=== PATIENT | female | born 1950 | race Hispanic/Latino ===

== ENCOUNTER 2019-01-11 23:16 | Observation (INO) | payer OTHER ==
[2019-01-12 01:12] LABS: Absolute Lymphocytes (CBC) 1.8 K/uL (0.7-4.9); Absolute Monocytes 0.8 K/uL (0.1-1.3); Absolute Neutrophil 5.8 K/uL (1.8-8.0); Basophils % 0.5 % (0-1.3); Eosinophils % 1.7 % (0-4.4); Hematocrit 27.8 % (36.0-45.0); Lymphocytes % 21.3 % (15.3-44.8); MPV 8.9 fL (7.6-11.3); Monocytes % 9.3 % (3.3-12.3); RBC Red Blood Cell Count 3.66 M/uL (3.86-4.86)
[2019-01-12 01:13] LABS: Protime INR 0.99
[2019-01-12 01:30] LABS: ALT/SGPT 19 U/L (12-78); AST/SGOT 15 U/L (15-37); Albumin 3.9 g/dL (3.4-5.0); Alkaline Phosphatase 95 U/L (45-117); BUN Blood Urea Nitrogen 23 mg/dL (7-18); Bicarbonate 29 mmol/L (21-32); Bilirubin Direct < 0.1 mg/dL (0-0.2); Bilirubin Total 0.2 mg/dL (0.2-1.0); Glucose Level 144 mg/dL (74-106); Magnesium 2.5 mg/dL (1.8-2.4); NT PRO-BNP 303 pg/mL (<125); Potassium 3.8 mmol/L (3.5-5.1); Protein, Total 7.2 g/dL (6.4-8.2); Sodium Level 143 mmol/L (136-145); Troponin (Emerg Dept Use Only) 0.02 ng/mL (0.0-0.045)
[2019-01-12] MEDS ORDERED: ACETAMINOPHEN 500 MG TAB PO PRN (02:55)
[2019-01-12] MEDS ORDERED: ONDANSETRON 4 MG/2 ML VIAL IV PRN (02:55)
[2019-01-12] MEDS ORDERED: IPRATROPIUM BROM 0.5MG/2.5ML NEB PRN (02:55)
[2019-01-12] MEDS ORDERED: MORPHINE 2 MG/ML SYR IV PRN (02:55)
[2019-01-12] MEDS ORDERED: ALBUTEROL 2.5 MG/3 ML NEB SOL NEB PRN (02:55)
[2019-01-12] MEDS ORDERED: SODIUM CHLORIDE 0.9% 10ML INJ IV PRN (03:01)
--- NOTE | 2019-01-12 03:01 | ER ---
Nurse's Notes [facility] Name: Sharon Medina Age: 68 yrs Sex: Female : 1950 Arrival Date: 01/11/2019 Time: 23:18 Bed 20 Private MD: Diagnosis: Chest pain, unspecified;Shortness of breath Presentation: 01/11 23:25 Presenting complaint: Patient states: I have been having chest pain and shortness of jb4 breath for about the past 2 weeks. It feels the same as it did the last time I had bronchitis. 23:25 Transition of care: patient was not received from another setting of care. Onset of jb4 symptoms was December 28, 2018. Risk Assessment: Do you want to hurt yourself or someone else? Patient reports no desire to harm self or others. Initial Sepsis Screen: Does the patient meet any 2 criteria? No. Patient's initial sepsis screen is negative. Does the patient have a suspected source of infection? No. Patient's initial sepsis screen is negative. Care prior to arrival: None. 23:25 Method Of Arrival: Ambulatory jb4 23:25 Acuity: DEBBI 3 jb4 Triage Assessment: 23:25 General: Appears in no apparent distress. uncomfortable, Behavior is calm, cooperative, jb4 appropriate for age. Pain: Complains of pain in chest Pain radiates to right scapular area Pain currently is 6 out of 10 on a pain scale. Quality of pain is described as pressure, Pain began 2 weeks ago. EENT: No signs and/or symptoms were reported regarding the EENT system. Neuro: Level of Consciousness is awake, alert, obeys commands, Oriented to person, place, time, Appropriate for age. Cardiovascular: Heart tones S1 S2 present Patient's skin is warm and dry. Rhythm is sinus rhythm. Respiratory: Airway is patent Respiratory effort is even, labored, Respiratory pattern is regular, symmetrical, Breath sounds are clear bilaterally. GI: No signs and/or symptoms were reported involving the gastrointestinal system. : No signs and/or symptoms were reported regarding the genitourinary system. Derm: Skin is intact, Skin is pink, warm \T\ dry. Musculoskeletal: Circulation, motion, and sensation intact. Historical: - Allergies: 23:25 No Known Allergies; jb4 - Home Meds: 23:25 ProAir HFA 90 mcg/actuation inhalation HFAA [Active]; furosemide 40 mg Oral tab jb4 [Active]; enalapril maleate 20 mg Oral tab [Active]; atenolol 50 mg Oral tab [Active]; docusate sodium 100 mg Oral cap [Active]; pravastatin 20 mg oral tab [Active]; potassium chloride 20 mEq Oral TbER [Active]; Proctosol HC 2.5 % rectal crea [Active]; - PMHx: 23:25 Hyperlipidemia; Hypertension; hypokalemia; jb4 - PSHx: 23:25 Eyes; jb4 - Immunization history:: Adult Immunizations unknown. - Social history:: Smoking status: Patient/guardian denies using tobacco, Patient/guardian denies using alcohol, street drugs. - Ebola Screening: : No symptoms or risks identified at this time. Screenin:25 Abuse screen: Denies threats or abuse. Nutritional screening: No deficits noted. jb4 Tuberculosis screening: No symptoms or risk factors identified. Fall Risk None identified. Assessment: 23:25 General: see triage assessment.. Pain: Complains of pain in chest Pain radiates to jb4 right scapular area Pain currently is 6 out of 10 on a pain scale. Quality of pain is described as pressure. 01/12 00:59 Reassessment: Patient appears in no apparent distress at this time. Patient and/or jb4 family updated on plan of care and expected duration. Pain level reassessed. Patient is alert, oriented x 3, equal unlabored respirations, skin warm/dry/pink. 02:00 Reassessment: Patient appears in no apparent distress at this time. Patient and/or jb4 family updated on plan of care and expected duration. Pain level reassessed. Patient is alert, oriented x 3, equal unlabored respirations, skin warm/dry/pink. Patient states feeling better. 03:00 Reassessment: Patient appears in no apparent distress at this time. Patient and/or jb4 family updated on plan of care and expected duration. Pain level reassessed. Patient is alert, oriented x 3, equal unlabored respirations, skin warm/dry/pink. 03:30 Reassessment: Patient appears in no apparent distress at this time. Patient and/or jb4 family updated on plan of care and expected duration. Pain level reassessed. Patient is alert, oriented x 3, equal unlabored respirations, skin warm/dry/pink. Vital Signs: 01/11 23:25 BP 139 / 70; Pulse 89; Resp 20; Temp 99.3; Pulse Ox 94% on R/A; Weight 72.57 kg (R); jb4 Height 5 ft. 0 in. (152.40 cm) (R); Pain 6/10; 01/12 00:45 BP 118 / 48; Pulse 76; Resp 16; Pulse Ox 95% on R/A; jb4 02:00 BP 114 / 45; Pulse 76; Resp 17; Pulse Ox 95% on R/A; jb4 03:00 BP 116 / 65; Pulse 77; Resp 18; Pulse Ox 96% on R/A; jb4 03:45 BP 121 / 52; Pulse 80; Resp 20; Pulse Ox 96% on R/A; jb4 01/11 23:25 Body Mass Index 31.25 (72.57 kg, 152.40 cm) jb4 ED Course: 01/11 23:18 Patient arrived in ED. ag3 23:25 Arm band placed on left wrist. EKG completed in triage. Results shown to MD. jb4 23:25 Patient has correct armband on for positive identification. Placed in gown. Bed in low jb4 position. Call light in reach. Side rails up X 1. satellite project site monitor on. Pulse ox on. NIBP on. 23:25 Patient maintains SpO2 saturation greater than 95% on room air. jb4 23:51 Omar Kamara, MAUREEN is Primary Nurse. jb4 23:53 Triage completed. jb4 23:54 Scott Ma NP is PHCP. pm1 23:54 Chilango Vaughan MD is Attending Physician. pm1 01/12 00:40 X-ray completed. Portable x-ray completed in exam room. Patient tolerated procedure kw well. 00:42 XRAY Chest (1 view) In Process Unspecified. EDMS 00:54 Inserted saline lock: 20 gauge in right antecubital area, using aseptic technique. ag4 Blood collected. 02:59 Blake Duarte MD is Hospitalizing Provider. pm1 03:45 No provider procedures requiring assistance completed. Patient admitted, IV remains in jb4 place. Administered Medications: No medications were administered Outcome: 03:00 Decision to Hospitalize by Provider. pm1 03:45 Admitted to Tele accompanied by tech, via wheelchair, room 420, with chart, Report jb4 called to MAUREEN Rockwell 03:45 Condition: stable 03:45 Discharge instructions given to patient, family, Instructed on the need for admit, Demonstrated understanding of instructions. 04:02 Patient left the ED. jb4 Signatures: Dispatcher [employer] EDMS Jessica Montalvo Patrick, NP ENGINEERING AID pm1 Omar Kamara RN RN jb4 Isis Hollingsworth ag3 Rodney Beck ag4 Corrections: (The following items were deleted from the chart) 02:24 00:59 Reassessment: Patient appears in no apparent distress at this time. No changes jb4 from previously documented assessment. Patient and/or family updated on plan of care and expected duration. Pain level reassessed. Patient is alert, oriented x 3, equal unlabored respirations, skin warm/dry/pink. jb4
--- NOTE | 2019-01-12 03:01 | EDPHYS ---
Physician Documentation [facility] Name: Sharon Medina Age: 68 yrs Sex: Female : 1950 Arrival Date: 01/11/2019 Time: 23:18 Bed 20 Private MD: Chilango Cardona HPI: 01/12 01:00 This 68 yrs old Female presents to ER via Ambulatory with complaints of Chest pm1 Pain. 01:00 The patient or guardian reports chest pain that is located primarily in the mid-sternal pm1 area. Onset: 2 week(s) ago. The pain does not radiate. Associated signs and symptoms: Pertinent positives: shortness of breath, rectal bleeding, Pertinent negatives: abdominal pain, cough. The chest pain is described as a pressure. Duration: The patient or guardian reports multiple episodes. The patient has not experienced similar symptoms in the past. The patient has not recently seen a physician, the patient's primary care provider is Dr. Dr. Jorge. Patient with 5 months of bright red rectal bleeding. Has had colonoscopy with Dr. Greer in August and September and told that she has internal and external hemorrhoids. Has another appointment with Dr. Greer this following Wednesday for reevaluation. Dr. Jorge nishi blood on Wednesday and her Hgb was 9.0 which is her baseline. Historical: - Allergies: 01/11 23:25 No Known Allergies; jb4 - Home Meds: 23:25 ProAir HFA 90 mcg/actuation inhalation HFAA [Active]; furosemide 40 mg Oral tab jb4 [Active]; enalapril maleate 20 mg Oral tab [Active]; atenolol 50 mg Oral tab [Active]; docusate sodium 100 mg Oral cap [Active]; pravastatin 20 mg oral tab [Active]; potassium chloride 20 mEq Oral TbER [Active]; Proctosol HC 2.5 % rectal crea [Active]; - PMHx: 23:25 Hyperlipidemia; Hypertension; hypokalemia; jb4 - PSHx: 23:25 Eyes; jb4 - Immunization history:: Adult Immunizations unknown. - Social history:: Smoking status: Patient/guardian denies using tobacco, Patient/guardian denies using alcohol, street drugs. - Ebola Screening: : No symptoms or risks identified at this time. ROS: 01/12 01:00 Constitutional: Negative for fever, chills, and weight loss, Eyes: Negative for injury, pm1 pain, redness, and discharge, ENT: Negative for injury, pain, and discharge, Neck: Negative for injury, pain, and swelling. Abdomen/GI: Negative for abdominal pain, nausea, vomiting, diarrhea, and constipation, Back: Negative for injury and pain, : Negative for injury, bleeding, discharge, and swelling, MS/Extremity: Negative for injury and deformity, Skin: Negative for injury, rash, and discoloration, Neuro: Negative for headache, weakness, numbness, tingling, and seizure. Cardiovascular: Positive for chest pain, Negative for edema, orthopnea, palpitations, paroxysmal nocturnal dyspnea. Respiratory: Positive for shortness of breath, Negative for cough, sputum production, wheezing. 01:00 Abdomen/GI: Positive for rectal bleeding. pm1 Exam: 01:00 Constitutional: This is a well developed, well nourished patient who is awake, alert, pm1 and in no acute distress. Head/Face: Normocephalic, atraumatic. Eyes: Pupils equal round and reactive to light, extra-ocular motions intact. Lids and lashes normal. Conjunctiva and sclera are non-icteric and not injected. Cornea within normal limits. Periorbital areas with no swelling, redness, or edema. ENT: Nares patent. No nasal discharge, no septal abnormalities noted. Tympanic membranes are normal and external auditory canals are clear. Oropharynx with no redness, swelling, or masses, exudates, or evidence of obstruction, uvula midline. Mucous membranes moist. Neck: Trachea midline, no thyromegaly or masses palpated, and no cervical lymphadenopathy. Supple, full range of motion without nuchal rigidity, or vertebral point tenderness. No Meningismus. Chest/axilla: Normal chest wall appearance and motion. Nontender with no deformity. No lesions are appreciated. Cardiovascular: Regular rate and rhythm with a normal S1 and S2. No gallops, murmurs, or rubs. Normal PMI, no JVD. No pulse deficits. Respiratory: Lungs have equal breath sounds bilaterally, clear to auscultation and percussion. No rales, rhonchi or wheezes noted. No increased work of breathing, no retractions or nasal flaring. Abdomen/GI: Soft, non-tender, with normal bowel sounds. No distension or tympany. No guarding or rebound. No evidence of tenderness throughout. 01:00 Back: No spinal tenderness. No costovertebral tenderness. Full range of motion. pm1 Skin: Warm, dry with normal turgor. Normal color with no rashes, no lesions, and no evidence of cellulitis. MS/ Extremity: Pulses equal, no cyanosis. Neurovascular intact. Full, normal range of motion. 01:00 Skin: Appearance: normal except for affected area, Color: pale. 01:00 Neuro: Orientation: is normal, Motor: is normal, Sensation: is normal. Vital Signs: 01/11 23:25 BP 139 / 70; Pulse 89; Resp 20; Temp 99.3; Pulse Ox 94% on R/A; Weight 72.57 kg (R); jb4 Height 5 ft. 0 in. (152.40 cm) (R); Pain 6/10; 01/12 00:45 BP 118 / 48; Pulse 76; Resp 16; Pulse Ox 95% on R/A; jb4 02:00 BP 114 / 45; Pulse 76; Resp 17; Pulse Ox 95% on R/A; jb4 03:00 BP 116 / 65; Pulse 77; Resp 18; Pulse Ox 96% on R/A; jb4 03:45 BP 121 / 52; Pulse 80; Resp 20; Pulse Ox 96% on R/A; jb4 01/11 23:25 Body Mass Index 31.25 (72.57 kg, 152.40 cm) jb4 MDM: 01/11 23:54 Patient medically screened. pm1 01/12 02:55 Physician consultation: Blake Duarte MD was contacted at 02:55, regarding admission, pm1 patient's condition, and will see patient. 02:59 Data reviewed: vital signs. Data interpreted: Pulse oximetry: on room air is 95 %. pm1 Interpretation: normal. Counseling: I had a detailed discussion with the patient and/or guardian regarding: the historical points, exam findings, and any diagnostic results supporting the discharge/admit diagnosis, lab results, radiology results, the need for further work-up and treatment in the hospital. 01/12 00:02 Order name: Basic Metabolic Panel; Complete Time: 01:40 pm1 01/12 00:02 Order name: CBC with Diff; Complete Time: 01:20 pm1 01/12 00:02 Order name: LFT's; Complete Time: 01:40 pm1 01/12 00:02 Order name: Magnesium; Complete Time: 01:40 pm1 01/12 00:02 Order name: NT PRO-BNP; Complete Time: 01:40 pm1 01/12 00:02 Order name: PT-INR; Complete Time: 01:21 pm1 01/12 00:02 Order name: Troponin (emerg Dept Use Only); Complete Time: 01:40 pm1 01/12 03:03 Order name: CBC with Automated Diff EDMS 01/12 03:03 Order name: CBC with Automated Diff EDMS 01/12 03:03 Order name: CBC with Automated Diff EDMS 01/12 03:03 Order name: Comprehensive Metabolic Panel EDMS 01/12 03:03 Order name: Comprehensive Metabolic Panel EDMS 01/12 03:03 Order name: Comprehensive Metabolic Panel EDMS 01/12 03:03 Order name: Troponin I EDMS 01/12 00:02 Order name: XRAY Chest (1 view) pm1 01/12 00:02 Order name: EKG; Complete Time: 00:06 pm1 01/12 00:02 Order name: Cardiac monitoring; Complete Time: 00:57 pm1 01/12 00:02 Order name: EKG - Nurse/Tech; Complete Time: 00:57 pm1 01/12 00:02 Order name: IV Saline Lock; Complete Time: 00:57 pm1 01/12 00:02 Order name: Labs collected and sent; Complete Time: 00:57 pm01/12 00:02 Order name: O2 Per Protocol; Complete Time: 00:57 pm1 01/12 00:02 Order name: O2 Sat Monitoring; Complete Time: 00:57 pm1 01/12 03:03 Order name: CONS Pharmacy Consult EDMS 01/12 03:03 Order name: CONS Physician Consult EDMS 01/12 03:03 Order name: Heart Healthy EDMS 01/12 03:03 Order name: Troponin I EDMS 01/12 03:04 Order name: Echo with Doppler EDMS 01/12 03:05 Order name: Echo with Doppler EDMS Administered Medications: No medications were administered Disposition: 07:25 Co-signature as Attending Physician, Chilango Vaughan MD I agree with the assessment and gin plan of care. Disposition: 01/12/19 03:00 Hospitalization ordered by Blake Duarte for Observation. Preliminary diagnosis are Chest pain, unspecified, Shortness of breath. - Bed requested for Telemetry/MedSurg (observation). - Status is Observation. jb4 - Condition is Stable. - Problem is new. - Symptoms have improved. UTI on Admission? No Signatures: Dispatcher [employer] EDMS Chilango Vaughan MD MD cha Garcia, Cindy, RN RN Scott Ma NP SYSTEMS ADMINISTRATOR pm1 Omar Kamara RN RN jb4 Corrections: (The following items were deleted from the chart) 03:06 01:00 Constitutional: This is a well developed, well nourished patient who is awake, pm1 alert, and in no acute distress. Head/Face: Normocephalic, atraumatic. Eyes: Pupils equal round and reactive to light, extra-ocular motions intact. Lids and lashes normal. Conjunctiva and sclera are non-icteric and not injected. Cornea within normal limits. Periorbital areas with no swelling, redness, or edema. ENT: Nares patent. No nasal discharge, no septal abnormalities noted. Tympanic membranes are normal and external auditory canals are clear. Oropharynx with no redness, swelling, or masses, exudates, or evidence of obstruction, uvula midline. Mucous membranes moist. Neck: Trachea midline, no thyromegaly or masses palpated, and no cervical lymphadenopathy. Supple, full range of motion without nuchal rigidity, or vertebral point tenderness. No Meningismus. Chest/axilla: Normal chest wall appearance and motion. Nontender with no deformity. No lesions are appreciated. Cardiovascular: Regular rate and rhythm with a normal S1 and S2. No gallops, murmurs, or rubs. Normal PMI, no JVD. No pulse deficits. Respiratory: Lungs have equal breath sounds bilaterally, clear to auscultation and percussion. No rales, rhonchi or wheezes noted. No increased work of breathing, no retractions or nasal flaring. Abdomen/GI: Soft, non-tender, with normal bowel sounds. No distension or tympany. No guarding or rebound. No evidence of tenderness throughout. pm1 03:07 03:00 Hospitalization Ordered by Blake Duarte MD for Observation. Preliminary cg diagnosis is Chest pain, unspecified; Shortness of breath. Bed requested for Telemetry/MedSurg (observation). Status is Observation. Condition is Stable. Problem is new. Symptoms have improved. UTI on Admission? No. pm1 04:02 03:07 01/12/2019 03:00 Hospitalization Ordered by Blake Duarte MD for Observation. jb4 Preliminary diagnosis is Chest pain, unspecified; Shortness of breath. Bed requested for Telemetry/MedSurg (observation). Status is Observation. Condition is Stable. Problem is new. Symptoms have improved. UTI on Admission? No. cg
[2019-01-12 05:19] LABS: Absolute Lymphocytes (CBC) 2.3 K/uL (0.7-4.9); Absolute Monocytes 0.8 K/uL (0.1-1.3); Absolute Neutrophil 5.1 K/uL (1.8-8.0); Basophils % 0.5 % (0-1.3); Eosinophils % 1.6 % (0-4.4); Hematocrit 26.8 % (36.0-45.0); Lymphocytes % 27.5 % (15.3-44.8); MPV 8.2 fL (7.6-11.3); RBC Red Blood Cell Count 3.55 M/uL (3.86-4.86)
[2019-01-12 05:46] LABS: Albumin 3.8 g/dL (3.4-5.0); Bilirubin Total 0.2 mg/dL (0.2-1.0); Potassium 4.1 mmol/L (3.5-5.1); Protein, Total 7.1 g/dL (6.4-8.2)
[2019-01-12] MEDS ORDERED: METOPROLOL TAR 25 MG TAB PO SCH (06:00)
[2019-01-12 06:04] VITALS: BMI 32.0
[2019-01-12] MEDS: PANTOPRAZOLE 40 MG INJ IVP SCH ×2 (06:37→09:59)
[2019-01-12] MEDS: NA CHLORIDE 0.9% 1,000 ML IV SCH ×2 (06:37→15:39)
--- NOTE | 2019-01-12 07:05 | RAD REPORT ---
EXAM DESCRIPTION: RAD - Chest Single View - 01/12/2019 12:43 am CLINICAL HISTORY: Chest pain, shortness of breath COMPARISON: January 2015 TECHNIQUE: AP portable chest image was obtained 0041 hours . FINDINGS: No focal lung parenchymal process seen. Shallow inspiration accentuates lung markings in t he medial right base and retrocardiac left base. Pneumonia is doubtful but followup two view imaging could be obtained if the patient remains symptomatic. No failure or volume overload. Heart and vascul ature are normal. No measurable pleural effusion and no pneumothorax. No acute bony abnormality seen. No acute aortic findings suspected. IMPRESSION: Limited portable imaging without an acute process confirmed. Medial right base and left retrocardiac opacities are probably atelectasis with shallow inspiration. Repeat Two view chest could be obtained if the patient has any findings are symptoms referable to eit her lung base.
[2019-01-12 07:40] VITALS: O2SAT 96
[2019-01-12 07:45] LABS: Urine Appearance CLOUDY; Urine Bilirubin NEGATIVE (NEG); Urine Blood TRACE (NEG); Urine Color YELLOW; Urine Glucose NEGATIVE (NEG); Urine Protein NEGATIVE (NEG); Urine Specific Gravity 1.015 (1.005-1.030); Urine Urobilinogen 0.2 mg/dL (0.2-1.0); Urine pH 7.5 (5.0-7.0)
[2019-01-12 07:53] LABS: Urine Microscopic Reflex ORDER UMIC
[2019-01-12 08:05] LABS: Urine Amorphous Sediment 1+ /HPF (NONE SEEN); Urine Bacteria >50 /HPF (<20); Urine Culture Reflex Order REFLEXED; Urine Mucus LIGHT /HPF (NONE SEEN)
[2019-01-12] MEDS ORDERED: ASPIRIN EC 81 MG TAB PO SCH (09:00)
[2019-01-12] MEDS ORDERED: REGADENOSON 0.4 MG/5 ML SYR IV ONE (09:32)
--- NOTE | 2019-01-12 09:49 | EKG ---
Test Date: 2019-01-11 Test Time: 23:38:07 Canal Boat Operator: DEBRA MEASUREMENT RESULTS: Intervals: Rate: 89 FL: 192 QRSD: 76 QT: 380 QTc: 462 [place]: P: 31 FL: 192 QRS: -2 T: 19 INTERPRETIVE STATEMENTS: Normal sinus rhythm Normal ECG Compared to ECG 02/04/2015 23:06:05 No significant changes Electronically Signed On 01-12-19 08:33:26 OIL EXPELLER by Marvin Fabian
[2019-01-12] MEDS ORDERED: CEFTRIAXONE/SWI 1gm 1 GM/10 ML SYR IV SCH (12:00)
--- NOTE | 2019-01-12 12:54 | ECHO ---
HEIGHT: 5 ft 0 in WEIGHT: 164 lb 1.6 oz DATE OF STUDY: 01/13/[address]: Blake Duarte MD 2-DIMENSIONAL: YES M.MODE: YES DOPPLER: YES COLOR FLOW: YES TDS: NO PORTABLE: NO DEFINITY: NO BUBBLE STUDY: NO DIAGNOSIS: CHEST PAIN CARDIAC HISTORY: CATHERIZATION: NO SURGERY: NO PROSTHETIC VALVE: NO PACEMAKER: NO MEASUREMENTS (cm) DIASTOLIC (NORMALS) SYSTOLIC (NORMALS) IVSd 1.2 (0.6-1.2) LA Diam 4.1 (1.9-4.0) LVEF 78% LVIDd 5.1 (3.5-5.7) LVIDs 2.7 (2.0-3.5) %FS 47% LVPWd 1.1 (0.6-1.2) Ao Diam 2.9 (2.0-3.7) 2 DIMENSIONAL ASSESSMENT: RIGHT ATRIUM: NORMAL LEFT ATRIUM: DILATED RIGHT VENTRICLE: NORMAL LEFT VENTRICLE: NORMAL TRICUSPID VALVE: NORMAL MITRAL VALVE: MILD ANTERIOR LEAFLET THICKENING PULMONIC VALVE: NORMAL AORTIC VALVE: NORMAL PERICARDIAL EFFUSION: NONE AORTIC ROOT: NORMAL LEFT VENTRICULAR WALL MOTION: NORMAL DOPPLER/COLOR FLOW: MILD TRICUSPID AND MITRAL REGURGITATION. NORMAL RIGHT VENTRICULAR SYSTOLIC PRESSURE. COMMENTS: NORMAL LEFT VENTRICULAR EJECTION FRACTION. DILATED LEFT ATRIUM. MILD ANTERIOR MITRAL LEAFLET THICKENING. MILD TRICUSPID AND MITRAL REGURGITATION. TECHNOLOGIST: Bette DE PAZ
--- NOTE | 2019-01-12 13:14 | CON ---
CARDIOLOGY CONSULT History Of Present Illness: A 68-year-old woman. Ms. Medina is admitted to the hospital for chest tightness, shortness of breath, fatigue with exertion. She has never had heart disease before. She has been losing a lot of blood. She sees it. It is bright red blood, sometimes huge clots and is r unning quite anemic. Hemoglobin is 8.7 today. In the not very distant past, her hemoglobin was norm al. She has had a colonoscopy. Apparently, she had some diverticula. No treatment has been done th at has stopped the bleeding as of yet, and she was not sure if she was having heart trouble or sympto ms of severe anemia. Since being here in the hospital, her cardiac enzymes are normal. BUN and crea tinine are normal. Blood sugars slightly elevated 144 and 128. Her EKG is within normal limits. Th e patient has no drug allergies. She has a very recent history of bright red blood per rectum, long- standing history of hypertension and dyslipidemia. She has never had diabetes. She takes potassium, enalapril, atenolol, pravastatin, albuterol, furosemide. She uses no tobacco. Physical Examination: General: 5 feet tall, 164 pounds. HEENT: Normal. Lungs: Clear. Cardiac: Exam normal. Abdomen: Soft. Extremities: Normal. Impression: My impression is that the patient probably is not having an acute coronary syndrome, but a pharmacologic nuclear stress test will help us to be more certain about that. MAIKOL Voice ID: [id number] Report ID: [id number]
[2019-01-12] MEDS ORDERED: HYDROCORTISONE 2.5% RECT CR PR SCH (14:00)
[2019-01-12 14:48] VITALS: BP 114/61; TEMP 97.5
--- NOTE | 2019-01-12 16:17 | RAD REPORT ---
EXAM DESCRIPTION: NM - Rest Stress Cardiac Imaging - 01/12/2019 3:55 pm CLINICAL HISTORY: Chest pain. COMPARISON: 2014 TECHNIQUE: The patient was administered approximately 10mCi of Tc 99m Sestamibi prior to resting SPE CT imaging of the heart. The patient was then administered approximately 30 mCi of Tc 99m Sestamibi f ollowing exercise or pharmacologic stress. Multiplanar SPECT images were reviewed. FINDINGS: There is uniformity of radiotracer uptake involving the entire left ventricular myocardiu m on rest and stress images. The left ventricular ejection fraction equals 76% IMPRESSION: Negative for a myocardial perfusion defect
[2019-01-12] MEDS ORDERED: ATORVASTATIN 10 MG TAB PO SCH (21:00)
--- NOTE | 2019-01-13 02:10 | P.HP ---
Certification for Inpatient Patient admitted to: Observation With expected LOS: <2 Midnights Patient will require the following post-hospital care: None Practitioner: I am a practitioner with admitting privileges, knowledge of patient current condition, hospital course, and medical plan of care. Services: Services provided to patient in accordance with Admission requirements found in Title 42 Section 412.3 of the Code of Federal Regulations Patient History Date of Service: 01/12/19 Reason for admission: GI bleeding /shortness of breath/chest pain History of Present Illness: patient is a 68-year-old female who came to the hospital with chest pain and shortness of breath. Patient also has had some lower GI bleeding. This symptom has been going on for the last week and gotten worse. She came to the hospital for further evaluation. Patient has numerous risk factors. Patient has a family history as well as hypertension and dyslipidemia. She has been treated in the past for angina from coronary artery disease. She will need to be evaluated by Cardiology further workup. Allergies No Known Drug Allergies Allergy (Verified 02/12/17 09:50) Unknown Home Medications: Albuterol Sulfate [Proair Hfa] 1 puff IH Q4HP PRN 02/05/15 Atenolol [Tenormin*] 50 mg pe PO DAILY 02/05/15 Enalapril [Vasotec*] 20 mg PO DAILY 02/05/15 Furosemide [Lasix*] 1 tab PO DAILY 02/05/15 Potassium Chloride 20 meq PO DAILY 02/05/15 Pravastatin Sodium [Pravachol] 20 mg PO DAILY 02/05/15 Proctosol 1 tub TOP TID 01/12/19 - Past Medical/Surgical History Has patient received pneumonia vaccine in the past: Yes Diabetic: No -: htn -: angina -: high cholesterol -: bronchitis -: diverticulosis -: quirino cataract surgery - Family History Mother Medical History: Heart disease, Diabetes Notes: open heart sx, pacemaker placed, Father Medical History: Heart disease Notes: open heart sx - Social History Smoking Status: Former smoker Alcohol use: No CD- Drugs: No Caffeine use: Yes Place of Residence: Home Review of Systems 10-point ROS is otherwise unremarkable Physical Examination - Vital Signs Temperature: 97.5 F Blood Pressure: 114/61 Pulse: 74 Respirations: 18 Pulse Ox (%): 95 - Physical Exam General: Alert, In no apparent distress, Oriented x3 HEENT: Atraumatic, PERRLA, Mucous membr. moist/pink, EOMI, Sclerae nonicteric Neck: Supple, 2+ carotid pulse no bruit, No LAD, Without JVD or thyroid abnormality Respiratory: Clear to auscultation bilaterally, Normal air movement Cardiovascular: Regular rate/rhythm, Normal S1 S2, No murmurs Gastrointestinal: Normal bowel sounds, Soft and benign, Non-distended, No tenderness Musculoskeletal: No tenderness Integumentary: No rashes Neurological: Normal gait, Normal speech, Normal strength at 5/5 x4 extr, Normal tone, Normal affect Lymphatics: No axilla or inguinal lymphadenopathy Assessment & Plan - Problems (Diagnosis) (1) Chest pain, rule out acute myocardial infarction Status: Acute (2) Hypertension Status: Acute (3) Dyslipidemia Status: Acute - Plan 1. Serial troponins and EKG 2. Cardiology consultation 3. Echocardiogram and inpatient stress test(pending cardiology evaluation) 4. Anti-platelet therapy, anti coagulation, beta-annalisa, statin, and O2 as needed 5. IV morphine for pain 6. Nitro p.r.n. 7. Ppi 8. GI consultation Discharge Plan: Home Plan to discharge in: 24 Hours - Advance Directives Does patient have a Living Will: No Does patient have a Durable POA for Healthcare: No - Code Status/Comfort Care Code Status Assessed: Yes Code Status: Full Code Critical Care: No Time Spent Managing PTS Care (In Minutes): 45
--- NOTE | 2019-01-13 07:54 | TREADPHA ---
DX: CHEST PAIN Date of Study: 01/12/2019 Ht: 5 0 Wt: 164 lb 1.6 oz Consulting Physician: ELVA MEDICATIONS: TYLENOL, ASPIRIN, PROVENTIL, LOPRESSOR, ZOFRAN, PROTONIX HISTORY: 68 YEAR OLD FEMALE WITH COMPLAINTS OF CHEST PAIN. HISTORY OF HYPERLIPIDEMIA, HYPERTENSION AND HYPOKALEMIA. PHYSICIAL EXAMINATION: RESTING B.P.: 147/70 RESTING H.R.: 79 RESTING EKG: NORMAL PROTOCOL: LEXISCAN EXERCISE TIME: 3:30 B.P. AT PEAK STRESS: 147/79 IMPRESSION: LEXISCAN INJECTED, CARIOLITE INJECTED PER PROTOCOL. SEE NUCLEAR MEDICINE REPORT. NO SUPRAVENTRICULAR TACHYCARDIA. NO VENTRICULAR TACHYCARDIA. NO PREMATURE VENTRICULAR COMPLEXES. DENIED CHEST PAIN. FOUR OUT OF TEN CHEST PRESSURE AFTER ADMINISTRATION OF LEXISCAN. NON-DIAGNOSTIC ELECTROCARDIOGRAM WITH LEXISCAN STRESS.
[2019-01-13] MEDS ORDERED: ENALAPRIL 10 MG TAB PO SCH (09:00)
[2019-01-13] MEDS ORDERED: ATENOLOL 50 MG TAB PO SCH (09:00)
[2019-01-13] MEDS ORDERED: FUROSEMIDE 40 MG TABLET PO SCH (09:00)
[2019-01-13] MEDS ORDERED: POTASSIUM CL SA 10 MEQ TAB PO SCH (09:00)
== END 2019-01-12 19:46 | disposition home or self-care (01) ==
LOC: ER 23:16 → ERHOLD 01-12 02:57 → 4TH 01-12 03:49
PROVIDERS: ADMIT Hospitalist; ATTEND Hospitalist
DX: R07.9 Chest pain, unspecified (principal); I10 Essential (primary) hypertension; E78.5 Hyperlipidemia, unspecified; K57.90 Diverticulosis of intestine, part unspecified, without perforation or abscess without bleeding
CPT/HCPCS: 36415; 71045; 78452; 80048; 80053; 80076; 83735; 83880; 84484 ×2; 85025 ×2; 85610; 87077; 87086; 87088; 87186; 93005; 93017; 93306; 99285; A9500; C9113 ×2; G0378 ×2; J0696; J2785; J7030 ×2; 81003; 81015

== ENCOUNTER 2019-04-26 10:17 | Day surgery (SDC) | payer OTHER ==
[2019-04-26] MEDS ORDERED: MIDAZOLAM HCL 2 MG/2 ML INJ ONE (10:36)
[2019-04-26] MEDS ORDERED: Ringers Lactate 1,000 ML IV ONE (10:36)
[2019-04-26] MEDS ORDERED: PROPOFOL 200 MG/20 ML VIAL IV ONE (10:36)
[2019-04-26] MEDS ORDERED: LIDOCAINE 2% MPF 5 ML VIAL ONE (10:36)
[2019-04-26] MEDS ORDERED: FENTANYL CITR 100 MCG/2 ML ONE (10:36)
[2019-04-26] MEDS ORDERED: CEFAZOLIN/SWI 1gm 1 GM/10 ML SYR ONE (10:36)
[2019-04-26 10:47] LABS: Absolute Lymphocytes (CBC) 1.9 K/uL (0.7-4.9); Absolute Monocytes 0.6 K/uL (0.1-1.3); Absolute Neutrophil 4.6 K/uL (1.8-8.0); Basophils % 0.9 % (0-1.3); Eosinophils % 1.6 % (0-4.4); Lymphocytes % 25.9 % (15.3-44.8); MPV 9.4 fL (7.6-11.3); Monocytes % 8.6 % (3.3-12.3); RBC Red Blood Cell Count 4.69 M/uL (3.86-4.86)
[2019-04-26 11:08] LABS: Potassium 4.2 mmol/L (3.5-5.1)
--- NOTE | 2019-04-26 11:14 | P.BOP ---
Preoperative diagnosis: Perianal ulcerated mass, hemorrhoids Postoperative diagnosis: same, anal stricture, friable ulcerated hard mass mass , large ulceration Primary procedure: EUA, anoscopy, incisional biospy of large ulcerated perianal mass Secondary procedure: with bleeding control Estimated blood loss: <5cc Specimen: biopsy Findings: anal stricture to the point that rigid proctoscope didnt fit. Anesthesia: General Complications: None Transferred to: Recovery Room Condition: Good
[2019-04-26] MEDS ORDERED: KETOROLAC 30 MG/ML INJ ONE (11:16)
[2019-04-26 12:41] LABS: Anisocytosis 2+; Blood Morphology Comment NOTED (NOT SEEN); Elliptocytes 1+; Hypochromasia 1+; Platelet Estimate ADEQ; Poikilocytosis SLIGHT; Urine White Blood Cell Casts OK
[2019-04-26] MEDS ORDERED: CODEINE 30MG/APAP 300MG TAB ONE (13:06)
[2019-04-26 13:58] VITALS: BP 140/76; TEMP 98.3; O2SAT 97
--- NOTE | 2019-04-27 11:35 | EKG ---
Test Date: 2019-04-26 Test Time: 10:26:58 Wood Router Hand: ANKITA MEASUREMENT RESULTS: Intervals: Rate: 69 NC: 168 QRSD: 80 QT: 400 QTc: 428 [place]: P: 9 NC: 168 QRS: -8 T: 5 INTERPRETIVE STATEMENTS: Sinus rhythm with premature supraventricular complexes Otherwise normal ECG Compared to ECG 01/11/2019 23:38:07 Atrial premature complex(es) now present Electronically Signed On 04-27-19 07:38:11 CDT by Marvin Fabian
--- NOTE | 2019-04-30 03:53 | DS ---
Date of Discharge: 04/26/2019 Diagnoses: Perianal ulcerative mass, hemorrhoids. Procedure: Examination under anesthesia, anoscopy, incisional multiple biopsies of a large perianal mass. Disposition: Home. Activity: As tolerated. No heavy lifting. Followup: Follow up in my office in 1 week. Call for appointment at [phone]. Sitz bath 3 times a day and after every bowel movement. I explained to the patient the high possibility of this to be a cancer. As soon so we have the result, we are going to call her to the office and discuss future armando atment. TOMER/JAZ Voice ID: [id number] Report ID: [id number]
--- NOTE | 2019-04-30 04:25 | OP ---
Date of Procedure: 04/26/2019 Surgeon: Lev Fuentes MD Preoperative Diagnoses: Perianal ulcerative mass, hemorrhoids. Postoperative Diagnoses: Perianal ulcerative mass, hemorrhoids plus anal stricture, friable ulcerate d hard mass, hard perianal mass, and large ulceration. Procedure: Examination under anesthesia, anoscopy, and incisional multiple biopsy of a large periana l ulcerative mass. Estimated Blood Loss: Less than 5 cc. Findings: The patient has an anal stricture. I could not perform the rigid proctoscopy because the lumen is larger than the lumen of her anus. There is a mass that have an ulceration about 3 cm on th e right side of the perianal region and that induration fills almost three-quarter of the anus. We w ere able to do the anoscopy, but with a smaller instrument that we can have at this moment. Anesthesia: General plus local. Indications: This is a case of a lady who comes to us with several-month history of a perianal disco mfort. In August, she states she had a colonoscopy and she feels perfectly fine. In February, she had a CT scan, no major problems, but recently, she noticed that she has an ulceration over the perianal region with induration and it is not healing. She has been using some creams for hemorrhoids, but i s not improving. She was sent to us for hemorrhoidectomy. I noticed in my office to have an ulceration and I explained to her that even though she has hemorrhoid, I believe she may have cyril e perianal pathology. So we explained the need for examination under anesthesia, anoscopy, rigid pro ctoscopy, possible hemorrhoidectomy, and biopsy of a perianal ulcer, perianal mass. She understands that we might not be able to hemorrhoid since I believe the hemorrhoid although is there, might not be the main cause of her problems. She understood and signed a consent. Description Of Procedure: The patient was brought to the operating room, placed in supine position. Anesthesia was given without complication. A time-out was called. The patient was placed in lithot arianne position. We did an anorectal exam but when we rigid proctoscopy, it is ju st too large for this anal stricture she has, so I could not do the rigid proctoscopy. I proceeded t o find an anoscopy that allowed me to visualize the area better that goes into the anus itself. It i s difficult to determine how far away from the anus since I do not have a good visualization due to t he large amount of stools also present in that region. It is very friable, it bleeds so easily, look like a tumor, feels like circumferential induration of about three-quarters of anus. So I proceeded to do multiple biopsies of the anal mass, the ulceration. Obtained hemostasis and the patient was b leeding already. I put a Surgicel over the area. No bleeding at this time. The patient was sent to the recovery room in stable condition. TOMER/JAZ Voice ID: [id number] Report ID: [id number]
== END 2019-04-26 13:52 | disposition home or self-care (01) ==
LOC: OR 10:17
PROVIDERS: ATTEND Surgery
PROC: 0DJD8ZZ Inspection of Lower Intestinal Tract, Via Natural or Artificial Opening Endoscopic (ICD-10-PCS; 2019-04-26)
PROC: 0DBQ0ZX Excision of Anus, Open Approach, Diagnostic (ICD-10-PCS; principal; 2019-04-26 13:00)
DX: C44.520 Squamous cell carcinoma of anal skin (principal); K62.4 Stenosis of anus and rectum; K64.9 Unspecified hemorrhoids; I10 Essential (primary) hypertension; E78.00 Pure hypercholesterolemia, unspecified; Z83.3 Family history of diabetes mellitus; Z82.49 Family history of ischemic heart disease and other diseases of the circulatory system
CPT/HCPCS: 93005; 85025; 80048; 36415; 88305; 46999; 46600; J2704; J2250; J3010; J0690

== ENCOUNTER 2020-08-20 15:53 | Inpatient (IN) | payer OTHER ==
--- OUTSIDE RECORDS SUMMARY | 2020-08-20 15:58 | XMS REPORT | Clinical Summary ---
:1950 Author Organization [facility] Address [address] [place] [address] Care Team Providers Name Role Phone Harpreet Jorge DO Primary Care Provider Allergies Active Allergy Reactions Severity Noted Date Comments Adhesive Other (See Comments) Low 06/12/2019 Tegader m for Tape-Silicones port-a-cath c auses skin tears Medications Medication Sig Dispensed Refills Start End Status Date Date atenolol (TENORMIN) Take 50 mg by 0 Active 50 MG tablet mouth daily. enalapril (VASOTEC) Take 20 mg by 0 Active 20 MG tablet mouth daily. pravastatin Take 20 mg by 0 Acti ve (PRAVACHOL) 20 MG mouth nightly. tablet potassium chloride Take 20 mEq by 0 Active (KLOR-CON) 20 mEq mouth daily. packet albuterol (ACCUNEB) Take 2.5 mg by 0 Active 2.5 mg /3 mL (0.083 nebulization %) nebulizer every 6 (six) solution hours as needed for wheezing. furosemide (LASIX) Take 40 mg by 0 Active 40 mg tablet mouth daily. iron fum/folic Take 1 capsule 0 Active acid/mv,min 15 by mouth daily. (HEMOCYTE-PLUS ORAL) omeprazole Take 40 mg by 0 Activ e (PriLOSEC) 40 MG mouth daily. capsule loperamide (IMODIUM) Take 2 mg by 0 Active 2 mg capsule mouth 4 (four) times a day as needed for diarrhea. benadryl/lidocaine/m Swish and spit 500 mL 1 07/28/20 Active aalox (MAGIC 10 mL every 6 19 MOUTHWASH) 1:1:1 (six) hours as suspension needed (mouth suspensionIndication pain). s: Mouth pain diphenoxylate-atropi 0 05/26/20 Active ne (LOMOTIL) 20 2.5-0.025 mg per tablet Proctosol HC 2.5 % 0 02/19/20 A ctive rectal cream 20 ondansetron (ZOFRAN) 0 05/23/20 Active 8 MG tablet 20 prochlorperazine 0 05/23/20 Act sierra (COMPAZINE) 10 MG 20 tablet SSD 1 % cream 0 05/16/20 Active 20 traMADoL (ULTRAM) 50 0 05/17/20 Active mg tablet 20 albuterol (PROAIR 0 05/13/20 Ac tive HFA) 90 20 mcg/actuation inhaler Hemocyte-Plus 106 mg TK ONE C PO D 0 06/08/20 Active iron- 1 mg capsule 20 potassium chloride 0 05/27/20 A ctive 20 mEq tablet 20 extended release gabapentin Take 2 capsules 120 capsule 2 06/27/20 A ctive (NEURONTIN) 300 mg (600 mg total) 20 capsule by mouth 2 (two) times a day. HYDROcodone-acetamin Take 1 tablet 0 07/14 Discontinued ophen (NORCO) by mouth every 020 7.5-325 mg per 6 (six) hours tabletIndications: as needed for acute pain moderate pain .Acute Pain. capecitabine Take 3 tabs po 84 tablet 11 10/24/20 Di scontinued (XELODA) 500 mg bid for 14 days 19 019 (Reorder) chemo tablet on and 7 days off. Start on the day of each IV chemo infusion capecitabine Take 3 tabs po 84 tablet 11 10/24/20 Di scontinued (XELODA) 500 mg bid for 14 days 19 020 chemo on and 7 days tabletIndications: off. Start on Anal cancer (HCC) the day of each IV chemo infusion sulfamethoxazole-tri Take 1 tablet 10 tablet 0 12/27/1901/01 methoprim (BACTRIM by mouth 2 020 DS) 800-160 mg per (two) times a tablet day for 5 days. gabapentin Take 1 capsule 60 capsule 2 05/01/20 Dis continued (NEURONTIN) 300 mg (300 mg total) 20 020 capsule by mouth 2 (two) times a day for 30 days. gabapentin Take 1 capsule 120 capsule 2 05/27/20 Di scontinued (NEURONTIN) 300 mg (300 mg total) 20 020 (Reorder) capsule by mouth 2 (two) times a day. HYDROcodone-acetamin 0 06/01/20 Discontinued ophen (NORCO) 10-325 20 020 mg per tablet dexamethasone Take 1 tablet 60 tablet 1 07/11/20 Ex pired (DECADRON) 4 MG (4 mg total) by 20 020 tablet mouth 3 (three) times a day for 20 days. 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/30/2020 Secondary malignant neoplasm of brain 07/30/2020 Secondary malignant neoplasm of liver 05/13/2020 Anemia 05/06/2020 Encounter for central line care 09/14/2019 Chemotherapy induced neutropenia 06/10/2019 Dehydration 05/26/2019 Anal cancer 05/25/2019 Cancer Staging: Clinical stage from 04/26: Stage IIIC (cT3, cN1, cM0) - Signed by Danisha Duarte PA on 05/13/2020 Pathologic: Stage IIIC - Unsigned Encounters Date Type Specialty Care Team Description 08/20/2020 Telephone Oncology Marcelina Brambila MD 08/16/2020 Orders Only Oncology Provider, Unknown 08/16/2020 Travel 08/15/2020 Hospital Encounter Radiation Oncology Rafael Ho econdary malignant neoplasm of liver (HCC) (Primary Dx); MD Kobe Secondary malig nant neoplasm of brain (HCC); Secondary malig nant neoplasm of vulva (HCC); Anal cancer (HC C) 08/15/2020 Hospital Encounter Radiation Oncology 08/15/2020 Orders Only Oncology Provider, Unknown 08/15/2020 Travel 08/13/2020 Lab Lab Rafael Ho Fever and chi lls; MD Kobe Anal cancer (HC C) 08/13/2020 Hospital Encounter Radiation Oncology Rafael Ho econdary malignant neoplasm of brain (HCC) (Primary Dx); MD Kobe Fever and chills; Karol Al, Anal cancer ( HCC); RN Secondary malig nant neoplasm of vulva (HCC); Encounter for r adiotherapy 08/13/2020 Hospital Encounter Radiation Oncology Rafael Ho econdary malignant neoplasm of liver (HCC) (Primary Dx); MD Kobe Secondary malig nant neoplasm of brain (HCC); Secondary malig nant neoplasm of vulva (HCC); Anal cancer (HC C) 08/13/2020 Orders Only Oncology Provider, Unknown 08/13/2020 Travel 08/12/2020 Hospital Encounter Radiation Oncology Rafael Ho MD 08/12/2020 Orders Only Oncology Provider, Unknown 08/12/2020 Travel 08/09/2020 Orders Only Oncology Provider, Unknown 08/09/2020 Travel 08/08/2020 Hospital Encounter Radiation Oncology 08/08/2020 Orders Only Oncology Provider, Unknown 08/08/2020 Travel 08/07/2020 Hospital Encounter Radiation Oncology Rafael Ho econdary malignant neoplasm of brain (HCC) (Primary Dx); MD Kobe Secondary malig nant neoplasm of vulva (HCC); Secondary malig nant neoplasm of liver (HCC) 08/07/2020 Hospital Encounter Radiation Oncology Rafael Ho econdary malignant neoplasm of brain (HCC) (Primary Dx); MD Kobe Secondary malignant neoplasm of vulva (H CC); Marlon, Anal cancer (HC C); Meagan Encounter for r adiotherapy 08/07/2020 Orders Only Oncology Provider, Unknown 08/07/2020 Travel 08/06/2020 Orders Only Oncology Provider, Unknown 08/06/2020 Travel 08/02/2020 Hospital Encounter Radiation Oncology 08/02/2020 Orders Only Oncology Provider, Unknown 08/01/2020 Hospital Encounter Radiation Oncology 08/01/2020 Orders Only Oncology Provider, Unknown 08/01/2020 Travel 07/31/2020 Orders Only Oncology Provider, Unknown 07/31/2020 Travel 07/30/2020 Hospital Encounter Radiation Oncology Rafael Ho econdary malignant neoplasm of brain (HCC) (Primary Dx); MD Kobe Secondary malig nant neoplasm of vulva (HCC); Anal cancer (HC C); Secondary malig nant neoplasm of liver (HCC) 07/30/2020 Hospital Encounter Radiation Oncology Rafael Ho econdary malignant neoplasm of brain (HCC) (Primary Dx); MD Kobe Anal cancer (HCC); Delilah Kaur, Secondary ma lignant neoplasm of vulva (HCC); RN Encounter for r adiotherapy 07/30/2020 Hospital Encounter Radiation Oncology 07/30/2020 Hospital Encounter Radiation Oncology Rafael Ho MD 07/30/2020 Orders Only Oncology Provider, Unknown 07/29/2020 Hospital Encounter Radiation Oncology 07/29/2020 Telephone Oncology Marcelina Brambila MD 07/29/2020 Orders Only Oncology Provider, Unknown 07/29/2020 Travel 07/26/2020 Travel 07/23/2020 Hospital Encounter Radiation Oncology Ronen Thomas MD 07/23/2020 Orders Only Oncology Provider, Unknown 07/23/2020 Travel 07/22/2020 Travel 07/22/2020 Telephone Oncology Marcelina Brambila MD 07/19/2020 Hospital Encounter Radiation Oncology Rafael Ho econdary malignant MD Kobe neoplasm of brain [facility], (HCC) (Primary Dx) Meagan 07/19/2020 Travel 07/15/2020 Hospital Encounter Radiation Oncology Rafael Ho econdary malignant neoplasm of brain (HCC) (Primary Dx); MD Kobe Anal cancer (HCC); Karol Al, Encounter for radiotherapy RN 07/15/2020 Hospital Encounter Radiation Oncology Rafael Ho MD 07/15/2020 Travel 07/15/2020 Documentation Oncology Marcelina Brambila MD 07/12/2020 Hospital Encounter Radiology Marcelina Brambila Anal c gibson (HCC) 07/12/2020 Telephone Oncology Marcelina Brambila Anal cancer (HCC) (Primary Dx) 07/11/2020 Hospital Encounter Radiology Marcelina Brambila Cancel ed (Patient) 07/11/2020 Telemedicine Oncology Marcelina Brambila Anal cancer (HCC) (Primary Dx) 07/11/2020 Travel 07/10/2020 Orders Only Oncology Marcelina Brambila Anal cancer (HCC) (Primary Dx) 07/09/2020 Hospital Encounter Radiology Marcelina Brambila Anal c gibson (HCC) 07/08/2020 Travel 07/02/2020 Telephone Oncology Marcelina Brambila MD 07/01/2020 Travel 06/27/2020 Office Visit Oncology Marcelina Brambila, Anal cancer (HCC) (Primary Dx) 06/27/2020 Infusion Oncology Marcelina Brambila Anal cancer (HCC) (Primary Dx) 06/27/2020 Travel 06/26/2020 Orders Only Oncology Marcelina Brambila Anal cancer (HCC) (Primary Dx) 06/17/2020 Infusion Oncology Marcelina Brambila Anal cancer (HCC) (Primary Dx); Anemia, unspeci fied type; Hypokalemia 06/17/2020 Orders Only Oncology Ronald Piedra, MAUREEN 06/17/2020 Travel 06/16/2020 Orders Only Oncology Marcelina Brambila, Anal cancer (HCC) (Primary Dx) 06/07/2020 Hospital Encounter Radiation Oncology Rafael Ho MD Kuruvilla, Tessy, RN 06/07/2020 Hospital Encounter Radiation Oncology Ronen Thomas MD Farach, Andrew M., MD 06/07/2020 Travel 06/07/2020 Orders Only Oncology Provider, Unknown 06/06/2020 Orders Only Oncology Rayna Osman, [facility] 06/06/2020 Orders Only Oncology Marcelina Brambila MD 06/05/2020 Hospital Encounter Radiation Oncology Ronen Thomas MD 06/05/2020 Orders Only Oncology Provider, Unknown 06/03/2020 Hospital Encounter Radiation Oncology Rafael Ho MD 06/03/2020 Orders Only Oncology Provider, Unknown 05/30/2020 Hospital Encounter Radiation Oncology Ritchie Mohamud MD 05/30/2020 Orders Only Oncology Provider, Unknown 05/29/2020 Hospital Encounter Radiation Oncology Rafael Ho MD 05/29/2020 Travel 05/28/2020 Nurse Only Oncology Marcelina Brambila Anal cancer (HCC) (Primary Dx) 05/28/2020 Hospital Encounter Radiation Oncology Rafael Ho econdary malignant neoplasm of liver (HCC) (Primary Dx); MD Kobe Anal cancer (HCC); Karol Al, Encounter for radiotherapy RN 05/28/2020 Hospital Encounter Radiation Oncology 05/28/2020 Orders Only Oncology Provider, Unknown 05/27/2020 Infusion Oncology Marcelina Brambila, Anal cancer (HCC) (Primary Dx); Encounter for c entral line care 05/27/2020 Orders Only Oncology Kayleen Zaragoza, [facility] 05/27/2020 Orders Only Oncology Marcelina Brambila MD 05/27/2020 Travel 05/26/2020 Orders Only Oncology Marcelina Brambila Anal cancer (HCC) (Primary Dx) 05/24/2020 Orders Only Pharmacy Taniya Guzman, [facility] 05/13/2020 Hospital Encounter Radiation Oncology Rafael Ho econdary malignant neoplasm of liver (HCC) (Primary Dx); MD Kobe Anal cancer (HC C) 05/13/2020 Hospital Encounter Radiation Oncology Rafael Ho econdary malignant neoplasm of liver (HCC) (Primary Dx); MD Kobe Anal cancer (HCC); Karol Al, Encounter for radiotherapy RN 05/13/2020 Hospital Encounter Radiation Oncology Rafael Ho MD 05/13/2020 Travel 05/10/2020 Telephone Radiation Oncology Rafael Ho MD 05/07/2020 Infusion Oncology Marcelina Brambila Anal cancer (HCC) (Primary Dx) 05/07/2020 Orders Only Oncology Mali Reveles, MAUREEN 05/06/2020 Infusion Oncology Marcelina Brambila Anal cancer (HCC) (Primary Dx); Anemia, unspeci fied type 05/06/2020 Orders Only Oncology Ronald Piedra, MAUREEN 05/06/2020 Travel 05/05/2020 Orders Only Oncology Marcelina Brambila Anal cancer (HCC) (Primary Dx) 05/03/2020 Telephone Oncology Ronald Piedra, MAUREEN 05/02/2020 Orders Only Oncology Rayna Osman, [facility] 05/01/2020 Office Visit Oncology Marcelina Brambila Anal cancer (HCC) (Primary Dx) 05/01/2020 Hospital Encounter Radiology Marcelina Brambila Anal c ancer (HCC) 05/01/2020 Travel 04/19/2020 Travel 04/15/2020 Office Visit Oncology Marcelina Brambila Anal cancer (HCC) (Primary Dx) 04/15/2020 Infusion Oncology Marcelina Brambila Anal cancer (HCC) (Primary Dx) 04/15/2020 Travel 04/15/2020 Orders Only Oncology Saima Kerr RN 04/12/2020 Travel 04/12/2020 Documentation Oncology Mickey Davies, MAUREEN 04/09/2020 Orders Only Oncology Brambila, Marcelina, Anal cancer (HCC) (Primary Dx) 04/02/2020 Travel 04/01/2020 Telephone Oncology Marcelina Brambila MD 03/25/2020 Infusion Oncology Marcelina Brambila Anal cancer (HCC) (Primary Dx) 03/25/2020 Orders Only Oncology Marcelina Brambila Anal cancer (HCC) (Primary Dx) 03/25/2020 Travel 03/25/2020 Orders Only Oncology Saima Kerr RN 03/22/2020 Travel 03/22/2020 Documentation Oncology Tavon Lopez, MAUREEN 03/11/2020 Hospital Encounter Radiology Marcelina Brambila Anal c gibson (HCC) 03/11/2020 Travel 03/04/2020 Infusion Oncology Marcelina Brambila Anal cancer (HCC) (Primary Dx) 03/04/2020 Orders Only Pharmacy Omar Beckett [facility] 03/04/2020 Travel 03/04/2020 Orders Only Oncology Saima Kerr RN 03/03/2020 Orders Only Oncology Marcelina Brambila Anal cancer (HCC) (Primary Dx) 03/01/2020 Telephone Oncology Tavon Lopez, MAUREEN 03/01/2020 Travel 02/28/2020 Office Visit Oncology Marcelina Brambila Anal cancer (HCC) (Primary Dx) 02/28/2020 Hospital Encounter Radiology Marcelina Brambila Anal c gibson (HCC) 02/28/2020 Travel 02/22/2020 Travel 02/14/2020 Telephone Oncology Marcelina Brambila MD 02/12/2020 Infusion Oncology Marcelina Brambila Anal cancer (HCC) (Primary Dx); Chemotherapy in duced neutropenia (HCC) 02/12/2020 Telephone Gynecologic Alejandro Murray MD Oncology 02/12/2020 Travel 02/12/2020 Orders Only Oncology Marcelina Brambila Anal cancer (HCC) (Primary Dx) 02/05/2020 Office Visit Gynecologic Alejandro Murray MD Vulvar mass ( Primary Oncology Dx) 02/05/2020 Travel 01/22/2020 Office Visit Oncology Marcelina Brambila, Anal cancer (HCC) (Primary Dx); Lesion of labia 01/22/2020 Infusion Oncology Marcelina Brambila Anal cancer (HCC) (Primary Dx) 01/22/2020 Orders Only Oncology Marcelina Brambila Anal cancer (HCC) (Primary Dx) 01/02/2020 Infusion Oncology Marcelina Brambila Anal cancer (HCC) (Primary Dx); Chemotherapy in duced neutropenia (HCC) 12/29/2019 Orders Only Oncology Marcelina Brambila MD 12/29/2019 Telephone Oncology Ronald Piedra, MAUREEN 12/29/2019 Orders Only Oncology Logan Terrazas Anal cancer (HC C) Rayna, [facility] 12/29/2019 Orders Only Oncology Rayna Osman, [facility] 12/27/2019 Office Visit Oncology Marcelina Brambila Anal cancer (HCC) (Primary Dx) 12/27/2019 Hospital Encounter Radiology Marcelina Brambila Anal c ancer (HCC) 12/27/2019 Orders Only Oncology Marcelina Brambila MD 12/22/2019 Infusion Oncology Marcelina Brambila Anal cancer (HCC) (Primary Dx) 12/15/2019 Infusion Oncology Marcelina Brambila Anal cancer (HCC) (Primary Dx) 12/07/2019 Orders Only Oncology Marcelina Brambila Anal cancer (HCC) 12/06/2019 Telephone Oncology Ronald Piedra RN 11/24/2019 Infusion Oncology Marcelina Brambila Anal cancer (HCC) (Primary Dx) 11/24/2019 Office Visit Oncology Marcelina Brambila Anal cancer (HCC) (Primary Dx) 11/19/2019 Orders Only Oncology Marcelina Brambila Anal cancer (HCC) 11/07/2019 Telephone Oncology Marcelina Brambila MD 11/03/2019 Infusion Oncology Marcelina Brambila Anal cancer (HCC) (Primary Dx) 11/03/2019 Telephone Oncology Marcelina Brambila MD 11/01/2019 Telephone Oncology Ronald Piedra, MAUREEN 10/31/2019 Orders Only Oncology Aleena Voss, [facility] 10/30/2019 Orders Only Oncology Aleena Voss, [facility] 10/29/2019 Orders Only Oncology Marcelina Brambila MD 10/29/2019 Orders Only Oncology Marcelina Brambila MD 10/25/2019 Orders Only Oncology Ronald Piedra, RN 10/25/2019 Orders Only Oncology Ronald Piedra, RN 10/24/2019 Office Visit Oncology Marcelina Brambila Anal cancer (HCC) (Primary Dx) 10/24/2019 Orders Only Oncology Ronald Piedra, RN 10/24/2019 Orders Only Oncology Nik, Anal cancer (HC C) TERENCE Beyer 10/24/2019 Orders Only Oncology Tadeo Anal cancer (HC C) MAUREEN Cardenas (Primary Dx) 10/24/2019 Telephone Oncology Marcelina Brambila MD 10/19/2019 Nurse Only Oncology Marcelina Brambila, Encounter fo r central line care (Primary Dx); Anal cancer (HC C) 10/19/2019 Hospital Encounter Radiology Marcelina Brambila, Anal c gibson (HCC); Lymphadenopathy 09/20/2019 Documentation Oncology Marcelina Brambila MD 09/20/2019 Orders Only Oncology Marcelina Brambila, Anal cancer (HCC) (Primary Dx); Lymphadenopathy 09/20/2019 Orders Only Oncology Marcelina Brambila, Anal cancer (HCC) (Primary Dx) 09/14/2019 Nurse Only Oncology Marcelina Brambila, Encounter fo r central line care (Primary Dx); Anal cancer (HC C) 09/14/2019 Office Visit Oncology Marcelina Brambila, Anal cancer (HCC) (Primary Dx) 09/14/2019 Hospital Encounter Radiology Marcelina Brambila Anal c gibson (HCC) 09/14/2019 Orders Only Oncology Ronald Piedra, RN after 08/20/2019 Family History Medical History Relation Name Comments Diabetes Son Heart disease Son Relation Name Status Comments Son Social History Tobacco Use Types Packs/Day Years Used Date Never Smoker Smokeless Tobacco: Never Used Alcohol Use Drinks/Week oz/Week Comments Never Alcohol Habits Answer Date Recorded How often do you have a drink containing alcohol? Never 05/02/2019 How many drinks containing alcohol do you have on a typical Not asked day when you are drinking? How often do you have six or more drinks on one occasion? No t asked Sex Assigned at Date Recorded Female 06/09/2019 6:21 PM CDT COVID-19 Exposure Response Date Recorded In the last month, have you been in contact with No / Unsure 08/16/2020 10:06 AM CDT someone who was confirmed or suspected to have Coronavirus / COVID-19? Last Filed Vital Signs Vital Sign Reading Time Taken Comments Blood Pressure 108/60 08/13/2020 11:00 AM CDT Pulse 103 08/13/2020 11:00 AM CDT Temperature 38.3 C (100.9 F) 08/13/2020 11:25 AM CDT Respiratory Rate 18 08/13/2020 11:00 AM CDT Oxygen Saturation 94% 08/13/2020 11:00 AM CDT Inhaled Oxygen Concentration - - Weight 57 kg (125 lb 9.6 oz) 08/13/2020 11:00 AM CDT Height 152.4 cm (5') 08/13/2020 11:00 AM CDT Body Mass Index 24.53 08/13/2020 11:00 AM CDT Plan of Treatment Date Type Specialty Care Team Description 08/21/2020 Appointment Radiation Oncology 08/21/2020 Appointment Radiation Oncology Isaias Ho MD [address] [facility] [address] [place], [place] [address] [phone] 08/22/2020 Appointment Radiation Oncology 08/23/2020 Appointment Radiation Oncology 08/26/2020 Appointment Radiation Oncology 08/27/2020 Appointment Radiation Oncology 08/28/2020 Appointment Radiation Oncology 08/29/2020 Appointment Radiation Oncology 08/30/2020 Appointment Radiation Oncology Health Maintenance Due Date Last Done Comments BREAST CANCER SCREENING 1999 COLONOSCOPY SCREENING 1999 SHINGLES VACCINES (#1) 1999 65+ PNEUMOCOCCAL VACCINE (1 of 1 - PPSV23) 2014 INFLUENZA VACCINE 07/30/2020 Implants Implanted Type Area Loan Underwriter Device Shelf Model / Identifier Expiration Serial / Date Lot Port Imlpntbl Smart Port W/ Dtchd 0.4ml 6.6fr 55cm W/ Sheath - [id number] Implantable N/A: ANGIODYNAMICS 01/26/2022 [id number] / Implanted: 05/31/[address] [facility] (Quantity not on file) Inf usion Ports N/A INC / or Accessories [id number] Procedures Procedure Name Priority Date/Time Associated Comments Diagnosis RAD ONC DAILY TREATMENT Routine 08/16/2020 10:39 Results for this AM CDT procedure are i n the results section. RAD ONC DAILY TREATMENT Routine 08/15/2020 10:38 Results for this AM CDT procedure are i n the results section. COVID-19 QUALITATIVE PCR Routine 08/13/2020 1:04 Fever and chills Results for this PM CDT Anal cancer (HCC) procedure are in the results section. SMEAR REVIEW Routine 08/13/2020 12:34 Results for this PM CDT procedure are i n the results section. HC COMPLETE BLD COUNT Routine 08/13/2020 12:34 Fever and chills Results for this W/AUTO DIFF PM CDT Anal cancer (HCC) procedure are in the results section. RAD ONC DAILY TREATMENT Routine 08/13/2020 10:34 Results for this AM CDT procedure are i n the results section. RAD ONC DAILY TREATMENT Routine 08/12/2020 11:02 Results for this AM CDT procedure are i n the results section. RAD ONC DAILY TREATMENT Routine 08/09/2020 10:29 Results for this AM CDT procedure are i n the results section. RAD ONC DAILY TREATMENT Routine 08/08/2020 10:37 Results for this AM CDT procedure are i n the results section. RAD ONC DAILY TREATMENT Routine 08/07/2020 10:34 Results for this AM CDT procedure are i n the results section. RAD ONC DAILY TREATMENT Routine 08/06/2020 10:43 Results for this AM CDT procedure are i n the results section. RAD ONC DAILY TREATMENT Routine 08/02/2020 10:11 Results for this AM CDT procedure are i n the results section. RAD ONC DAILY TREATMENT Routine 08/01/2020 10:37 Results for this AM CDT procedure are i n the results section. RAD ONC DAILY TREATMENT Routine 07/31/2020 10:39 Results for this AM CDT procedure are i n the results section. RAD ONC DAILY TREATMENT Routine 07/30/2020 10:37 Results for this AM CDT procedure are i n the results section. RAD ONC DAILY TREATMENT Routine 07/29/2020 10:17 Results for this AM CDT procedure are i n the results section. RAD ONC COURSE SUMMARY Routine 07/26/2020 4:30 R esults for this PM CDT procedure are i n the results section. RAD ONC DAILY TREATMENT Routine 07/23/2020 10:44 Results for this AM CDT procedure are i n the results section. MRI BRAIN W WO CONTRAST STAT 07/12/2020 4:16 Anal cancer ( HCC) Results for this PM CDT procedure are i n the results section. PET CT SKULL BASE TO MID Routine 07/09/2020 10:44 Anal cancer (HCC) Results for this THIGH AM CDT procedure are i n the results section. POC GLUCOSE Routine 07/09/2020 9:08 Results for this AM CDT procedure are i n the results section. ESTIMATED GFR STAT 06/27/2020 8:17 Results fo r this AM CDT procedure are i n the results section. MAGNESIUM LEVEL STAT 06/27/2020 8:17 Anal cancer (HCC) Res ults for this AM CDT procedure are i n the results section. HC COMPLETE BLD COUNT STAT 06/27/2020 8:17 Anal cancer (HC C) Results for this W/AUTO DIFF AM CDT procedure are i n the results section. COMPREHENSIVE METABOLIC STAT 06/27/2020 8:17 Anal cancer ( HCC) Results for this PANEL AM CDT procedure are i n the results section. CARCINOEMBRYONIC ANTIGEN STAT 06/27/2020 8:17 Anal cancer (HCC) Results for this (CEA) AM CDT procedure are i n the results section. PREPARE RBC STAT 06/17/2020 9:48 Anemia, unspecified Resu lts for this AM CDT type procedure are i n the results section. TYPE AND SCREEN STAT 06/17/2020 9:48 Anal cancer (HCC) Res ults for this AM CDT procedure are i n the results section. SMEAR REVIEW STAT 06/17/2020 8:42 Results for this AM CDT procedure are i n the results section. ESTIMATED GFR STAT 06/17/2020 8:42 Results fo r this AM CDT procedure are i n the results section. MAGNESIUM LEVEL STAT 06/17/2020 8:42 Anal cancer (HCC) Res ults for this AM CDT procedure are i n the results section. HC COMPLETE BLD COUNT STAT 06/17/2020 8:42 Anal cancer (HC C) Results for this W/AUTO DIFF AM CDT procedure are i n the results section. COMPREHENSIVE METABOLIC STAT 06/17/2020 8:42 Anal cancer ( HCC) Results for this PANEL AM CDT procedure are i n the results section. CARCINOEMBRYONIC ANTIGEN STAT 06/17/2020 8:42 Anal cancer (HCC) Results for this (CEA) AM CDT procedure are i n the results section. RAD ONC DAILY TREATMENT Routine 06/07/2020 10:17 Results for this AM CDT procedure are i n the results section. RAD ONC DAILY TREATMENT Routine 06/05/2020 1:40 Results for this PM CDT procedure are i n the results section. RAD ONC DAILY TREATMENT Routine 06/03/2020 1:30 Results for this PM CDT procedure are i n the results section. RAD ONC DAILY TREATMENT Routine 05/30/2020 1:47 Results for this PM CDT procedure are i n the results section. RAD ONC DAILY TREATMENT Routine 05/28/2020 1:40 Results for this PM CDT procedure are i n the results section. ESTIMATED GFR STAT 05/27/2020 8:37 Results fo r this AM CDT procedure are i n the results section. MAGNESIUM LEVEL STAT 05/27/2020 8:37 Anal cancer (HCC) Res ults for this AM CDT procedure are i n the results section. HC COMPLETE BLD COUNT STAT 05/27/2020 8:37 Anal cancer (HC C) Results for this W/AUTO DIFF AM CDT procedure are i n the results section. COMPREHENSIVE METABOLIC STAT 05/27/2020 8:37 Anal cancer ( HCC) Results for this PANEL AM CDT procedure are i n the results section. CARCINOEMBRYONIC ANTIGEN STAT 05/27/2020 8:37 Anal cancer (HCC) Results for this (CEA) AM CDT procedure are i n the results section. TRANSFUSE RED BLOOD Routine 05/06/2020 4:28 Anemia, unspecifi ed CELLS PM CDT type PREPARE RBC Routine 05/06/2020 10:26 Anemia, unspecified Resu lts for this AM CDT type procedure are i n the results section. TYPE AND SCREEN Routine 05/06/2020 10:26 Anemia, unspecified R esults for this AM CDT type procedure are i n the results section. SMEAR REVIEW STAT 05/06/2020 8:51 Results for this AM CDT procedure are i n the results section. ESTIMATED GFR STAT 05/06/2020 8:51 Results fo r this AM CDT procedure are i n the results section. MAGNESIUM LEVEL STAT 05/06/2020 8:51 Anal cancer (HCC) Res ults for this AM CDT procedure are i n the results section. HC COMPLETE BLD COUNT STAT 05/06/2020 8:51 Anal cancer (HC C) Results for this W/AUTO DIFF AM CDT procedure are i n the results section. COMPREHENSIVE METABOLIC STAT 05/06/2020 8:51 Anal cancer ( HCC) Results for this PANEL AM CDT procedure are i n the results section. CARCINOEMBRYONIC ANTIGEN STAT 05/06/2020 8:51 Anal cancer (HCC) Results for this (CEA) AM CDT procedure are i n the results section. PET CT SKULL BASE TO MID Routine 05/01/2020 11:08 Anal cancer (HCC) Results for this THIGH AM CDT procedure are i n the results section. POC GLUCOSE Routine 05/01/2020 9:53 Results for this AM CDT procedure are i n the results section. CARCINOEMBRYONIC ANTIGEN Routine 04/15/2020 9:29 Anal cancer (HCC) Results for this (CEA) AM CDT procedure are i n the results section. HC COMPLETE BLD COUNT STAT 04/15/2020 8:58 Anal cancer (HC C) Results for this W/AUTO DIFF AM CDT procedure are i n the results section. ESTIMATED GFR STAT 04/15/2020 8:39 Results fo r this AM CDT procedure are i n the results section. MAGNESIUM LEVEL STAT 04/15/2020 8:39 Anal cancer (HCC) Res ults for this AM CDT procedure are i n the results section. COMPREHENSIVE METABOLIC STAT 04/15/2020 8:39 Anal cancer ( HCC) Results for this PANEL AM CDT procedure are i n the results section. CARCINOEMBRYONIC ANTIGEN Routine 03/25/2020 8:41 Anal cancer (HCC) Results for this (CEA) AM CDT procedure are i n the results section. HC COMPLETE BLD COUNT STAT 03/25/2020 8:21 Anal cancer (HC C) Results for this W/AUTO DIFF AM CDT procedure are i n the results section. ESTIMATED GFR STAT 03/25/2020 8:09 Results fo r this AM CDT procedure are i n the results section. MAGNESIUM LEVEL STAT 03/25/2020 8:09 Anal cancer (HCC) Res ults for this AM CDT procedure are i n the results section. COMPREHENSIVE METABOLIC STAT 03/25/2020 8:09 Anal cancer ( HCC) Results for this PANEL AM CDT procedure are i n the results section. MRI ABDOMEN W WO Routine 03/11/2020 9:10 Anal cancer (HCC) Re sults for this CONTRAST AM CDT procedure are i n the results section. CARCINOEMBRYONIC ANTIGEN Routine 03/04/2020 9:37 Anal cancer (HCC) Results for this (CEA) AM CDT procedure are i n the results section. ESTIMATED GFR STAT 03/04/2020 9:20 Results fo r this AM CDT procedure are i n the results section. MAGNESIUM LEVEL STAT 03/04/2020 9:20 Anal cancer (HCC) Res ults for this AM CDT procedure are i n the results section. HC COMPLETE BLD COUNT STAT 03/04/2020 9:20 Anal cancer (HC C) Results for this W/AUTO DIFF AM CDT procedure are i n the results section. COMPREHENSIVE METABOLIC STAT 03/04/2020 9:20 Anal cancer ( HCC) Results for this PANEL AM CDT procedure are i n the results section. PET CT SKULL BASE TO MID Routine 02/28/2020 9:55 Anal cancer (HCC) Results for this THIGH AM CDT procedure are i n the results section. POC GLUCOSE Routine 02/28/2020 8:27 Results for this AM CDT procedure are i n the results section. ESTIMATED GFR STAT 02/12/2020 9:20 Results fo r this AM CDT procedure are i n the results section. MAGNESIUM LEVEL STAT 02/12/2020 9:20 Anal cancer (HCC) Res ults for this AM CDT procedure are i n the results section. HC COMPLETE BLD COUNT STAT 02/12/2020 9:20 Anal cancer (HC C) Results for this W/AUTO DIFF AM CDT procedure are i n the results section. COMPREHENSIVE METABOLIC STAT 02/12/2020 9:20 Anal cancer ( HCC) Results for this PANEL AM CDT procedure are i n the results section. CARCINOEMBRYONIC ANTIGEN STAT 02/12/2020 8:46 Anal cancer (HCC) Results for this (CEA) AM CDT procedure are i n the results section. BIOPSY VULVA Routine 02/12/2020 [place] BIOPSY Routine 02/05/2020 11:00 Vulvar mass Results for this VULVA/PERINEUM,ONE LESN AM CDT proc edure are in the results section. VULVAR BIOPSY Routine 02/05/2020 12:00 Vulvar mass Results fo r this AM CDT procedure are i n the results section. SMEAR REVIEW STAT 01/22/2020 9:50 Results for this AM [employer] procedure are i n the results section. ESTIMATED GFR STAT 01/22/2020 9:50 Results fo r this AM [employer] procedure are i n the results section. MAGNESIUM LEVEL STAT 01/22/2020 9:50 Anal cancer (HCC) Res ults for this AM [employer] procedure are i n the results section. HC COMPLETE BLD COUNT STAT 01/22/2020 9:50 Anal cancer (HC C) Results for this W/AUTO DIFF AM [employer] procedure are i n the results section. COMPREHENSIVE METABOLIC STAT 01/22/2020 9:50 Anal cancer ( HCC) Results for this PANEL AM [employer] procedure are i n the results section. SMEAR REVIEW STAT 01/02/2020 9:45 Results for this AM [employer] procedure are i n the results section. ESTIMATED GFR STAT 01/02/2020 9:45 Results fo r this AM [employer] procedure are i n the results section. MAGNESIUM LEVEL STAT 01/02/2020 9:45 Anal cancer (HCC) Res ults for this AM [employer] procedure are i n the results section. HC COMPLETE BLD COUNT STAT 01/02/2020 9:45 Anal cancer (HC C) Results for this W/AUTO DIFF AM [employer] procedure are i n the results section. COMPREHENSIVE METABOLIC STAT 01/02/2020 9:45 Anal cancer ( HCC) Results for this PANEL AM [employer] procedure are i n the results section. PET CT SKULL BASE TO MID Routine 12/27/2019 11:21 Anal cancer (HCC) Results for this THIGH AM [employer] procedure are i n the results section. POC GLUCOSE Routine 12/27/2019 10:05 Results for this AM [employer] procedure are i n the results section. MANUAL DIFFERENTIAL STAT 12/22/2019 10:10 Resu lts for this AM [employer] procedure are i n the results section. ESTIMATED GFR STAT 12/22/2019 10:10 Results fo r this AM [employer] procedure are i n the results section. MAGNESIUM LEVEL STAT 12/22/2019 10:10 Anal cancer (HCC) Res ults for this AM [employer] procedure are i n the results section. CBC WITH PLATELET AND STAT 12/22/2019 10:10 Anal cancer (HC C) Results for this DIFFERENTIAL AM [employer] procedure are i n the results section. COMPREHENSIVE METABOLIC STAT 12/22/2019 10:10 Anal cancer ( HCC) Results for this PANEL AM [employer] procedure are i n the results section. CARCINOEMBRYONIC ANTIGEN STAT 12/22/2019 9:59 Anal cancer (HCC) Results for this (CEA) AM [employer] procedure are i n the results section. MANUAL DIFFERENTIAL STAT 12/15/2019 10:12 Resu lts for this AM [employer] procedure are i n the results section. ESTIMATED GFR STAT 12/15/2019 10:12 Results fo r this AM [employer] procedure are i n the results section. MAGNESIUM LEVEL STAT 12/15/2019 10:12 Anal cancer (HCC) Res ults for this AM [employer] procedure are i n the results section. CBC WITH PLATELET AND STAT 12/15/2019 10:12 Anal cancer (HC C) Results for this DIFFERENTIAL AM [employer] procedure are i n the results section. COMPREHENSIVE METABOLIC STAT 12/15/2019 10:12 Anal cancer ( HCC) Results for this PANEL AM [employer] procedure are i n the results section. CARCINOEMBRYONIC ANTIGEN STAT 12/15/2019 10:12 Anal cancer (HCC) Results for this (CEA) AM [employer] procedure are i n the results section. ESTIMATED GFR STAT 11/24/2019 9:20 Results fo r this AM [employer] procedure are i n the results section. MAGNESIUM LEVEL STAT 11/24/2019 9:20 Anal cancer (HCC) Res ults for this AM [employer] procedure are i n the results section. COMPREHENSIVE METABOLIC STAT 11/24/2019 9:20 Anal cancer ( HCC) Results for this PANEL AM [employer] procedure are i n the results section. HC COMPLETE BLD COUNT STAT 11/24/2019 9:05 Anal cancer (HC C) Results for this W/AUTO DIFF AM [employer] procedure are i n the results section. CARCINOEMBRYONIC ANTIGEN STAT 11/24/2019 9:05 Anal cancer (HCC) Results for this (CEA) AM [employer] procedure are i n the results section. MANUAL DIFFERENTIAL STAT 11/03/2019 9:55 Resu lts for this AM [employer] procedure are i n the results section. ESTIMATED GFR STAT 11/03/2019 9:55 Results fo r this AM [employer] procedure are i n the results section. MAGNESIUM LEVEL STAT 11/03/2019 9:55 Anal cancer (HCC) Res ults for this AM [employer] procedure are i n the results section. CBC WITH PLATELET AND STAT 11/03/2019 9:55 Anal cancer (HC C) Results for this DIFFERENTIAL AM [employer] procedure are i n the results section. COMPREHENSIVE METABOLIC STAT 11/03/2019 9:55 Anal cancer ( HCC) Results for this PANEL AM [employer] procedure are i n the results section. CARCINOEMBRYONIC ANTIGEN STAT 11/03/2019 9:44 Anal cancer (HCC) Results for this (CEA) AM [employer] procedure are i n the results section. MISCELLANEOUS REFERRAL Routine 10/24/2019 1:12 R esults for this TEST PM [employer] procedure are i n the results section. SURGICAL PATHOLOGY Routine 10/19/2019 11:43 Resul ts for this REQUEST AM [employer] procedure are i n the results section. SURGICAL PATHOLOGY Routine 10/19/2019 11:43 Resul ts for this REQUEST AM [employer] procedure are i n the results section. SURGICAL PATHOLOGY Routine 10/19/2019 11:43 Resul ts for this REQUEST AM [employer] procedure are i n the results section. SURGICAL PATHOLOGY Routine 10/19/2019 11:43 Resul ts for this REQUEST AM [employer] procedure are i n the results section. CYTOLOGY Routine 10/19/2019 10:00 Results for this (NON-GYNECOLOGICAL) AM [employer] procedur e are in REQUEST the results section. US NEEDLE BIOPSY Routine 10/19/2019 10:00 Anal cancer (H CC) Results for this AM [employer] Lymphadenopathy procedure ar e in the results section. CYTOLOGY Routine 10/19/2019 9:59 Results for this (NON-GYNECOLOGICAL) AM [employer] procedur e are in REQUEST the results section. LDH Routine 09/21/2019 8:01 Anal cancer (HCC) Result s for this AM CDT procedure are i n the results section. CARCINOEMBRYONIC ANTIGEN Routine 09/21/2019 8:01 Anal cancer (HCC) Results for this (CEA) AM CDT procedure are i n the results section. PARTIAL THROMBOPLASTIN Routine 09/21/2019 8:01 Anal cancer (H CC) Results for this TIME (PTT) AM CDT procedure are i n the results section. PROTHROMBIN TIME WITH Routine 09/21/2019 8:01 Anal cancer (HC C) Results for this INR AM CDT procedure are i n the results section. COMPREHENSIVE METABOLIC Routine 09/21/2019 8:01 Anal cancer ( HCC) Results for this PANEL AM CDT procedure are i n the results section. CBC WITH PLATELET AND Routine 09/21/2019 8:01 Anal cancer (HC C) Results for this DIFFERENTIAL AM CDT procedure are i n the results section. PET CT SKULL BASE TO MID Routine 09/14/2019 11:52 Anal cancer (HCC) Results for this THIGH AM CDT procedure are i n the results section. POC GLUCOSE Routine 09/14/2019 10:19 Results for this AM CDT procedure are i n the results section. after 08/20/2019 Results RAD ONC DAILY TREATMENT (08/16/2020 10:39 AM CDT) Pathologist Sig nature Course ID C2 ARIA Course Start Date 2020-07-19 @12:18 ARIA Treatment Elapsed Days 24 ARIA Treatment Dates First Treatment Date: 2020-07-23 @10:55 ARIA Last Treatment Date: 2020-08-16 @10:53 Reference Point ID Brain Boost ARIA Dosage Given to Date 12 ARIA in Gy Session Dosage Given 3 ARIA in Gy Reference Point ID Vulva ARIA Dosage Given to Date 20 ARIA in Gy Session Dosage Given 2.5 ARIA in Gy Plan ID Brain Boost ARIA Fractions Treated to 4 of 5 ARIA Date Prescribed Dose Per 3 ARIA Fraction in Gy Prescription Dose in 1,500 ARIA cGy Plan ID Vulva ARIA Plan Name Vulva ARIA Fractions Treated to 8 of 16 ARIA Date Prescribed Dose Per 2.5 ARIA Fraction in Gy Prescription Dose in 4,000 ARIA cGy Specimen Performing Organization Address [facility] Phon e Number ARIA [address] [place] [address] RAD ONC DAILY TREATMENT (08/15/2020 10:38 AM CDT) Pathologist Sig nature Course ID C2 ARIA Course Start Date 2020-07-19 @12:18 ARIA Treatment Elapsed Days 23 ARIA Treatment Dates First Treatment Date: 2020-07-23 @10:55 ARIA Last Treatment Date: 2020-08-15 @10:52 Reference Point ID Brain Boost ARIA Dosage Given to Date 9 ARIA in Gy Session Dosage Given 3 ARIA in Gy Reference Point ID Vulva ARIA Dosage Given to Date 17.5 ARIA in Gy Session Dosage Given 2.5 ARIA in Gy Plan ID Brain Boost ARIA Fractions Treated to 3 of 5 ARIA Date Prescribed Dose Per 3 ARIA Fraction in Gy Prescription Dose in 1,500 ARIA cGy Plan ID Vulva ARIA Plan Name Vulva ARIA Fractions Treated to 7 of 16 ARIA Date Prescribed Dose Per 2.5 ARIA Fraction in Gy Prescription Dose in 4,000 ARIA cGy Specimen Performing Organization Address [facility] Phon e Number MYLEN[facility] [address] [place] [address] COVID-19 qualitative PCR (08/13/2020 1:04 PM CDT) Interpretation Negative results do not prec lude 2019-nCoV infection and should not be used as the sole basis for treatment or other patient management decisions. Negative results must be combined with clinical observations, patient history, and epidemiological [facility] information. [facility] COVID-19 qualitative Not-Detected Not-Detecte [facility] PCR result d [facility] COVID-19 qualitative See link below for [facility] PCR PDF Lab TAOISM ReportComment: Case HOSPITAL Number: [id number] Specimen Nasopharyngeal swab Performing Organization Address [facility] Phon e Number [facility] DEPARTMENT OF PATHOLOGY AND [address] [place], [place] [address] [address] [place] [phone] [facility] Smear review (08/13/2020 12:34 PM CDT)Only the most recent of5 resultswithin the time period is included. Platelet slide review Mkd decreased (A) [facility] Anisocytosis Moderate [facility] Polychromasia Moderate [facility] Ovalocytes Moderate [facility] Enlarged platelets Moderate (A) [facility] Specimen Performing Organization Address [facility] Phon e Number [facility] DEPARTMENT OF PATHOLOGY AND [address] [place], [place] [address] [address] [place] [phone] [place] [phone] CBC with platelet and differential (08/13/2020 12:34 PM CDT)Only the most recent of16 resultswithin the time period is included. WBC 5.63 4.50 - 11.00 [facility] k/uL [facility] RBC 2.76 (L) 4.20 - 5.50 [facility] m/uL [facility] HGB 8.8 (L) 12.0 - 16.0 [facility] g/dL [facility] HCT 26.6 (L) 37.0 - 47.0 % [facility] MCV 96.4 82.0 - 100.0 [facility] MCH 31.9 27.0 - 34.0 pg [facility] MCHC 33.1 31.0 - 37.0 [facility] RDW - SD 67.7 (H) 37.0 - 55.0 fL [facility] MPV 10.5 8.8 - 13.2 fL [facility] Platelet count 47 (L) 150 - 400 k/uL [facility] Nucleated RBC 0.00 /100 WBC [facility] Neutrophils 85.1 (H) 39.0 - 69.0 % [facility] Lymphocytes 6.7 (L) 25.0 - 45.0 % [facility] Monocytes 6.7 0.0 - 10.0 % [facility] Eosinophils 0.2 0.0 - 5.0 % [facility] Basophils 0.2 0.0 - 1.0 % [facility] Immature granulocytes 1.1 0.0 - 1.0 % [facility] (H)Comment: HOSPITAL "Immature granulocytes" (promyelocytes , myelocytes, metamyelocytes ) Specimen Blood Performing Organization Address [facility] Phon e Number [facility] DEPARTMENT OF PATHOLOGY AND [address] [place], [place] [address] [facility] [place] [phone] [place] [address] RAD ONC DAILY TREATMENT (08/13/2020 10:34 AM CDT) Pathologist Sig nature Course ID C2 ARIA Course Start Date 2020-07-19 @12:18 ARIA Treatment Elapsed Days 21 ARIA Treatment Dates First Treatment Date: 2020-07-23 @10:55 ARIA Last Treatment Date: 2020-08-13 @10:47 Reference Point ID Brain Boost ARIA Dosage Given to Date 6 ARIA in Gy Session Dosage Given 3 ARIA in Gy Reference Point ID Vulva ARIA Dosage Given to Date 15 ARIA in Gy Session Dosage Given 2.5 ARIA in Gy Plan ID Brain Boost ARIA Fractions Treated to 2 of 5 ARIA Date Prescribed Dose Per 3 ARIA Fraction in Gy Prescription Dose in 1,500 ARIA cGy Plan ID Vulva ARIA Plan Name Vulva ARIA Fractions Treated to 6 of 16 ARIA Date Prescribed Dose Per 2.5 ARIA Fraction in Gy Prescription Dose in 4,000 ARIA cGy Specimen Performing Organization Address [facility] Phon e Number ARIA [address] [place] [address] RAD ONC DAILY TREATMENT (08/12/2020 11:02 AM CDT) Pathologist Sig nature Course ID C2 ARIA Course Start Date 2020-07-19 @12:18 ARIA Treatment Elapsed Days 20 ARIA Treatment Dates First Treatment Date: 2020-07-23 @10:55 ARIA Last Treatment Date: 2020-08-12 @11:15 Reference Point ID Brain Boost ARIA Dosage Given to Date 3 ARIA in Gy Session Dosage Given 3 ARIA in Gy Reference Point ID Vulva ARIA Dosage Given to Date 12.5 ARIA in Gy Session Dosage Given 2.5 ARIA in Gy Plan ID Brain Boost ARIA Fractions Treated to 1 of 5 ARIA Date Prescribed Dose Per 3 ARIA Fraction in Gy Prescription Dose in 1,500 ARIA cGy Plan ID Vulva ARIA Plan Name Vulva ARIA Fractions Treated to 5 of 16 ARIA Date Prescribed Dose Per 2.5 ARIA Fraction in Gy Prescription Dose in 4,000 ARIA cGy Specimen Performing Organization Address [facility] e Number [facility]ick [address] [place] [address] RAD ONC DAILY TREATMENT (08/09/2020 10:29 AM CDT) Pathologist Sig nature Course ID C2 ARIA Course Start Date 2020-07-19 @12:18 ARIA Treatment Elapsed Days 17 ARIA Treatment Dates First Treatment Date: 2020-07-23 @10:55 ARIA Last Treatment Date: 2020-08-09 @10:42 Reference Point ID Vulva ARIA Dosage Given to Date 10 ARIA in Gy Session Dosage Given 2.5 ARIA in Gy Reference Point ID WholeBrain-C1 ARIA Dosage Given to Date 30 ARIA in Gy Session Dosage Given 3 ARIA in Gy Plan ID Vulva ARIA Plan Name Vulva ARIA Fractions Treated to 4 of 16 ARIA Date Prescribed Dose Per 2.5 ARIA Fraction in Gy Prescription Dose in 4,000 ARIA cGy Plan ID WholeBrain-C1 ARIA Fractions Treated to 10 of 10 ARIA Date Prescribed Dose Per 3 ARIA Fraction in Gy Prescription Dose in 3,000 ARIA cGy Specimen Performing Organization Address [facility] e Number ARIA [address] [place] [address] RAD ONC DAILY TREATMENT (08/08/2020 10:37 AM CDT) Pathologist Sig nature Course ID C2 ARIA Course Start Date 2020-07-19 @12:18 ARIA Treatment Elapsed Days 16 ARIA Treatment Dates First Treatment Date: 2020-07-23 @10:55 ARIA Last Treatment Date: 2020-08-08 @10:50 Reference Point ID Vulva ARIA Dosage Given to Date 7.5 ARIA in Gy Session Dosage Given 2.5 ARIA in Gy Reference Point ID WholeBrain-C1 ARIA Dosage Given to Date 27 ARIA in Gy Session Dosage Given 3 ARIA in Gy Plan ID Vulva ARIA Plan Name Vulva ARIA Fractions Treated to 3 of 16 ARIA Date Prescribed Dose Per 2.5 ARIA Fraction in Gy Prescription Dose in 4,000 ARIA cGy Plan ID WholeBrain-C1 ARIA Fractions Treated to 9 of 10 ARIA Date Prescribed Dose Per 3 ARIA Fraction in Gy Prescription Dose in 3,000 ARIA cGy Specimen Performing Organization Address [facility] e Number MYLENE [address] [place] [address] RAD ONC DAILY TREATMENT (08/07/2020 10:34 AM CDT) Pathologist Sig nature Course ID C2 ARIA Course Start Date 2020-07-19 @12:18 ARIA Treatment Elapsed Days 15 ARIA Treatment Dates First Treatment Date: 2020-07-23 @10:55 ARIA Last Treatment Date: 2020-08-07 @10:47 Reference Point ID Vulva ARIA Dosage Given to Date 5 ARIA in Gy Session Dosage Given 2.5 ARIA in Gy Reference Point ID WholeBrain-C1 ARIA Dosage Given to Date 24 ARIA in Gy Session Dosage Given 3 ARIA in Gy Plan ID Vulva ARIA Plan Name Vulva ARIA Fractions Treated to 2 of 16 ARIA Date Prescribed Dose Per 2.5 ARIA Fraction in Gy Prescription Dose in 4,000 ARIA cGy Plan ID WholeBrain-C1 ARIA Fractions Treated to 8 of 10 ARIA Date Prescribed Dose Per 3 ARIA Fraction in Gy Prescription Dose in 3,000 ARIA cGy Specimen Performing Organization Address [facility] e Number MY[facility] [address] [place] [address] RAD ONC DAILY TREATMENT (08/06/2020 10:43 AM CDT) Pathologist Sig nature Course ID C2 ARIA Course Start Date 2020-07-19 @12:18 ARIA Treatment Elapsed Days 14 ARIA Treatment Dates First Treatment Date: 2020-07-23 @10:55 ARIA Last Treatment Date: 2020-08-06 @10:56 Reference Point ID Vulva ARIA Dosage Given to Date 2.5 ARIA in Gy Session Dosage Given 2.5 ARIA in Gy Reference Point ID WholeBrain-C1 ARIA Dosage Given to Date 21 ARIA in Gy Session Dosage Given 3 ARIA in Gy Plan ID Vulva ARIA Plan Name Vulva ARIA Fractions Treated to 1 of 16 ARIA Date Prescribed Dose Per 2.5 ARIA Fraction in Gy Prescription Dose in 4,000 ARIA cGy Plan ID WholeBrain-C1 ARIA Fractions Treated to 7 of 10 ARIA Date Prescribed Dose Per 3 ARIA Fraction in Gy Prescription Dose in 3,000 ARIA cGy Specimen Performing Organization Address [facility] Phon e Number MY[facility]E [address] [place] [address] RAD ONC DAILY TREATMENT (08/02/2020 10:11 AM CDT) Pathologist Sig nature Course ID C2 ARIA Course Start Date 2020-07-19 @12:18 ARIA Treatment Elapsed Days 10 ARIA Treatment Dates First Treatment Date: 2020-07-23 @10:55 ARIA Last Treatment Date: 2020-08-02 @10:23 Reference Point ID WholeBrain-C1 ARIA Dosage Given to Date 18 ARIA in Gy Session Dosage Given 3 ARIA in Gy Plan ID WholeBrain-C1 ARIA Fractions Treated to 6 of 10 ARIA Date Prescribed Dose Per 3 ARIA Fraction in Gy Prescription Dose in 3,000 ARIA cGy Specimen Performing Organization Address [facility] Phon e Number [facility] [address] [place] [address] RAD ONC DAILY TREATMENT (08/01/2020 10:37 AM CDT) Pathologist Sig nature Course ID C2 ARIA Course Start Date 2020-07-19 @12:18 ARIA Treatment Elapsed Days 9 ARIA Treatment Dates First Treatment Date: 2020-07-23 @10:55 ARIA Last Treatment Date: 2020-08-01 @10:45 Reference Point ID WholeBrain-C1 ARIA Dosage Given to Date 15 ARIA in Gy Session Dosage Given 3 ARIA in Gy Plan ID WholeBrain-C1 ARIA Fractions Treated to 5 of 10 ARIA Date Prescribed Dose Per 3 ARIA Fraction in Gy Prescription Dose in 3,000 ARIA cGy Specimen Performing Organization Address [facility] Phon e Number ARIDick [address] [place] [address] RAD ONC DAILY TREATMENT (07/31/2020 10:39 AM CDT) Pathologist Sig nature Course ID C2 ARIA Course Start Date 2020-07-19 @12:18 ARIA Treatment Elapsed Days 8 ARIA Treatment Dates First Treatment Date: 2020-07-23 @10:55 ARIA Last Treatment Date: 2020-07-31 @10:51 Reference Point ID WholeBrain-C1 ARIA Dosage Given to Date 12 ARIA in Gy Session Dosage Given 3 ARIA in Gy Plan ID WholeBrain-C1 ARIA Fractions Treated to 4 of 10 ARIA Date Prescribed Dose Per 3 ARIA Fraction in Gy Prescription Dose in 3,000 ARIA cGy Specimen Performing Organization Address [facility] Phon e Number MYLENE [address] [place] [address] RAD ONC DAILY TREATMENT (07/30/2020 10:37 AM CDT) Pathologist Sig nature Course ID C2 ARIA Course Start Date 2020-07-19 @12:18 ARIA Treatment Elapsed Days 7 ARIA Treatment Dates First Treatment Date: 2020-07-23 @10:55 ARIA Last Treatment Date: 2020-07-30 @10:50 Reference Point ID WholeBrain-C1 ARIA Dosage Given to Date 9 ARIA in Gy Session Dosage Given 3 ARIA in Gy Plan ID WholeBrain-C1 ARIA Fractions Treated to 3 of 10 ARIA Date Prescribed Dose Per 3 ARIA Fraction in Gy Prescription Dose in 3,000 ARIA cGy Specimen Performing Organization Address [facility] Phon e Number ARIA [address] [place] [address] RAD ONC DAILY TREATMENT (07/29/2020 10:17 AM CDT) Pathologist Sig nature Course ID C2 ARIA Course Start Date 2020-07-19 @12:18 ARIA Treatment Elapsed Days 6 ARIA Treatment Dates First Treatment Date: 2020-07-23 @10:55 ARIA Last Treatment Date: 2020-07-29 @10:28 Reference Point ID WholeBrain-C1 ARIA Dosage Given to Date 6 ARIA in Gy Session Dosage Given 3 ARIA in Gy Plan ID WholeBrain-C1 ARIA Fractions Treated to 2 of 10 ARIA Date Prescribed Dose Per 3 ARIA Fraction in Gy Prescription Dose in 3,000 ARIA cGy Specimen Performing Organization Address [facility] Phon e Number ARIA [address] [place] [address] RAD ONC COURSE SUMMARY (07/26/2020 4:30 PM CDT) Pathologist Sig nature Course ID C1 ARIA Course Start Date 2020-05-20 @15:11 ARIA Treatment Elapsed Days 10 ARIA Course Intent Unknown ARIA Treatment Dates Course End Date: 2020-07-26 @16:30 JOHAN A First Treatment Date: 2020-05-28 @13:44 Last Treatment Date: 2020-06-07 @10:25 Reference Point ID Liver SBRT. ARIA Dosage Given to Date 45 ARIA in Gy Plan ID Liver SBRT ARIA Plan Name Liver SBRT ARIA Fractions Treated to 5 of 5 ARIA Date Prescribed Dose Per 9 ARIA Fraction in Gy Prescription Dose in 4,500 ARIA cGy Specimen Performing Organization Address [facility]/[place] [facility] Phon [place] Number JOHANA [address] [place] [address] RAD ONC DAILY TREATMENT (07/23/2020 10:44 AM CDT) Pathologist Sig nature Course ID C2 ARIA Course Start Date 2020-07-19 @12:18 ARIA Treatment Elapsed Days 0 ARIA Treatment Dates First Treatment Date: 2020-07-23 @10:55 ARIA Last Treatment Date: 2020-07-23 @10:56 Reference Point ID WholeBrain-C1 ARIA Dosage Given to Date 3 ARIA in Gy Session Dosage Given 3 ARIA in Gy Plan ID WholeBrain-C1 ARIA Fractions Treated to 1 of 10 ARIA Date Prescribed Dose Per 3 ARIA Fraction in Gy Prescription Dose in 3,000 ARIA cGy Specimen Performing Organization Address [facility] e Number JOHANA [address] [place] [address] MRI Brain W Wo Contrast (07/12/2020 4:16 PM CDT) Specimen Narrative Performed At This result has an attachment that is no t available. EXAMINATION: MRI BRAIN W WO CONTRAST HM [facility] CLINICAL HISTORY: C21.0 Malignant neopla sm of anus unspecified, evaluate for metastatic disease COMPARISON: PET scan from July 09 which mentions probable new metastatic disease in the cerebellum. TECHNIQUE: Multiplanar and multisequence MRI imaging of the brain was obtained with and without contrast. FINDINGS: There are multiple enhancing masses thro ughout the cerebellum. There is edema and mass effect on the adjacent brain and ventricle. There is a small rim- enhancing mass in the left posterior midbrain. The re are small enhancing masses in the right thalamus and posterior internal capsule. There ar e multiple small enhancing masses throughout both cerebral hemispheres. There is edema surrounding some of the masses more prominent in the right parietal and left frontal region. There is a large enhancing mass in the p osterior right lower parotid gland region measuring approximately 2 cm in diameter. IMPRESSION: Diffuse metastatic disease throughout th e brain with mass effect and some areas more prominent in the posterior fossa region. Incidental large right parotid gland mass. [facility]-[id number] Procedure Note Hm Interface, Radiology Results Incoming - 07/12/2020 4:27 PM CDT EXAMINATION: MRI BRAIN W WO CONTRAST CLINICAL HISTORY: C21.0 Malignant neopla sm of anus unspecified, evaluate for metastatic disease COMPARISON: PET scan from July 09 which mentions probable new metastatic disease in the cerebellum. TECHNIQUE: Multiplanar and multisequence MRI imaging of the brain was obtained with and without contrast. FINDINGS: There are multiple enhancing masses thro ughout the cerebellum. There is edema and mass effect on the adjacent brain and ventricle. There is a small rim- enhancing mass in the left posterior midbrain. There are small enhancing masses in the right thalamus and posterior internal capsule. There ar e multiple small enhancing masses throughout both cerebral hemispheres. There is edema surrounding some of the masses more prominent in the right parietal and left frontal region. There is a large enhancing mass in the p osterior right lower parotid gland region measuring approximately 2 cm in diameter. IMPRESSION: Diffuse metastatic disease throughout th e brain with mass effect and some areas more prominent in the posterior fossa region. Incidental large right parotid gland mas s. [id number] Performing Organization Address City/State/ZIP Code Phon e Number RADIANT [address] [place] [address] PET/CT Skull Base To Mid Thigh (07/09/2020 10:44 AM CDT)Only the most recent of5 resultswithin the time period is included. Specimen Narrative Performed At EXAMINATION: PET CT SKULL BASE TO MID THIGH [facility] CLINICAL HISTORY: C21.0 Malignant neoplasm of anus u nspecified, restage anal cancer ; RESTAGING COMPARISON: Head CT 05/01/2020, No other more recent imaging TECHNIQUE: The patient received 10-15 mCi 18-FDG intra venously. 1 hour later, PET/CT scanning from the orbits to the mid thig hs was performed. CT scanning was nondiagnostic and used for attenuation correction purposes and to aid in localization of a ny abnormal findings on the PET images. Automated dose ex posure control was utilized. Blood glucose = 124. FINDINGS: Head and Neck Prominent left supraclavicular lymph node has an SUV o f 6.3 (previously 4.7). The brain is incompletely imaged, but abnormal u ptake is present in the cerebellum and possibly adjacent occipital cortex (SUV = 13.3). Chest Hypermetabolic lymph nodes bilaterally in the mediasti num and han have progressed, with uptake in the right hilar node having SUV of 8.6 (previously 5.4). Marked worsening in number, size, an d uptake of bilateral pulmonary nodules, with highes t uptake today in a cluster of contiguous nodules in the left a pex (SUV = 10.7, previously 5.4). No suspicious uptake in the: axillae. Abdomen Large lesion centrally in the liver no longer demonstr ates marked uptake; this is in fact photopenic on the PET images t howard. Uptake is normal in the: spleen, adrenal glands, pancreas, kid neys, stomach. Mild worsening of retroperitoneal lympha denopathy (SUV = 5.3, previously 3.7). Pelvis A few upper normal-sized lymph nodes in the upper pelv is demonstrate mild uptake, highest adjacent to the right upper sacra l ala (SUV = 4.2), a new finding. Osseous Structures New, marked uptake in a lytic lesion in T4 compressive = 13.0). IMPRESSION: 1.Marked worsening of bilateral pulmonary metastatic d isease, with mild worsening of lymphadenopathy in the chest and retroper itoneum, and a new metastasis in T4. 2.Probable new metastatic disease in the cerebellum. C orrelation with MRI is recommended. [facility]-[id number] Procedure Note Interface, Radiology Results Incoming - 07/09/2020 11:42 AM CDT EXAMINATION: PET CT SKULL BASE TO MID THIGH CLINICAL HISTORY: C21.0 Malignant neopla sm of anus unspecified, restage anal cancer ; RESTAGING COMPARISON: Head CT 05/01/2020, No other more recent imaging TECHNIQUE: The patient received 10-15 mC i 18-FDG intravenously. 1 hour later, PET/CT scanning from the orbits to the mid thighs was performed. CT scanning was nondiagnostic and used for attenuation correction purposes and to aid in localization of any abnormal findings on the PET images. Aut omated dose exposure control was utilized. Blood glucose = 124. FINDINGS: Head and Neck Prominent left supraclavicular lymph nod e has an SUV of 6.3 (previously 4.7). The brain is incompletely imaged, but abnormal uptake is present in the cerebellum and possibly adjacent occipital cortex (SUV = 13.3). Chest Hypermetabolic lymph nodes bilaterally i n the mediastinum and han have progressed, with uptake in the right hilar node having SUV of 8.6 (previously 5.4). Marked worsening in number, size, and uptake of bilateral pulmonary nodules, with highes t uptake today in a cluster of contiguous nodules in the left apex (SUV = 10.7, previously 5.4). No suspicious uptake in the: axillae. Abdomen Large lesion centrally in the liver no l onger demonstrates marked uptake; this is in fact photopenic on the PET images today. Uptake is normal in the: spleen, adrenal glands, pancreas, kidneys, stomach. Mild worsening of retroperitoneal lymphadenopathy (SUV = 5.3, previously 3.7). Pelvis A few upper normal-sized lymph nodes in the upper pelvis demonstrate mild uptake, highest adjacent to the right upper sacral ala (SUV = 4.2), a new finding. Osseous Structures New, marked uptake in a lytic lesion in T4 compressive = 13.0). IMPRESSION: 1.Marked worsening of bilateral pulmonar y metastatic disease, with mild worsening of lymphadenopathy in the chest and retroperitoneum, and a new metastasis in T4. 2.Probable new metastatic disease in the cerebellum. Correlation with MRI is recommended. [facility]-[id number] Performing Organization Address City/[facility]/ZIP Code Phon e Number [address] [address] POC glucose (07/09/2020 9:08 AM CDT)Only the most recent of5 resultswithin the time period is included. Pathologist [facility] nature POC glucose 124 (H) 65 - 99 mg/dL [facility] Biomedical Engineering Director Name: Victor Manuel Silveira Device ID: [id number] Chartable: [facility] Notified RN Chartable: No Action Needed Specimen Blood Performing Organization Address City/State/ZIP Code Phon e Number [facility] DEPARTMENT OF PATHOLOGY AND [address] [place] [phone] GENOMIC MEDICINE [address] [address] Estimated GFR (06/27/2020 8:17 AM CDT)Only the most recent of14 resultswithin the time period is included. [facility] Estimated GFR 74 mL/min/1.73 [facility] Comment: m2 HOSPITAL Catergory Units Interpretation G1 >=90 Normal or high G2 60-89 Mildly decreased G3a 45-59 Mildly to moderately decreas ed G3b 30-44 Moderately to severely decre ased G4 15-29 Severely decreased G5 <15 Kidney failure The eGFR was calculated using the Chronic Kidney Disea se Epidemiology Collaboration (CKD-EPI) equation. Interpretation is based on recommendations of the National Kidney Foundation-Kidney Disease Outcomes Ulices lity Initiative (NKF-KDOQI) published in 2014. Specimen Performing Organization Address [facility] Phon e Number [facility] DEPARTMENT OF PATHOLOGY AND [address] [place] [phone] Magnesium level (06/27/2020 8:17 AM CDT)Only the most recent of14 resultswithin the time period is included. Pathologist [facility] Magnesium 1.5 (L) 1.6 - 2.4 mg/dL [facility] L Specimen Serum Performing Organization Address [facility] Phon e Number [facility] DEPARTMENT OF PATHOLOGY AND [address] [place] [phone] Carcinoembryonic antigen (CEA) (06/27/2020 8:17 AM CDT)Only the most recent of 13 resultswithin the time period is included. CEA 4.6 (H) 0.0 - 3.8 [facility] Comment: ng/mL HOSPITAL Reference range for heavy smokers: 0.0 - 5.5 ng/mL The BRITTANY Kamryn 8000 CEA immunoassay was used. Results obtained with different assay methods or kits should not be used interchangeably and may be differen t. Specimen Serum Performing Organization Address [facility] Phon e Number [facility] DEPARTMENT OF PATHOLOGY AND [address] [place] [phone] Comprehensive metabolic panel (06/27/2020 8:17 AM CDT)Only the most recent of15 resultswithin the time period is included. Sodium 139 135 - 148 [facility] mEq/L [facility] Potassium 4.1 3.5 - 5.0 [facility] mEq/L [facility] Chloride 99 98 - 112 [facility] mEq/L [facility] CO2 27 24 - 31 mEq/L [facility] Anion gap 13@ANIO 7 - 15 mEq/L [facility] BUN 24 (H) 8 - 23 mg/dL [facility] Creatinine 0.80 0.50 - 0.90 [facility] mg/dL HOSPITAL Glucose 121 (H) 65 - 99 mg/dL [facility] Calcium 10.2 8.8 - 10.2 [facility] mg/dL [facility] Protein 7.5 6.3 - 8.3 [facility] Comment: g/dL HOSPITAL - [place] 4.6-7.0 g/dL 1 week 4.4-7.6 g/dL 7 months-1year 5.1-7.3 g/dL 1-2 years 5.6-7.5 g/dL >3 years 6.0-8.0 g/dL 18-150 6.3-8.3 g/dL Albumin 3.2 (L) 3.5 - 5.0 [facility] g/dL [facility] A/G ratio 0.7 0.7 - 3.8 [facility] Alkaline phosphatase 91 35 - 104 U/L [facility] AST 52 (H) 10 - 35 U/L [facility] ALT 27 5 - 50 U/L [facility] Total bilirubin 0.4 0.0 - 1.2 [facility] mg/dL HOSPITAL Specimen Serum Performing Organization Address [facility]/State/ZIP Code Phon e Number [facility] DEPARTMENT OF PATHOLOGY AND [address] [place], [place] [phone] 0 GENOMIC MEDICINE [address] [address] Transfuse RBC (06/17/2020 3:49 PM CDT)Only the most recent of2 resultswithin the time period is included.Prepare RBC, 1 Units (06/17/2020 9:48 AM CDT)Only the most recent of2 resultswithin the time period is included. Product name Red Blood Cells [employer] -1, Leukored [facility] Unit number [id number] [facility] Product code [id number] [facility] Dispense status Transfused [facility] Blood expiration date [facility] Blood type code 5100 [facility] Blood type O POSITIVE [facility] Compatibility Compatible [facility] Specimen Performing Organization Address [facility] Phon e Number [facility] DEPARTMENT OF PATHOLOGY AND [address] [place], [place] [address] [place] [phone] [place] [address] Type and screen (06/17/2020 9:48 AM CDT)Only the most recent of2 resultswithin the time period is included. Pathologist Sig nature ABO grouping O [facility] Rh type POS [facility] Antibody screen (gel) NEG [facility] Specimen Blood Performing Organization Address [facility] Phon e Number [facility] DEPARTMENT OF PATHOLOGY AND [address] [place], [place] [address] [facility] [address] [place] [address] RAD ONC DAILY TREATMENT (06/07/2020 10:17 AM CDT) Pathologist Sig nature Course ID C1 ARIA Course Start Date 2020-05-20 @15:11 ARIA Treatment Elapsed Days 10 ARIA Course Intent Unknown ARIA Treatment Dates First Treatment Date: 2020-05-28 @13:44 ARIA Last Treatment Date: 2020-06-07 @10:25 Reference Point ID Liver SBRT. ARIA Dosage Given to Date 45 ARIA in Gy Session Dosage Given 9 ARIA in Gy Plan ID Liver SBRT ARIA Fractions Treated to 5 of 5 ARIA Date Prescribed Dose Per 9 ARIA Fraction in Gy Prescription Dose in 4,500 ARIA cGy Specimen Performing Organization Address [facility] Phon e Number ARIA [address] [place] [address] RAD ONC DAILY TREATMENT (06/05/2020 1:40 PM CDT) Pathologist Sig nature Course ID C1 ARIA Course Start Date 2020-05-20 @15:11 ARIA Treatment Elapsed Days 8 ARIA Course Intent Unknown ARIA Treatment Dates First Treatment Date: 2020-05-28 @13:44 ARIA Last Treatment Date: 2020-06-05 @13:47 Reference Point ID Liver SBRT. ARIA Dosage Given to Date 36 ARIA in Gy Session Dosage Given 9 ARIA in Gy Plan ID Liver SBRT ARIA Fractions Treated to 4 of 5 ARIA Date Prescribed Dose Per 9 ARIA Fraction in Gy Prescription Dose in 4,500 ARIA cGy Specimen Performing Organization Address City/[facility] Phon e Number ARIA [address] [place] [address] RAD ONC DAILY TREATMENT (06/03/2020 1:30 PM CDT) Pathologist Sig nature Course ID C1 ARIA Course Start Date 2020-05-20 @15:11 ARIA Treatment Elapsed Days 6 ARIA Course Intent Unknown ARIA Treatment Dates First Treatment Date: 2020-05-28 @13:44 ARIA Last Treatment Date: 2020-06-03 @13:37 Reference Point ID Liver SBRT. ARIA Dosage Given to Date 27 ARIA in Gy Session Dosage Given 9 ARIA in Gy Plan ID Liver SBRT ARIA Fractions Treated to 3 of 5 ARIA Date Prescribed Dose Per 9 ARIA Fraction in Gy Prescription Dose in 4,500 ARIA cGy Specimen Performing Organization Address [facility] Phon e Number ARIDick [address] [place] [address] RAD ONC DAILY TREATMENT (05/30/2020 1:47 PM CDT) Pathologist Sig nature Course ID C1 ARIA Course Start Date 2020-05-20 @15:11 ARIA Treatment Elapsed Days 2 ARIA Course Intent Unknown ARIA Treatment Dates First Treatment Date: 2020-05-28 @13:44 ARIA Last Treatment Date: 2020-05-30 @13:53 Reference Point ID Liver SBRT. ARIA Dosage Given to Date 18 ARIA in Gy Session Dosage Given 9 ARIA in Gy Plan ID Liver SBRT ARIA Fractions Treated to 2 of 5 ARIA Date Prescribed Dose Per 9 ARIA Fraction in Gy Prescription Dose in 4,500 ARIA cGy Specimen Performing Organization Address [facility] Phon e Number ARIA [address] [place] [address] RAD ONC DAILY TREATMENT (05/28/2020 1:40 PM CDT) Pathologist Sig nature Course ID C1 ARIA Course Start Date 2020-05-20 @15:11 ARIA Treatment Elapsed Days 0 ARIA Course Intent Unknown ARIA Treatment Dates First Treatment Date: 2020-05-28 @13:44 ARIA Last Treatment Date: 2020-05-28 @13:46 Reference Point ID Liver SBRT. ARIA Dosage Given to Date 9 ARIA in Gy Session Dosage Given 9 ARIA in Gy Plan ID Liver SBRT ARIA Fractions Treated to 1 of 5 ARIA Date Prescribed Dose Per 9 ARIA Fraction in Gy Prescription Dose in 4,500 ARIA cGy Specimen Performing Organization Address City/State/ZIP Code Phon e Number ARIA [address] [facility] [place] [address] MRI Abdomen W Wo Contrast (03/11/2020 9:10 AM CDT) Specimen Narrative Performed At This result has an attachment that is no t available. EXAMINATION: MRI ABDOMEN W WO CONTRAST [facility] CLINICAL HISTORY:70 years Female C21. 0 Malignant neoplasm of anus unspecified, evaluate liver mass COMPARISON: PET/CT February 28, 2020, December 27, 2019 TECHNIQUE: Multiplanar, multisequence MR I of the abdomen with and without intravenous gadolinium. FINDINGS: Multiple mildly enlarged retroperitoneal and retrocrural lymph nodes are nonspecific and may change since November 2019. Largest aortocaval lymph node is 12 mm in short axis. Multiple enlarged lymph nodes are also seen in the partly visualized mediastinum. There is a 2.3 cm centrally necrotic mas s posteriorly in segment IVb of the liver consistent with metastatic disease. This is similar to PET/CT of February 28, 2020 and uses December 07, 2019. Gallbladder, pancreas, and spleen unremarkable. No renal or adrenal mass. No free fluid or fluid collection. No suspicious osseous lesion. IMPRESSION: Solitary 2.3 cm hepatic metastatic lesion in segment I Vb. Stable retroperitoneal lymphadenopathy. [facility]-[id number] Procedure Note Interface, Radiology Results Incoming - 03/11/2020 9:35 AM CDT EXAMINATION: MRI ABDOMEN W WO CONTRAST CLINICAL HISTORY:70 years Female C21.0 Malignant neoplasm of anus unspecified, evaluate liver mass COMPARISON: PET/CT February 28, 2020, 2019 TECHNIQUE: Multiplanar, multisequence MR I of the abdomen with and without intravenous gadolinium. FINDINGS: Multiple mildly enlarged retroperitoneal and retrocrural lymph nodes are nonspecific and may change since November 2019. Largest aortocaval lymph node is 12 mm in short axis. Multiple enlarged lymph nodes are also seen in the partly visualized mediastinum. There is a 2.3 cm centrally necrotic mas s posteriorly in segment IVb of the liver consistent with metastatic disease. This is similar to PET/CT of February 28, 2020 and uses December 07, 2019. Gallbladder, pancreas, and spleen unrema rkable. No renal or adrenal mass. No free fluid or fluid collection. No suspicious osseous lesion. IMPRESSION: Solitary 2.3 cm hepatic metastatic lesio n in segment IVb. Stable retroperitoneal lymphadenopathy. [facility]-[id number] Performing Organization Address City/State/ZIP Code Phon e Number [facility] [address] [place] [address] Biopsy vulva (02/12/2020) Narrative Performed At This result has an attachment that is no t available. Biopsy vulva (02/05/2020 11:00 AM CDT) Narrative Performed At Alejandro Murray MD 02/05/2020 12:51 PM Biopsy vulva Date/Time: 02/05/2020 12:50 PM Performed by: Alejandro Murray MD Authorized by: Alejandro Murray MD Procedure Details - Skin Biopsy: Number of lesions treated: 1 Lesion 1: Area prepped and draped in sterile fa shion: yes Body area: anogenital Anogenital location: vulva Initial size (mm): 4 Final defect size (mm): 4 Malignancy: malignancy unknown Sent for pathology: yes Biopsy method: punch biopsy Anesthetic used: local infiltration Complexity: simple Hemostasis: silver nitrate Patient tolerated procedure well: yes Ultrasound guided: no biopsy ultrasound guided Vulvar biopsy (02/05/2020 12:00 AM CDT) Pathologist Sig nature Vulvar biopsy MALIGNANT (A) BIOREF Comment: .. DERMATOPATHOLOGY REPORT .. SURGICAL #: [id number] SPECIMEN SOURCE: Vulva CLINICAL DATA: Provided Diagnosis Code: N90.89 SAMPLE: A. VULVA BIOPSY 9 O'CLOCK DIAGNOSIS: A. 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 SEE NOTE. NOTE: EVALUATION IS LIMITED BY SUBOPTIMAL ORIENTATION OF THE SPECIMEN. IMMUNOSTAINS FOR KI-67 (A [place] OLIFERATION MARKER) AND P16 (A SURROGATE MARKER FOR HIGH -RISK HPV INFECTION) HAVE BEEN REVIEWED. KI-67 AND P 16 ARE POSITIVE IN ATYPICAL SQUAMOUS EPITHELIUM. THE IMMUN OPROFILE IS SUGGESTIVE OF HPV-ASSOCIATED SQUAMOUS CELL C ARCINOMA. IF THIS BIOPSY IS A PART OF A LARGER LESION, TH E FINDINGS IN THIS SPECIMEN MAY NOT BE AIR QUALITY ENGINEER OF T HE ENTIRE LESION. PLEASE CORRELATE WITH CLINICAL CIR CUMSTANCE. MULTIPLE LEVEL SECTIONS HAVE BEEN EXAMINED. GROSS DESCRIPTION: A. RECEIVED IN FORMALIN AND LABELED WITH THE PATIE NT'S NAME, CONSISTS OF ONE PIECE OF SOFT WOODALL TISSUE EPIFANIO SURING 0.4 X 0.4 X 0.3 CM. THE SPECIMEN IS ENTIRELY SUB MITTED IN ONE CASSETTE. COMMENT: ANTIBODIES WERE PERFORMED A DOUBLE STAIN. A POSITIVE CONTROL FOR EACH ANTIBODY HAS BEEN REVIEWED AND ACCEPTED , 2 IHC STAIN(S) WERE PERFORMED. THIS CASE HAS BEEN PEER-REVIEWED. ELDA ESTRADA M.D. BOARD CERTIFIED DERMATOP ATHOLOGIST, EX. [id number] This report was electron ically signed. FINAL REPOR T Specimen Performing Organization Address City/[facility]/[place]IP [facility] [place] [facility] Manual differential (12/22/2019 10:10 AM ASSISTANT WOMEN'S ROWING COACH)Only the most recent of3 results within the time period is included. Pathologist [facility] Manual differential PERFORMED [facility] Neutrophils 19.0 (L) 39.0 - 69.0 % [facility] Lymphocytes 31.0 25.0 - 45.0 % [facility] Monocytes 50.0 (H) 0.0 - 10.0 % [facility] Eosinophils 0.0 0.0 - 5.0 % [facility] Basophils 0.0 0.0 - 1.0 % [facility] Metamyelocytes 0 % [facility] Promyelocytes 0 % [facility] Platelet slide review Decreased (A) [facility] Ovalocytes Moderate [facility] Specimen Performing Organization Address [facility] Phon e Number [facility] DEPARTMENT OF PATHOLOGY AND [address] [place] [phone] GENOMIC MEDICINE [facility] [address] [place] [phone] Miscellaneous referral test (10/24/2019 1:12 PM ASSISTANT WOMEN'S ROWING COACH) Misc test name Breast Cancer 76 Gene SHOWN ABOVE SomaticComment: This order is for a Breat Cancer 76 Gene Somatic Mutation Test Misc test result see note SHOWN ABOVE Comment: Miscellaneous ordered for tracking purposes only, all billing and reporting will be performed by [facility] Specimen Performing Organization Address City/[facility] Phon e Number [facility] DEPARTMENT OF PATHOLOGY AND [address] [place] [phone] GENOMIC MEDICINE SHOWN ABOVE Surgical pathology request (10/19/2019 11:43 AM ASSISTANT WOMEN'S ROWING COACH)Only the most recent of4 resultswithin the time period is included. [facility] DEPARTMENT OF PATHOLOGY AND GENOMIC MEDICINE Surgical pathology See link below for [facility] DEPARTMENT O F report PDF Lab Report PATHOLOGY AND GENOMIC MEDICINE Result status This is Supplemental [facility] DEPARTMENT OF Report for PATHOLOGY AND [id number] GENOMIC MEDICINE Specimen Performing Organization Address City/State/ZIP Code Phon e Number [facility] DEPARTMENT OF PATHOLOGY AND [address] [place], [place] [phone] GENOMIC MEDICINE US Needle Biopsy (10/19/2019 10:00 AM ASSISTANT WOMEN'S ROWING COACH) Specimen Narrative Performed At EXAMINATION: US NEEDLE BIOPSY RADIANT CLINICAL HISTORY: C21.0 Malignant neoplasm of anus unspecified, R59.1 Generalized enlarged lymph nodes, evaluate for m etastatic anal cancer vs lymphoma vs other TECHNIQUE: The risks, benefits, and alternatives were discussed w ith the patient and written informed consent was obtaine d. A site for needle injury was selected and the skin was prepped and draped in the usual sterile fashion. After local admin istration of 1% buffered lidocaine, a tiny dermatotomy was made. Using ultrasound guidance, serial 18-gauge core samples w ere obtained. The specimens were reviewed with pathology a nd were deemed adequate. The patient was discharged to the radiology recovery area for monitoring prior to discharge. They have been instruct ed to follow-up with for the results of the biopsy. Conscious sedation: None EBL: None. Complications: None. Assistants: None. IMPRESSION: Successful ultrasound-guided left suprac lavicular lymph node biopsy [facility]-[id number] Procedure Note Hm Interface, Radiology Results Incoming - 10/19/2019 3:30 PM ASSISTANT WOMEN'S ROWING COACH EXAMINATION: US NEEDLE BIOPSY CLINICAL HISTORY: C21.0 Malignant neopl asm of anus unspecified, R59.1 Generalized enlarged lymph nodes, evaluate for metastatic anal cancer vs lymphoma vs other TECHNIQUE: The risks, benefits, and alternatives we re discussed with the patient and written informed consent was obtained. A site for needle injury was selected an d the skin was prepped and draped in the usual sterile fashion. After local administration of 1% buffered lidocaine, a tiny dermatotomy was made. Using ultrasound guidance, serial 18-gauge core samples were obtained. The specimens were reviewed wi pathology and were deemed adequate. The patient was discharged to the radiology recovery area for monitoring prior to discharge. They have been instructed to follow-up with for the results of the biopsy. Conscious sedation: None EBL: None. Complications: None. Assistants: None. 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 [facility] DEPARTMENT OF PATHOLOGY AND GENOMIC MEDICINE Cytology See link below [facility] DEPARTMENT OF (non-gynecological) for PDF Lab PATHOLOGY AND report Report GENOMIC MEDICINE Result status This is Final [facility] DEPARTMENT OF Report for PATHOLOGY AND [id number] GENOMIC MEDICINE Specimen Performing Organization Address City/[facility] Code Phon e Number [facility] DEPARTMENT OF PATHOLOGY AND [address] [place], [place] [phone] GENOMIC MEDICINE Partial thromboplastin time, activated (09/21/2019 8:01 AM CDT) PTT 30 22 - 34 sec [facility] Comment: [employer] This test has not been validated for monitoring unfractionated heparin therapy. For testing that is validated for this type of therapy, please refer to the Heparin Anti-Xa assay (test code 83994). For additional information, please refer to http://education.Crambu/faq/UXG913 (This link is being provided for informational/educational purposes only.) Specimen Blood Narrative Performed At FASTING:NO [facility] FASTING: NO Resulting Agency Comment Performing Organization Information: Site ID: [id number] Name: [facility] Address: [address] [place] [phone] Director: Eliecer Samuels Performing Organization Address City/[facility]/ZIP Code Phon e Number [facility] [place] [phone] Prothrombin time with INR (09/21/2019 8:01 AM CDT) INR 1.0 [facility] Comment: [employer] Reference Range 0.9-1.1 Moderate-intensity Warfarin Therapy 2.0-3.0 Higher-intensity Warfarin Therapy 3.0-4.0 Prothrombin time 10.4 9.0 - 11.5 [facility] Comment: tejinder FLORES For more information on this test, go to: http://education.vpod.tv/faq/LNI243 Specimen Blood Narrative Performed At FASTING:NO [facility] FASTING: NO Resulting Agency Comment Performing Organization Information: Site ID: [id number] Name: [facility] Address: [address] [place], [place] [id number] Director: Eliecer Samuels Performing Organization Address [facility] Phon e Number [place] [address] LDH (09/21/2019 8:01 AM CDT) Pathologist [facility] nature LDH [phone] 250 U/L [facility] [employer] Specimen Blood Narrative Performed At FASTING:NO [facility] FASTING: NO Resulting Agency Comment Performing Organization Information: Site ID: [id number] Name: [facility] Address: [address] [place] [address] Director: Eliecer Samuels Performing Organization Address [facility] Phon [place] [address] after 08/20/2019 Insurance Payer Benefit Plan / Subscriber ID Effective Dates Phone Addre ss Type Group HUMANA MEDICARE HUMANA HMO GOLD [id number] 2020-Present HMO PLUS MEDICARE MEDICAID MEDICAID [id number] 2019-Present Med icaid Advance Directives For more information, please contact: [phone] Type Date Recorded 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
--- OUTSIDE RECORDS SUMMARY | 2020-08-20 15:59 | XMS REPORT | Continuity of Care Document ---
:1950 Author Organization [facility] t Address [address] [place] [address] Dr. Cav[address] [place] [address] Care Team Providers Name Role Phone Jorge Harpreet MANDUJANO Primary Care Physician Ary MORTON Attending Clinician Provider Attending Clinician Unavailable Kobe Ho MD Attending Clinician Servando REDDY Attending Clinician Unavailable Marlon Attending Clinician Unavailable Vincent RN Attending Clinician Unavailable Melissa MORTON, SJuan F Attending Clinician Harry MORTON Attending Clinician Tadeo REDDY Attending Clinician Unavailable Serge REDDY Attending Clinician Unavailable Hannah Mohamud MD Attending Clinician Logan Terrazas RP Attending Clinician Unavailable Nik [facility] Attending Clinician Unavailable Thomas RP Attending Clinician Unavailable Abdirizak RN Attending Clinician Unavailable Cirilo REDDY, M Attending Clinician Unavailable Samson REDDY, Calin Attending Clinician Unavailable John RN Attending Clinician Unavailable Sujit SANCHEZRay Attending Clinician Unavailable Shanika SANCHEZAna Attending Clinician Unavailable Payers Payer Name Policy Type Policy Effective Date Expiration Date Sour ce Number HUMANA [id number] 2020 [place] MEDICAREHUMANA HMO 00:00:00 Method ist GOLD PLUS [id number]-PresentHMO MEDICAIDMEDICAIDxxxx [id number] 2019 [place] [id number] 2019-Presen 00:00:00 Meth odist tMedicaid Problems Condition Condition Condition Status Onset Resolution Last Treating Co mments Source Name Details Category Date Date Treatment Clinician Date Fever and Fever and Disease Active Jerri ston chills chills 9-15 [facility] 00:00: st 00 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 00: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 00 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 00:00: st of brain of brain 00 Secondary Secondary Disease Active Jerri ston malignant malignant 6-15 Meth reshma neoplasm neoplasm 00:00: st of liver of liver 00 Anemia Anemia Disease Active [place] 6-08 Methodi 00:00: st 00 Encounter Encounter Disease Active 2018-11 Jerri ston for for 0-17 Methodi central central 00:00: st line care line care 00 Chemothera Chemothera Disease Active H franco py induced py induced 7- Ne thodi neutropeni neutropeni 00:00: st a a 00 Dehydratio Dehydratio Disease Active H franco n n 6-28 Methodi 00:00: st 00 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 6-27 Methodi 00:00: st 00 Allergies, Adverse Reactions, Alerts Allergy Allergy Status Severity Reaction(s) Onset Inactive Treating Comm ents Source Name Type Date Date Clinician Adhesive Propensi Active Other (See Tegaderm [place] Tape-Mary Lou ty to Comments) 7-15 for Metho di icones adverse 00:00: [place] st reaction 00 th causes s to skin drug tears Family History Family Member Diagnosis Comments Start Date Stop Date Source Natural son Diabetes [place] Metho dist Natural son Heart disease [facility] thodist Social History Social Habit Start Date Stop Date Quantity Comments Source History [facility] Meth odist Alcohol Std Drinks History [facility] Meth odist Alcohol Binge Sex Assigned At [facility] ethodist Exposure to Not sure [place] Metho dist SARS-CoV-2 (event) Tobacco use and 2020-07-15 2020-07-15 Never used [facility] ethodist exposure 00:00:00 00:00:00 Alcohol intake 2020-07-15 2020-07-15 Lifetime [facility] thodist 00:00:00 00:00:00 non-drinker (finding) History [facility] 2019-05-02 2019-05-02 1 [place] Meth odist Alcohol Frequency 00:00:00 00:00:00 Smoking Status Start Date Stop Date Source Never smoker Daniel Stevensonis nic Medications Ordered Filled Start Stop Current Ordering Indication Dosage Frequency Signature Comments Components Source Medication Medication Date Date Medication? Clinician (SIG) Name Name atenolol 2020-0 Yes 50mg QD Take 50 mg Jerri ston (TENORMIN) 8-17 by mouth Metho di 50 MG 14:21: daily. st tablet 25 enalapril 2020-0 Yes 20mg QD Take 20 mg [place] (VASOTEC) 8-17 by mouth Method i 20 MG 14:21: daily. st tablet 25 pravastatin 2020-0 Yes 20mg QD Take 20 mg Sanchez (PRAVACHOL) 8-17 by mouth Meth reshma 20 MG 14:21: nightly. st tablet 25 potassium 2020-0 Yes 20meq QD Take 20 [place] chloride 8-17 mEq by Methodi (KLOR-CON) 14:21: mouth st 20 mEq 25 daily. packet albuterol 2020-0 Yes 2.5mg Q6H Take 2.5 Jerri ston (ACCUNEB) 8-17 mg by Methodi 2.5 mg /3 14:21: nebulizati st mL (0.083 25 on every 6 %) (six) nebulizer hours as solution needed for wheezing. furosemide 2020-0 Yes 40mg QD Take 40 mg [place] (LASIX) 40 8-17 by mouth Metho di mg tablet 14:21: daily. st 25 iron 2020-0 Yes 1{capsu QD Take 1 Sanchez fum/folic 8-17 le} capsule by Meth reshma acid/mv,min 14:21: mouth st 15 25 daily. (HEMOCYTE-P RAFAEL ORAL) omeprazole 2020-0 Yes 40mg QD Take 40 mg [place] (PriLOSEC) 8-17 by mouth Metho di 40 MG 14:21: daily. st capsule 25 loperamide 2020-0 Yes 2mg Q.25D Take 2 mg [place] (IMODIUM) 2 8-17 by mouth 4 Me thodi mg capsule 14:21: (four) st 25 times a day as needed for diarrhea. HYDROcodone 2020-0 2020- No acute pain 1{tbl} Q6H Take 1 Sanchez -acetaminop 8-16 08-16 tablet by Me thodi hen (NORCO) 22:14: 00:[address] 7.5-325 mg 33 :00 every 6 per tablet (six) hours as needed for moderate pain .Acute Pain. dexamethaso 2019-0 2020- No 4mg [id number] Take 1 Sanchez ne 813 09-02 [id number] tablet (4 Met hodi (DECADRON) 00:00: 23:59 3D mg total) s t 4 MG tablet 00 :00 by mouth 3 (three) times a day for 20 days. gabapentin 2020-0 Yes 600mg Q.5D Take 2 [place] (NEURONTIN) 7-30 capsules Meth reshma 300 mg 00:00: ([address] capsule 00 total) by mouth 2 (two) times a day. magnesium 2019-0 2020- No Hypokalemia 1g Sanchez sulfate 720 07-20 Methodi 1g/100mL 12:45: 15:40 st D5W IVPB 00 :00 (premix) Hemocyte-Pl 2020-0 Yes TK ONE C [place] us 106 mg 7-11 PO D Methodi iron- 1 mg 00:00: st capsule 00 HYDROcodone 2019-0 2020- No [place] -acetaminop 7-04 08-16 Methodi hen (NORCO) 00:00: 00:00 st 10-325 mg 00 :00 per tablet potassium 2020-0 Yes Sanchez chloride 20 6-29 Methodi mEq tablet 00:00: st extended 00 release gabapentin 2020-0 2020- No 300mg Q.5D Take 1 Jerri ston (NEURONTIN) 6-29 07-30 capsule Meth reshma 300 mg 00:00: 00:00 ([address] capsule 00 :00 total) by mouth 2 (two) times a day. ondansetron 2020-0 Yes [place] n (ZOFRAN) 8 6-25 Methodi MG tablet 00:00: st 00 prochlorper 2020-0 Yes Nellie n azine 6-25 Methodi (COMPAZINE) 00:00: st 10 MG 00 tablet traMADoL 2020-0 Yes Daniel (ULTRAM) 50 6-19 Methodi mg tablet 00:00: st 00 SSD 1 % 2020-0 Yes Sanchez cream 6-18 Methodi 00:00: st 00 albuterol 2020-0 Yes Daniel (PROAIR 6-15 Methodi HFA) 90 00:00: st mcg/actuati 00 on inhaler gabapentin 2019- No 300mg Q.5D Take 1 Jerri ston (NEURONTIN) 05-01 capsule Meth reshma 300 mg 00:00: 00:00 ([address] capsule 00 :00 total) by mouth 2 (two) times a day for 30 days. diphenoxyla Yes Nellie alvares te-atropine 04-23 Methodi (LOMOTIL) 00:00: st 2.5-0.025 00 mg per tablet Proctosol Yes Daniel HC 2.5 % 02-18 Methodi rectal 00:00: st cream 00 sulfamethox 2019- No 1{tbl} Q.5D Take 1 [place] azole-trime 12-27 tablet by Ne thodi thoprim 00:00: 23:[address] (BACTRIM 00 :00 (two) DS) 800-160 times a mg per day for 5 tablet days. capecitabin 2018-11 Anal cancer Take 3 Sanchez e (XELODA) 12-24 (HCC) tabs po Meth reshma 500 mg 00:00: 00:[address] chemo 00 :00 days on tablet and 7 days off. Start on the day of each IV chemo infusion capecitabin 2018-11- Take 3 Jerri hall e (XELODA) 12-24 tabs po Metho di 500 mg 00:00: 00:[address] chemo 00 :00 days on tablet and 7 days off. Start on the day of each IV chemo infusion benadryl/li Yes Mouth pain 10mL Q6H Swish and Daniel docaine/maa 830 spit 10 mL Me thodi lox (MAGIC 00:00: every 6 st MOUTHWASH) 00 (six) 1:1:1 hours as suspension needed suspension (mouth pain). Vital Signs Vital Name Observation Time Observation Value Comments Source Body temperature 2020-08-13 11:25:00 38.28 Lexi [place] [facility] Systolic blood 2020-08-13 11:00:00 108 mm[Hg] [place] n [facility] pressure Diastolic blood 2020-08-13 11:00:00 60 mm[Hg] [place] [facility] pressure Heart rate 2020-08-13 11:00:00 103 /min Daniel Stevensonist Respiratory rate 2020-08-13 11:00:00 18 /min Mohan marlon [facility] Body height 2020-08-13 11:00:00 152.4 cm Daniel Devries Body weight 2020-08-13 11:00:00 56.972 kg Daniel Devries BMI 2020-08-13 11:00:00 24.53 kg/m2 Sanchez [facility] Oxygen saturation in 2020-08-13 11:00:00 94 /min Daniel Stevensonist Arterial blood by Pulse oximetry Procedures Procedure Date / Time Performing Clinician Source Performed RAD ONC DAILY TREATMENT 2020-08-16 10:39:25 Provider, Unknown [place] [facility] RAD ONC DAILY TREATMENT 2020-08-15 10:38:37 Provider, Unknown [place] [facility] COVID-19 QUALITATIVE PCR 2020-08-13 13:04:00 Danisha Duarte HC COMPLETE BLD COUNT 2020-08-13 12:34:00 Danisha Duarte W/AUTO DIFF Keke SMEAR REVIEW 2020-08-13 12:34:00 Rafael Ho [facility] thodist RAD ONC DAILY TREATMENT 2020-08-13 10:34:34 Provider, Unknown [place] [facility] RAD ONC DAILY TREATMENT 2020-08-12 11:02:14 Provider, Unknown [place] [facility] RAD ONC DAILY TREATMENT 2020-08-09 10:29:53 Provider, Unknown [place] [facility] RAD ONC DAILY TREATMENT 2020-08-08 10:37:03 Provider, Unknown [place] [facility] RAD ONC DAILY TREATMENT 2020-08-07 10:34:52 Provider, Unknown [place] [facility] RAD ONC DAILY TREATMENT 2020-08-06 10:43:53 Provider, Unknown [place] [facility] RAD ONC DAILY TREATMENT 2020-08-02 10:11:13 Provider, Unknown [place] [facility] RAD ONC DAILY TREATMENT 2020-08-01 10:37:48 Provider, Unknown [place] [facility] RAD ONC DAILY TREATMENT 2020-07-31 10:39:16 Provider, Unknown [place] [facility] RAD ONC DAILY TREATMENT 2020-07-30 10:37:49 Provider, Unknown [place] [facility] RAD ONC DAILY TREATMENT 2020-07-29 10:17:20 Provider, Unknown [place] [facility] RAD ONC COURSE SUMMARY 2020-07-26 16:30:44 Provider, Maurilio Devries RAD ONC DAILY TREATMENT 2020-07-23 10:44:52 Provider, Unknown Lucian Devries MRI BRAIN W WO CONTRAST 2020-07-12 16:16:[address] SKULL BASE TO MID 2020-07-09 10:44:51 Mikki Mcallister THIGH POC GLUCOSE 2020-07-09 09:08:00 Mikki Mcallister Meth odist CARCINOEMBRYONIC ANTIGEN 2020-06-27 08:17:00 Mikki Mcallister (CEA) COMPREHENSIVE METABOLIC 2020-06-27 08:17:00 Mikki Mcallister Advent PANEL HC COMPLETE BLD COUNT 2020-06-27 08:17:00 Mikki Mcallister Advent W/AUTO DIFF MAGNESIUM LEVEL 2020-06-27 08:17:00 Mikki Mcallister Meth odist ESTIMATED GFR 2020-06-27 08:17:00 Mikki Mcallister Meth odist TYPE AND SCREEN 2020-06-17 09:48:00 Mikki Mcallister odist PREPARE RBC 2020-06-17 09:48:00 Mikki Mcallister odist CARCINOEMBRYONIC ANTIGEN 2020-06-17 08:42:00 Mikki Mcallister (CEA) COMPREHENSIVE METABOLIC 2020-06-17 08:42:00 Mikki Mcallister Advent PANEL HC COMPLETE BLD COUNT 2020-06-17 08:42:00 Mikki Mcallister Advent W/AUTO DIFF MAGNESIUM LEVEL 2020-06-17 08:42:00 Mikki Mcallister Meth odist ESTIMATED GFR 2020-06-17 08:42:00 Mikki Mcallister Meth odist SMEAR REVIEW 2020-06-17 08:42:00 Mikki Mcallister Meth odist RAD ONC DAILY TREATMENT 2020-06-07 10:17:53 Provider, Unknown Lucian arora [facility] RAD ONC DAILY TREATMENT 2020-06-05 13:40:15 Provider, Unknown Lucian arora [facility] RAD ONC DAILY TREATMENT 2020-06-03 13:30:33 Provider, Unknown Lucian arora [facility] RAD ONC DAILY TREATMENT 2020-05-30 13:47:10 Provider, Unknown Lucian arora [facility] RAD ONC DAILY TREATMENT 2020-05-28 13:40:34 Provider, Unknown Lucian Devries CARCINOEMBRYONIC ANTIGEN 2020-05-27 08:37:00 Mikki Mcallister (CEA) COMPREHENSIVE METABOLIC 2020-05-27 08:37:00 Mikki Mcallister Advent PANEL HC COMPLETE BLD COUNT 2020-05-27 08:37:00 Mikki Mcallister Advent W/AUTO DIFF MAGNESIUM LEVEL 2020-05-27 08:37:00 Mikki Mcallister odist ESTIMATED GFR 2020-05-27 08:37:00 Mikki Mcallister odgen TRANSFUSE RED BLOOD CELLS 2020-05-06 16:28:10 Mikki Mcallister TYPE AND SCREEN 2020-05-06 10:26:00 Mikki Mcallister PREPARE RBC 2020-05-06 10:26:00 Mikki Mcallister odgen CARCINOEMBRYONIC ANTIGEN 2020-05-06 08:51:00 Mikki Mcallister Advent (CEA) COMPREHENSIVE METABOLIC 2020-05-06 08:51:00 Mikki Mcallister Advent PANEL HC COMPLETE BLD COUNT 2020-05-06 08:51:00 Mikki Mcallister W/AUTO DIFF MAGNESIUM LEVEL 2020-05-06 08:51:00 Mikki Mcallister odist ESTIMATED GFR 2020-05-06 08:51:00 Mikki Mcallister Meth odgen SMEAR REVIEW 2020-05-06 08:51:00 Mikki Mcallister odgen PET CT SKULL BASE TO MID 2020-05-01 11:08:50 Mikki Mcallister THIGH POC GLUCOSE 2020-05-01 09:53:00 Mikki Mcallister odgen CARCINOEMBRYONIC ANTIGEN 2020-04-15 09:29:00 Mikki Mcallister (CEA) HC COMPLETE BLD COUNT 2020-04-15 08:58:00 Mikki Mcallister Advent W/AUTO DIFF COMPREHENSIVE METABOLIC 2020-04-15 08:39:00 Mikki Mcallister Advent PANEL MAGNESIUM LEVEL 2020-04-15 08:39:00 Mikki Mcallister Meth odist ESTIMATED GFR 2020-04-15 08:39:00 Mikki Mcallister odist CARCINOEMBRYONIC ANTIGEN 2020-03-25 08:41:00 Mikki Mcallister Advent (CEA) HC COMPLETE BLD COUNT 2020-03-25 08:21:00 Mikki Mcallister n Advent W/AUTO DIFF COMPREHENSIVE METABOLIC 2020-03-25 08:09:00 Mikki Mcallister Advent PANEL MAGNESIUM LEVEL 2020-03-25 08:09:00 Mikki Mcallister Meth odist ESTIMATED GFR 2020-03-25 08:09:00 Mikki Mcallister odgen MRI ABDOMEN W WO CONTRAST 2020-03-11 09:10:00 Mikki Mcallister [facility] CARCINOEMBRYONIC ANTIGEN 2020-03-04 09:37:00 Mikki Mcallister [facility] (CEA) COMPREHENSIVE METABOLIC 2020-03-04 09:20:00 Mikki Mcallister Advent PANEL HC COMPLETE BLD COUNT 2020-03-04 09:20:00 Mikki Mcallister Advent W/AUTO DIFF MAGNESIUM LEVEL 2020-03-04 09:20:00 Mikki Mcallister odist ESTIMATED GFR 2020-03-04 09:20:00 Mikki Mcallister odgen PET CT SKULL BASE TO MID 2020-02-28 09:55:32 Mikki Mcallister [facility] THIGH POC GLUCOSE 2020-02-28 08:27:00 Mikki Mcallister Meth odist COMPREHENSIVE METABOLIC 2020-02-12 09:20:00 Mikki Mcallister Advent PANEL HC COMPLETE BLD COUNT 2020-02-12 09:20:00 Mikki Mcallister n Advent W/AUTO DIFF MAGNESIUM LEVEL 2020-02-12 09:20:00 Mikki Mcallister Meth odist ESTIMATED GFR 2020-02-12 09:20:00 Mikki Mcallister odgen CARCINOEMBRYONIC ANTIGEN 2020-02-12 08:46:00 Mikki Mcallister [facility] (CEA) BIOPSY VULVA 2020-02-12 00:00:00 Alberto Murray Meth odgen CT BIOPSY 2020-02-05 11:00:00 Alberto Murray Daniel Meth odgen VULVA/PERINEUM,ONE LESN VULVAR BIOPSY 2020-02-05 00:00:00 Alberto Murray Daniel Brady odgen COMPREHENSIVE METABOLIC 2020-01-22 09:50:00 Mikki Mcallister Advent PANEL HC COMPLETE BLD COUNT 2020-01-22 09:50:00 Mikki Mcallister Advent W/AUTO DIFF MAGNESIUM LEVEL 2020-01-22 09:50:00 Mikki Mcallister Meth odist ESTIMATED GFR 2020-01-22 09:50:00 Mikki Mcallister Meth odist SMEAR REVIEW 2020-01-22 09:50:00 Mikki Mcallister Meth odgen COMPREHENSIVE METABOLIC 2020-01-02 09:45:00 Mikki Mcallister Advent PANEL HC COMPLETE BLD COUNT 2020-01-02 09:45:00 Mikki Mcallister Advent W/AUTO DIFF MAGNESIUM LEVEL 2020-01-02 09:45:00 Mikki Mcallister Meth odist ESTIMATED GFR 2020-01-02 09:45:00 Mikki Mcallister Meth odist SMEAR REVIEW 2020-01-02 09:45:00 Mikki Mcallister Meth odgen PET CT SKULL BASE TO MID 2019-12-27 11:21:57 Mikki Mcallister THIGH POC GLUCOSE 2019-12-27 10:05:00 Mikki Mcallister odgen COMPREHENSIVE METABOLIC 2019-12-22 10:10:00 Mikki Mcallister Advent PANEL CBC WITH PLATELET AND 2019-12-22 10:10:00 Mikki Mcallister Advent DIFFERENTIAL MAGNESIUM LEVEL 2019-12-22 10:10:00 Mikki Mcallister Meth odist ESTIMATED GFR 2019-12-22 10:10:00 Mikki Mcallister Meth odist MANUAL DIFFERENTIAL 2019-12-22 10:10:00 Mikki Mcallister CARCINOEMBRYONIC ANTIGEN 2019-12-22 09:59:00 Mikki Mcallister [facility] (CEA) CARCINOEMBRYONIC ANTIGEN 2019-12-15 10:12:00 Mikki Mcallister [facility] (CEA) COMPREHENSIVE METABOLIC 2019-12-15 10:12:00 Mikki Mcallister Advent PANEL CBC WITH PLATELET AND 2019-12-15 10:12:00 Mikki Mcallister DIFFERENTIAL MAGNESIUM LEVEL 2019-12-15 10:12:00 Mikki Mcallister Meth odist ESTIMATED GFR 2019-12-15 10:12:00 Mikki Mcallister Meth odist MANUAL DIFFERENTIAL 2019-12-15 10:12:00 Mikki Mcallister COMPREHENSIVE METABOLIC 2019-11-24 09:20:00 Mikki Mcallister Advent PANEL MAGNESIUM LEVEL 2019-11-24 09:20:00 Mikki Mcallister odist ESTIMATED GFR 2019-11-24 09:20:00 Mikki Mcallister CARCINOEMBRYONIC ANTIGEN 2019-11-24 09:05:00 Mikki Mcallister (CEA) HC COMPLETE BLD COUNT 2019-11-24 09:05:00 Mikki Mcallister W/AUTO DIFF COMPREHENSIVE METABOLIC 2019-11-03 09:55:00 Mikki Mcallister Advent PANEL CBC WITH PLATELET AND 2019-11-03 09:55:00 Mikki Mcallister Advent DIFFERENTIAL MAGNESIUM LEVEL 2019-11-03 09:55:00 Mikki Mcallister odgen ESTIMATED GFR 2019-11-03 09:55:00 Mikki Mcallister odist MANUAL DIFFERENTIAL 2019-11-03 09:55:00 Mikki Mcallister CARCINOEMBRYONIC ANTIGEN 2019-11-03 09:44:00 Mikki Mcallister (CEA) MISCELLANEOUS REFERRAL TEST 2019-10-24 13:12:00 Mikki Mcallister SURGICAL PATHOLOGY REQUEST 2019-10-19 11:43:00 Mikki Mcallister US NEEDLE BIOPSY 2019-10-19 10:00:00 Mikki Mcallister CYTOLOGY 2019-10-19 10:00:00 Mikki Mcallister odgen (NON-GYNECOLOGICAL) REQUEST CYTOLOGY 2019-10-19 09:59:00 Mikki Mcallister odgen (NON-GYNECOLOGICAL) REQUEST CBC WITH PLATELET AND 2019-09-21 08:01:00 Mikki Mcallister DIFFERENTIAL COMPREHENSIVE METABOLIC 2019-09-21 08:01:00 Mikki Mcallister PANEL PROTHROMBIN TIME WITH INR 2019-09-21 08:01:00 Mikki Mcallister PARTIAL THROMBOPLASTIN TIME 2019-09-21 08:01:00 Mikki Mcallister (PTT) CARCINOEMBRYONIC ANTIGEN 2019-09-21 08:01:00 Mikki Mcallister (CEA) LDH 2019-09-21 08:01:[address] SKULL BASE TO MID 2019-09-14 11:52:47 Mikki Mcallister THIGH POC GLUCOSE 2019-09-14 10:19:00 Mikki Mcallister Plan of Care Planned Activity Planned Date Details Comments Source Future Scheduled 2020-07-30 INFLUENZA VACCINE Nellie alvares [facility] Test 00:00:00 [code = INFLUENZA VACCINE] Future Scheduled 2014 65+ PNEUMOCOCCAL Daniel [facility] Test 00:00:00 VACCINE (1 of 1 - PPSV23) [code = 65+ PNEUMOCOCCAL VACCINE (1 of 1 - PPSV23)] Future Scheduled 1999 BREAST CANCER Sanchez Ne thodi Test 00:00:00 SCREENING [code = BREAST CANCER SCREENING] Future Scheduled 1999 COLONOSCOPY SCREENING Lucian Devries Test 00:00:00 [code = COLONOSCOPY SCREENING] Future Scheduled 1999 SHINGLES VACCINES (#1) H franco Devries Test 00:00:00 [code = SHINGLES VACCINES (#1)] Encounters Start End Encounter Admission Attending Care Care Encounter Source Date/Time Date/Time Type Type Clinicians Facility Department ID 2020-08-15 2020-08-15 Outpatient [facility] [id number] 279 [place] 00:00:00 00:00:00 EDKATHY [address] 2020-08-13 2020-08-13 Outpatient [facility] [id number] 795 [place] 00:00:00 00:00:00 EDWARD [address] 2020-08-13 2020-08-13 Outpatient [facility] [id number] 922 [place] 00:00:00 00:00:00 EDWARD [address] 2020-08-13 2020-08-13 Outpatient HO, [facility] [id number] 935 [place] 00:00:00 00:00:00 EDWARD [address] 2020-08-12 2020-08-12 Outpatient HO, [facility] [id number] 963 [place] 00:00:00 00:00:00 EDWARD [address] 2020-08-08 2020-08-08 Outpatient [facility] [id number] 903 [place] 00:00:00 00:00:[address] 2020-08-07 2020-08-07 Outpatient [facility] [id number] 899 [place] 00:00:00 00:00:[address] 2020-08-07 2020-08-07 Outpatient HO, [facility] [id number] 504 [place] 00:00:00 00:00:00 EDWARD [address] 2020-08-07 2020-08-07 Outpatient [facility] [id number] [place] 00:00:00 00:00:[address] 2020-08-07 2020-08-07 Outpatient HO, [facility] [id number] 626 [place] 00:00:00 00:00:00 EDWARD [address] 2020-08-02 2020-08-02 Outpatient [facility] [id number] 786 [place] 00:00:00 00:00:[address] 2020-08-01 2020-08-01 Outpatient [facility] [id number] 786 [place] 00:00:00 00:00:[address] 2020-07-30 2020-07-30 Outpatient [facility] [id number] 786 [place] 00:00:00 00:00:[address] 2020-07-30 2020-07-30 Outpatient HO, [facility] [id number] 795 [place] 00:00:00 00:00:00 EDWARD [address] 2020-07-30 2020-07-30 Outpatient HO, [facility] [id number] 033 [place] 00:00:00 00:00:00 EDWARD [address] 2020-07-30 2020-07-30 Outpatient HO, [facility] [id number] 210 [place] 00:00:00 00:00:00 EDWARD [address] 2020-07-23 2020-07-23 Outpatient MELISSA, BIN [facility] [id number] [place] 00:00:00 00:00:[address] 2020-07-19 2020-07-19 Outpatient NATALIIA [facility] [id number] 652 [place] 00:00:00 00:00:00 EDWARD [address] 2020-07-15 2020-07-15 Outpatient NATALIIA [facility] [id number] [place] 00:00:00 00:00:00 EDWARD [address] 2020-07-15 2020-07-15 Outpatient NATALIIA [facility] [id number] 363 [place] 00:00:00 00:00:00 EDWARD [address] 2020-07-12 2020-07-12 Outpatient ARY, [facility] [id number] 233 [place] 00:00:00 00:00:00 MIKKI [address] 2020-07-11 2020-07-11 Outpatient MCALLISTER, [facility] [id number] 562 [place] 00:00:00 00:00:00 MIKKI [address] 2020-07-11 2020-07-11 Outpatient ARY, [facility] [id number] 212 [place] 00:00:00 00:00:00 MIKKI [address] 2020-07-09 2020-07-09 Outpatient ARY, [facility] [id number] 617 [place] 00:00:00 00:00:00 MIKKI [address] 2020-06-27 2020-06-27 Outpatient ARY [facility] [id number] 931 [place] 00:00:00 00:00:00 MIKKI [address] 2020-06-27 2020-06-27 Outpatient MCALLISTER, [facility] [id number] 962 [place] 00:00:00 00:00:00 MIKKI [address] 2020-06-17 2020-06-17 Outpatient MCALLISTER, [facility] [id number] 516 [place] 00:00:00 00:00:00 MIKKI [address] 2020-06-07 2020-06-07 Outpatient MELISSA, BIN [facility] [id number] [place] 00:00:00 00:00:[address] 2020-06-07 2020-06-07 Outpatient NATALIIA [facility] [id number] 968 [place] 00:00:00 00:00:00 EDWARD [address] 2020-06-05 2020-06-05 Outpatient MELISSA, BIN [facility] [id number] [place] 00:00:00 00:00:[address] 2020-06-03 2020-06-03 Outpatient HO, [facility] [id number] [place] 00:00:00 00:00:00 EDWARD [address] 2020-05-30 2020-05-30 Outpatient FARSHAHZAD, [facility] [id number] 581 [place] 00:00:00 00:00:00 CONRAD [address] 2020-05-29 2020-05-29 Outpatient HO, [facility] [id number] 803 [place] 00:00:00 00:00:00 EDWARD [address] 2020-05-28 2020-05-28 Outpatient MCALLISTER, [facility] [id number] 834 [place] 00:00:00 00:00:00 MIKKI [address] 2020-05-28 2020-05-28 Outpatient [facility] [id number] 581 [place] 00:00:00 00:00:[address] 2020-05-28 2020-05-28 Outpatient HO, [facility] [id number] 803 [place] 00:00:00 00:00:00 EDWARD [address] 2020-05-27 2020-05-27 Outpatient ARY, [facility] [id number] 516 [place] 00:00:00 00:00:00 MIKKI [address] 2020-05-13 2020-05-13 Outpatient HO, [facility] [id number] 502 [place] 00:00:00 00:00:00 EDWARD [address] 2020-05-13 2020-05-13 Outpatient HO, [facility] [id number] 501 [place] 00:00:00 00:00:00 EDWARD [address] 2020-05-13 2020-05-13 Outpatient NATALIIA, [facility] [id number] 501 [place] 00:00:00 00:00:00 EDWARD [address] [facility] 2020-05-13 2020-05-13 Outpatient HO, [facility] [id number] 140 [place] 00:00:00 00:00:00 EDWARD [address] 2020-05-07 2020-05-07 Outpatient MCALLISTER, [facility] [id number] 669 [place] 00:00:00 00:00:00 MIKKI [address] 2020-05-06 2020-05-06 Outpatient MCALLISTER, [facility] [id number] 516 [place] 00:00:00 00:00:00 MIKKI [address] 2020-05-01 2020-05-01 Outpatient MCALLISTER, [facility] [id number] 939 [place] 00:00:00 00:00:00 MIKKI [address] 2020-05-01 2020-05-01 Outpatient MCALLISTER, [facility] [id number] 938 [place] 00:00:00 00:00:00 MIKKI [address] 2020-04-15 2020-04-15 Outpatient MCALLISTER, [facility] [id number] 162 [place] 00:00:00 00:00:00 MIKKI [address] 2020-04-15 2020-04-15 Outpatient MCALLISTER, [facility] [id number] 127 [place] 00:00:00 00:00:00 MIKKI [address] 2020-03-25 2020-03-25 Outpatient MCALLISTER, [facility] [id number] 506 [place] 00:00:00 00:00:00 MIKKI [address] 2020-03-11 2020-03-11 Outpatient MCALLISTER, [facility] [id number] 123 [place] 00:00:00 00:00:00 MIKKI [address] 2020-03-04 2020-03-04 Outpatient MCALLISTER, [facility] [id number] 506 [place] 00:00:00 00:00:00 MIKKI [address] 2020-02-28 2020-02-28 Outpatient MCALLISTER, [facility] [id number] 437 [place] 00:00:00 00:00:00 MIKKI [address] 2020-02-28 2020-02-28 Outpatient MCALLISTER, [facility] [id number] 437 [place] 00:00:00 00:00:00 MIKKI [address] 2020-02-12 2020-02-12 Outpatient MCALLISTER, [facility] [id number] 506 [place] 00:00:00 00:00:00 MIKKI [address] 2020-02-05 2020-02-05 Outpatient HARRY, ALBERTO [facility] [id number] [place] 00:00:00 00:00:[address] 2020-01-22 2020-01-22 Outpatient ARY, [facility] [id number] 506 [place] 00:00:00 00:00:00 MIKKI [address] 2019-12-27 2019-12-27 Outpatient ARY [facility] [id number] 286 [place] 00:00:00 00:00:00 MIKKI [address] 2019-10-19 2019-10-19 Outpatient ARY [facility] [id number] 525 [place] 00:00:00 00:00:00 MIKKI [address] 2019-09-14 2019-09-14 Outpatient ARY, [facility] [id number] 254 [place] 00:00:00 00:00:00 MIKKI [address] Results Test Description Test Time Test Comments Results Result Comments Source RAD ONC DAILY TREATMENT 2020-08-16 10:39:25 Test Item Value Reference Range Interpretation Comme nts Course ID (test code = 5706) C2 Course Start Date (test code = 5707) 2020-07-19 @12:18 Treatment Elapsed Days (test code = 5709) 24 Treatment Dates (test code = 5685) First Treatment Date: 2020-07-23 @10:55Last Treatment Date: 2020-08-16 @10:53 Reference Point ID (test code = 5710) Vulva Dosage Given to Date in Gy (test code = 20 5711) Session Dosage Given in Gy (test code = 2.5 5712) Plan ID (test code = 5713) Vulva Fractions Treated to Date (test code = 8 16 5715) Prescribed Dose Per Fraction in Gy (test 2.5 code = 5716) Prescription Dose in cGy (test code = 4000 5717) Plan Name (test code = 5714) [place] [facility] [id number] 10:38:37 Test Item Value Reference Range Interpretation Comments Course ID (test code = C2 5706) Course Start Date (test 2020-07-19 @12:18 code = 5707) Treatment Elapsed Days 23 (test code = 5709) Treatment Dates (test First Treatment Date: code = 5685) 2020-07-23 @10:55Last Treatment Date: 2020-08-15 @10:52 Reference Point ID (test Vulva code = 5710) Dosage Given to Date in 17.5 Gy (test code = 5711) Session Dosage Given in 2.5 Gy (test code = 5712) Plan ID (test code = Vulva 5713) Fractions Treated to 7 of 16 Date (test code = 5715) Prescribed Dose Per 2.5 Fraction in Gy (test code = 5716) Prescription Dose in cGy 4000 (test code = 5717) Plan Name (test code = Vulva 5714) Daniel MethodistCOVID-19 qualitative [id number] 16:20:18 Test Item Value Reference Range Interpretation Comments Interpretation (test Negative results do code = 5673069) not preclude 2019-nCoV infection and should not be used as the sole basis for treatment or other patient management decisions. Negative results must be combined with clinical observations, patient history, and epidemiological information. COVID-19 qualitative Not-Detected Not-Detected PCR result (test code = 77159-5) COVID-19 qualitative See link below for C ase Number: PCR (test code = PDF Lab Report [id number] 7070) Daniel StevensonistSmear [id number] 13:35:53 Test Item Value Reference Range Interpretation Comments Platelet slide review (test Mkd decreased A code = 19790-6) Anisocytosis (test code = Moderate 702-1) Polychromasia (test code = Moderate 01705-5) Ovalocytes (test code = 774-0) Moderate Enlarged platelets (test code = Moderate A 33495-5) Lab Interpretation (test code = Abnormal 45039-4) [facility] with platelet and [id number] 12:47:55 Test Item Value Reference Range Interpretation Comments WBC (test code = 76197-5) 5.63 4.50- 11.00 k/uL RBC (test code = 54439-9) 2.76 m/uL 4.2-5.5 L HGB (test code = 718-7) 8.8 g/dL 12-16 L HCT (test code = 4544-3) 26.6 % 37-47 L MCV (test code = 787-2) 96.4 fL 82-100 MCH (test code = 785-6) 31.9 pg 27-34 MCHC (test code = 786-4) 33.1 g/dL 31-37 RDW - SD (test code = 67.7 fL 37-55 H 61553-1) MPV (test code = 73018-9) 10.5 fL 8.8-13.2 Platelet count (test code 47 150- 400 k/uL L = 35914-7) Nucleated RBC (test code 0.00 /100 WBC = 98505-6) Neutrophils (test code = 85.1 % 39-69 H 32508-0) Lymphocytes (test code = 6.7 % 25-45 L 60633-8) Monocytes (test code = 6.7 % 0-10 21244-0) Eosinophils (test code = 0.2 % 0-5 31572-1) Basophils (test code = 0.2 % 0-1 74036-8) Immature granulocytes 1.1 % 0-1 H "Immat ure (test code = 88052-0) granul ocytes" (promyelocytes, myelocytes, metamyelocytes) Lab Interpretation (test Abnormal code = 77795-4) [place] [facility] [id number] 10:34:34 Test Item Value Reference Range Interpretation Comments Course ID (test code = C2 5706) Course Start Date (test 2020-07-19 @12:18 code = 5707) Treatment Elapsed Days 21 (test code = 5709) Treatment Dates (test First Treatment Date: code = 5685) 2020-07-23 @10:55Last Treatment Date: 2020-08-13 @10:47 Reference Point ID (test Vulva code = 5710) Dosage Given to Date in 15 Gy (test code = 5711) Session Dosage Given in 2.5 Gy (test code = 5712) Plan ID (test code = Vulva 5713) Fractions Treated to 6 of 16 Date (test code = 5715) Prescribed Dose Per 2.5 Fraction in Gy (test code = 5716) Prescription Dose in cGy 4000 (test code = 5717) Plan Name (test code = Vulva 5714) [place] [facility] [id number] 11:02:14 Test Item Value Reference Range Interpretation Comments Course ID (test code = C2 5706) Course Start Date (test 2020-07-19 @12:18 code = 5707) Treatment Elapsed Days 20 (test code = 5709) Treatment Dates (test First Treatment Date: code = 5685) 2020-07-23 @10:55Last Treatment Date: 2020-08-12 @11:15 Reference Point ID (test Vulva code = 5710) Dosage Given to Date in 12.5 Gy (test code = 5711) Session Dosage Given in 2.5 Gy (test code = 5712) Plan ID (test code = Vulva 5713) Fractions Treated to 5 Date (test code = 5715) Prescribed Dose Per 2.5 Fraction in Gy (test code = 5716) Prescription Dose in cGy 4000 (test code = 5717) Plan Name (test code = Vulva 5714) [place] [facility] [id number] 10:29:53 Test Item Value Reference Range Interpretation Comments Course ID (test code = C2 5706) Course Start Date (test 2020-07-19 @12:18 code = 5707) Treatment Elapsed Days 17 (test code = 5709) Treatment Dates (test First Treatment Date: code = 5685) 2020-07-23 @10:55Last Treatment Date: 2020-08-09 @10:42 Reference Point ID (test WholeBrain-C1 code = 5710) Dosage Given to Date in 30 Gy (test code = 5711) Session Dosage Given in 3 Gy (test code = 5712) Plan ID (test code = WholeBrain-C1 5713) Plan Name (test code = Vulva 5714) Fractions Treated to Date (test code = 5715) Prescribed Dose Per 3 Fraction in Gy (test code = 5716) Prescription Dose in cGy 3000 (test code = 5717) [place] [facility] [id number] 10:37:03 Test Item Value Reference Range Interpretation Comments Course ID (test code = C2 5706) Course Start Date (test 2020-07-19 @12:18 code = 5707) Treatment Elapsed Days 16 (test code = 5709) Treatment Dates (test First Treatment Date: code = 5685) 2020-07-23 @10:55Last Treatment Date: 2020-08-08 @10:50 Reference Point ID (test WholeBrain-C1 code = 5710) Dosage Given to Date in 27 Gy (test code = 5711) Session Dosage Given in 3 Gy (test code = 5712) Plan ID (test code = WholeBrain-C1 5713) Plan Name (test code = Vulva 5714) Fractions Treated to 9 of 10 Date (test code = 5715) Prescribed Dose Per 3 Fraction in Gy (test code = 5716) Prescription Dose in cGy 3000 (test code = 5717) [place] [facility] [id number] 10:34:52 Test Item Value Reference Range Interpretation Comments Course ID (test code = C2 5706) Course Start Date (test 2020-07-19 @12:18 code = 5707) Treatment Elapsed Days 15 (test code = 5709) Treatment Dates (test First Treatment Date: code = 5685) 2020-07-23 @10:55Last Treatment Date: 2020-08-07 @10:47 Reference Point ID (test WholeBrain-C1 code = 5710) Dosage Given to Date in 24 Gy (test code = 5711) Session Dosage Given in 3 Gy (test code = 5712) Plan ID (test code = WholeBrain-C1 5713) Plan Name (test code = Vulva 5714) Fractions Treated to 8 of 10 Date (test code = 5715) Prescribed Dose Per 3 Fraction in Gy (test code = 5716) Prescription Dose in cGy 3000 (test code = 5717) [place] [facility] [id number] 10:43:53 Test Item Value Reference Range Interpretation Comments Course ID (test code = C2 5706) Course Start Date (test 2020-07-19 @12:18 code = 5707) Treatment Elapsed Days 14 (test code = 5709) Treatment Dates (test First Treatment Date: code = 5685) 2020-07-23 @10:55Last Treatment Date: 2020-08-06 @10:56 Reference Point ID (test WholeBrain-C1 code = 5710) Dosage Given to Date in 21 Gy (test code = 5711) Session Dosage Given in 3 Gy (test code = 5712) Plan ID (test code = WholeBrain-C1 5713) Plan Name (test code = Vulva 5714) Fractions Treated to 7 of 10 Date (test code = 5715) Prescribed Dose Per 3 Fraction in Gy (test code = 5716) Prescription Dose in cGy 3000 (test code = 5717) [place] [facility] [id number] 10:11:13 Test Item Value Reference Range Interpretation Comments Course ID (test code = C2 5706) Course Start Date (test 2020-07-19 @12:18 code = 5707) Treatment Elapsed Days 10 (test code = 5709) Treatment Dates (test First Treatment Date: code = 5685) 2020-07-23 @10:55Last Treatment Date: 2020-08-02 @10:23 Reference Point ID (test WholeBrain-C1 code = 5710) Dosage Given to Date in 18 Gy (test code = 5711) Session Dosage Given in 3 Gy (test code = 5712) Plan ID (test code = WholeBrain-C1 5713) Fractions Treated to Date (test code = 5715) Prescribed Dose Per 3 Fraction in Gy (test code = 5716) Prescription Dose in cGy 3000 (test code = 5717) [place] [facility] [id number] 10:37:48 Test Item Value Reference Range Interpretation Comments Course ID (test code = C2 5706) Course Start Date (test 2020-07-19 @12:18 code = 5707) Treatment Elapsed Days 9 (test code = 5709) Treatment Dates (test First Treatment Date: code = 5685) 2020-07-23 @10:55Last Treatment Date: 2020-08-01 @10:45 Reference Point ID (test WholeBrain-C1 code = 5710) Dosage Given to Date in 15 Gy (test code = 5711) Session Dosage Given in 3 Gy (test code = 5712) Plan ID (test code = WholeBrain-C1 5713) Fractions Treated to Date (test code = 5715) Prescribed Dose Per 3 Fraction in Gy (test code = 5716) Prescription Dose in cGy 3000 (test code = 5717) [place] [facility] [id number] 10:39:16 Test Item Value Reference Range Interpretation Comments Course ID (test code = C2 5706) Course Start Date (test 2020-07-19 @12:18 code = 5707) Treatment Elapsed Days 8 (test code = 5709) Treatment Dates (test First Treatment Date: code = 5685) 2020-07-23 @10:55Last Treatment Date: 2020-07-31 @10:51 Reference Point ID (test WholeBrain-C1 code = 5710) Dosage Given to Date in 12 Gy (test code = 5711) Session Dosage Given in 3 Gy (test code = 5712) Plan ID (test code = WholeBrain-C1 5713) Fractions Treated to 4 Date (test code = 5715) Prescribed Dose Per 3 Fraction in Gy (test code = 5716) Prescription Dose in cGy 3000 (test code = 5717) [place] [facility] [id number] 10:37:49 Test Item Value Reference Range Interpretation Comments Course ID (test code = C2 5706) Course Start Date (test 2020-07-19 @12:18 code = 5707) Treatment Elapsed Days 7 (test code = 5709) Treatment Dates (test First Treatment Date: code = 5685) 2020-07-23 @10:55Last Treatment Date: 2020-07-30 @10:50 Reference Point ID (test WholeBrain-C1 code = 5710) Dosage Given to Date in 9 Gy (test code = 5711) Session Dosage Given in 3 Gy (test code = 5712) Plan ID (test code = WholeBrain-C1 5713) Fractions Treated to 3 Date (test code = 5715) Prescribed Dose Per 3 Fraction in Gy (test code = 5716) Prescription Dose in cGy 3000 (test code = 5717) [place] [facility] [id number] 10:17:20 Test Item Value Reference Range Interpretation Comments Course ID (test code = C2 5706) Course Start Date (test 2020-07-19 @12:18 code = 5707) Treatment Elapsed Days 6 (test code = 5709) Treatment Dates (test First Treatment Date: code = 5685) 2020-07-23 @10:55Last Treatment Date: 2020-07-29 @10:28 Reference Point ID (test WholeBrain-C1 code = 5710) Dosage Given to Date in 6 Gy (test code = 5711) Session Dosage Given in 3 Gy (test code = 5712) Plan ID (test code = WholeBrain-C1 5713) Fractions Treated to 2 Date (test code = 5715) Prescribed Dose Per 3 Fraction in Gy (test code = 5716) Prescription Dose in cGy 3000 (test code = 5717) [place] [facility] [id number] 16:30:44 Test Item Value Reference Range Interpretation Comments Course ID (test code = C1 5706) Course Start Date (test 2020-05-20 @15:11 code = 5707) Treatment Elapsed Days 10 (test code = 5709) Course Intent (test code Unknown = 5686) Treatment Dates (test Course End Date: code = 5685) 2020-07-26 @16:30First Treatment Date: 2020-05-28 @13:44Last Treatment Date: 2020-06-07 @10:25 Reference Point ID (test Liver SBRT. code = 5710) Dosage Given to Date in 45 Gy (test code = 5711) Plan ID (test code = Liver SBRT 5713) Plan Name (test code = Liver SBRT 5714) Fractions Treated to 5 of 5 Date (test code = 5715) Prescribed Dose Per 9 Fraction in Gy (test code = 5716) Prescription Dose in cGy 4500 (test code = 5717) [place] [facility] [id number] 10:44:52 Test Item Value Reference Range Interpretation Comments Course ID (test code = C2 5706) Course Start Date (test 2020-07-19 @12:18 code = 5707) Treatment Elapsed Days 0 (test code = 5709) Treatment Dates (test First Treatment Date: code = 5685) 2020-07-23 @10:55Last Treatment Date: 2020-07-23 @10:56 Reference Point ID (test WholeBrain-C1 code = 5710) Dosage Given to Date in 3 Gy (test code = 5711) Session Dosage Given in 3 Gy (test code = 5712) Plan ID (test code = WholeBrain-C1 5713) Fractions Treated to 1 of 10 Date (test code = 5715) Prescribed Dose Per 3 Fraction in Gy (test code = 5716) Prescription Dose in cGy 3000 (test code = 5717) [place] [facility] Wo [id number] 16:24:12Hm Interface, Radiology Results 07/12/2020 4:27 PM CDTEXAMINATION: MRI BRAIN W WO CONTRASTCLINICAL HISTORY: 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 There is edema and mass effect on the adjacent brain and ventricle. There is a small rim-enhancing mass in the left posterior midbrain. There are small enhancing masses in the right thalamus and posterior internal capsule. T here are multiple small enhancing masses throughout both cerebral hemispheres. There is edema surrounding some of the masses more prominent in the right parietal and left frontal region.There is a large enhancing mass in the posterior right lower parotid gland region measuring approximately 2 cm in eleuterio meter.IMPRESSION:Diffuse metastatic disease throughout the brain with mass effect and some areas more prominent in the posterior fossa region.Incidental large right parotid gland mass.[id number] MethodistPET/CT Skull Base To Mid [id number] 11:39:12Hm Interface, Radiology Results 07/09/2020 11:42 AM CDTEXAMINATION: PET CT SKULL BASE TOMID THIGHCLINICAL HISTORY: 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 1 hour later, PET/CT scanning from the orbits to the mid thighs was performed. CT scanning was nondiagnostic and used for attenuation correction purposes and to aid in locali zation of any abnormal findings on the PET images. Automated dose exposure control was utilized. Blood glucose = 124.FINDINGS:Head and NeckProminent left supraclavicular lymph node has an SUV of 6.3 (previously 4.7). The brain is incompletely imaged, but abnormal uptake is present in the cerebellum and possibly adjacent occipital cortex (SUV = 13.3).ChestHypermetabolic lymph nodes bilaterally in the mediastinum and han have progressed, with uptake in the right hilar node having SUV of 8.6 (previously 5.4). Marked worsening in number, size, and uptake of bilateral pulmonary nodules, with highest uptake today in a cluster of contiguous nodules in the left apex (SUV = 10.7, previously 5.4). No suspicious uptake in the: axillae.AbdomenLarge lesion centrally in the liver no longer demonstrates markeduptake; this is in fact photopenic on the PET images today. Uptake is normal in the: spleen, adrenal glands, pancreas, kidneys, stomach. 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 Correlation with MRI is recommended.[id number]-[id number] [facility] [id number] 09:11:42 Test Item Value Reference Range Interpretation Comments POC glucose (test code 124 mg/dL 65-99 H Opera tor Name: Victor Manuel = 92924-9) ValerieDevice I D: [id number] able: [facility] Notified RNChartable: No Action Needed Lab Interpretation Abnormal (test code = 60997-0) Daniel MethodistCarcinoembryonic antigen (CEA)2020-06-27 11:36:06 Test Item Value Reference Range Interpretation Comments CEA (test code = 4.6 ng/mL 0-3.8 H Reference r geoff for 2039-04) heavy smokers: 0.0 - 5.5 ng/mLThe Everlaw Karmyn 8000 CEA immunoassay was used. Results obtaine d with different assay methods or kits should not be used interchangeably and may be differen t. Lab Interpretation Abnormal (test code = 90350-9) [facility] MethodistComprehensive metabolic [id number] 09:15:47 Test Item Value Reference Range Interpretation Comments Sodium (test code = 139 135- 148 mEq/L 2951-2) Potassium (test code = 4.1 3.5- 5.0 mEq/L 2823-3) Chloride (test code = 99 98- 112 mEq/L 5-0) CO2 (test code = 2027-) 27 24- 31 mEq/L Anion gap (test code = 13@ANIO 7- 15 mEq/L 32780-9) BUN (test code = 3094-0) 24 mg/dL 8-23 H Creatinine (test code = 0.80 mg/dL 0.5-0.9 2160-0) Glucose (test code = 121 mg/dL 65-99 H 2345-7) Calcium (test code = 10.2 mg/dL 8.8-10.2 08252-9) Protein (test code = 7.5 g/dL 6.3-8.3 -[place] n 2885-2) 4.6-7.0 g/dL1 week 4.4-7 .6 g/dL7 months-1y ear 5.1-7 .3 g/dL1-2 years 5.6-7 .5 g/dL>3 years 6.0-8 .0 g/lV69-864 6.3-8 .3 g/dL Albumin (test code = 3.2 g/dL 3.5-5 L 1751-7) A/G ratio (test code = 0.7 0.7-3.8 1759-0) Alkaline phosphatase 91 U/L 35-104 (test code = 6768-6) AST (test code = 1920-8) 52 U/L 10-35 H ALT (test code = 1742-6) 27 U/L 5-50 Total bilirubin (test 0.4 mg/dL 0-1.2 code = 1975-2) Lab Interpretation (test Abnormal code = 85781-5) [place] MethodistMagnesium [id number] 09:15:46 Test Item Value Reference Range Interpretation Comments Magnesium (test code = 29341-9) 1.5 mg/dL 1.6-2.4 L Lab Interpretation (test code = Abnormal 77101-9) [place] MethodistEstimated [id number] 09:15:46 Test Item Value Reference Range Interpretation Comments Estimated GFR (test 74 mL/min/1.73 m2 [facility] code = 5488) InterpretationG 1 >=90 Normal or highG2 60-89 Mildly tmvebzrhiU2c 45-59 Mildly to mode rately siwcwqamxJ8q 30-44 Moderately to severely decreasedG4 15-29 Severely decre asedG5 <15 Kidn ey failureThe eGFR was calculated usin g the Chronic Kidney Disease Epidemiology Co llaboration (CKD-EPI) equat ion. Interpretation is based on recommendations of the National Kidney Foundation-Kidn ey Disease Outcomes Qualit y Initiative (NKF-KDOQI) pub lished in 2014. [facility] MethodistPrepare RBC, 1 [id number] 12:32:00 Test Item Value Reference Range Interpretation Comments Product name (test code Red Blood Cells -1, = 25) Leukored Unit number (test code [id number] = [id number]) Product code (test code [id number] = 3092) Dispense status (test Transfused code = 24) Blood expiration date (test code = 302) Blood type code (test 5100 code = 308) Blood type (test code = O POSITIVE 1314) Compatibility (test Compatible code = 6400) [place] MethodistType and [id number] 11:29:00 Test Item Value Reference Range Interpretation Comments ABO grouping (test code = 883-9) O Rh type (test code = 95715-3) POS Antibody screen (gel) (test code = NEG 890-4) [place] [facility] [id number] 10:17:53 Test Item Value Reference Range Interpretation Comments Course ID (test code = C1 5706) Course Start Date (test 2020-05-20 @15:11 code = 5707) Treatment Elapsed Days 10 (test code = 5709) Course Intent (test code Unknown = 5686) Treatment Dates (test First Treatment Date: code = 5685) 2020-05-28 @13:44Last Treatment Date: 2020-06-07 @10:25 Reference Point ID (test Liver SBRT. code = 5710) Dosage Given to Date in 45 Gy (test code = 5711) Session Dosage Given in 9 Gy (test code = 5712) Plan ID (test code = Liver SBRT 5713) Fractions Treated to 5 of 5 Date (test code = 5715) Prescribed Dose Per 9 Fraction in Gy (test code = 5716) Prescription Dose in cGy 4500 (test code = 5717) [place] [facility] [id number] 13:40:15 Test Item Value Reference Range Interpretation Comments Course ID (test code = C1 5706) Course Start Date (test 2020-05-20 @15:11 code = 5707) Treatment Elapsed Days 8 (test code = 5709) Course Intent (test code Unknown = 5686) Treatment Dates (test First Treatment Date: code = 5685) 2020-05-28 @13:44Last Treatment Date: 2020-06-05 @13:47 Reference Point ID (test Liver SBRT. code = 5710) Dosage Given to Date in 36 Gy (test code = 5711) Session Dosage Given in 9 Gy (test code = 5712) Plan ID (test code = Liver SBRT 5713) Fractions Treated to 4 of 5 Date (test code = 5715) Prescribed Dose Per 9 Fraction in Gy (test code = 5716) Prescription Dose in cGy 4500 (test code = 5717) [place] [facility] [id number] 13:30:33 Test Item Value Reference Range Interpretation Comments Course ID (test code = C1 5706) Course Start Date (test 2020-05-20 @15:11 code = 5707) Treatment Elapsed Days 6 (test code = 5709) Course Intent (test code Unknown = 5686) Treatment Dates (test First Treatment Date: code = 5685) 2020-05-28 @13:44Last Treatment Date: 2020-06-03 @13:37 Reference Point ID (test Liver SBRT. code = 5710) Dosage Given to Date in 27 Gy (test code = 5711) Session Dosage Given in 9 Gy (test code = 5712) Plan ID (test code = Liver SBRT 5713) Fractions Treated to 3 of 5 Date (test code = 5715) Prescribed Dose Per 9 Fraction in Gy (test code = 5716) Prescription Dose in cGy 4500 (test code = 5717) [place] [facility] [id number] 13:47:10 Test Item Value Reference Range Interpretation Comments Course ID (test code = C1 5706) Course Start Date (test 2020-05-20 @15:11 code = 5707) Treatment Elapsed Days 2 (test code = 5709) Course Intent (test code Unknown = 5686) Treatment Dates (test First Treatment Date: code = 5685) 2020-05-28 @13:44Last Treatment Date: 2020-05-30 @13:53 Reference Point ID (test Liver SBRT. code = 5710) Dosage Given to Date in 18 Gy (test code = 5711) Session Dosage Given in 9 Gy (test code = 5712) Plan ID (test code = Liver SBRT 5713) Fractions Treated to 2 of 5 Date (test code = 5715) Prescribed Dose Per 9 Fraction in Gy (test code = 5716) Prescription Dose in cGy 4500 (test code = 5717) [place] [facility] [id number] 13:40:34 Test Item Value Reference Range Interpretation Comments Course ID (test code = C1 5706) Course Start Date (test 2020-05-20 @15:11 code = 5707) Treatment Elapsed Days 0 (test code = 5709) Course Intent (test code Unknown = 5686) Treatment Dates (test First Treatment Date: code = 5685) 2020-05-28 @13:44Last Treatment Date: 2020-05-28 @13:46 Reference Point ID (test Liver SBRT. code = 5710) Dosage Given to Date in 9 Gy (test code = 5711) Session Dosage Given in 9 Gy (test code = 5712) Plan ID (test code = Liver SBRT 5713) Fractions Treated to 1 of 5 Date (test code = 5715) Prescribed Dose Per 9 Fraction in Gy (test code = 5716) Prescription Dose in cGy 4500 (test code = 5717) [facility] [id number] 09:32:16Hm Interface, Radiology Results 03/11/2020 9:35 AM CDTEXAMINATION: MRI ABDOMEN W WO CONTRASTCLINICAL HISTORY:70 years Female C21.0 Malignant neoplasm of anus unspecified, evaluate livermassCOMPARISON: PET/CT February 28, 2020, December 27, 2019TECHNIQUE: Multiplanar, multisequence MRI of the abdomen with and without intravenous gadolinium.FINDINGS:Multiple mildly enlarged retroperitonealand retrocrural lymph nodes are nonspecific and may change since November 2019. Largest aortocaval lymph node is 12 mm in short axis. Multiple enlarged lymph nodes are also seen in the partly visualizedmediastinum.There is a 2.3 cm centrally necrotic mass posteriorly in segment IVb of the liver consistent with metastatic disease. This is similar to PET/CT of February 28, 2020 and uses December 07, 2019.Gallbladder, pancreas, and spleen unremarkable.No renal or adrenal mass.No free fluid or fluid collection.No suspicious osseous lesion.IMPRESSION:Solitary 2.3 cm hepatic metastatic lesion in segment IVb.Sta ble retroperitoneal lymphadenopathy.[id number] MethodistVulvar biopsy 2020-02-09 13:19:00 Test Item Value Reference Range Interpretation Comments Vulvar biopsy (test MALIGNANT A code = 6154) .. DERMATOPATHO LOGY REPORT ..SURGIC AL #: [id number] ENT ID: [id number] SOURCE: VulvaCLINICAL D ESHA: Provided Diagno sis Code: N90.89SAM PLE: A. VULVA BIOPSY 9 O'CLOCKDIAGNOSI S: A. 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 SEE NOTE. NOTE: EVALUATI ON IS LIMITED BY SUBO PTIMAL ORIENTATION OF THE SPECIMEN. IMMUNOSTAINS FO R KI-67 (A PROLIFERATIO N MARKER) AND P16 (A SURROGATE MARKE R FOR HIGH-RISK HPV INFECTION) HAVE BEEN REVIEWED. KI-6 7 AND P16 ARE POSITIV E IN ATYPICAL SQU AMOUS EPITHELIUM. TH E IMMUNOPROFILE I S SUGGESTIVE OF HPV-ASSOCIATED SQUAMOUS CELL CARCINOMA. IF THIS BIOPSY IS A PART OF A LARGE R LESION, THE FIN DINGS IN THIS SPE CIMEN MAY NOT BE MOTORCYCLE MECHANIC APPRENTICE OF THE ENTIRE L ESION. PLEASE CORRELAT E WITH CLINICAL CIRCUM STANCE. MULTIPLE LEVEL SECTIONS HAVE B EEN EXAMINED.GROSS DESCRIPTION: A. RECEIVED IN FOR ANNABELLE AND LABELED WIT H THE PATIENT'S NAME, CONSISTS OF ONE PIECE OF SOFT WOODALL TIS JERI MEASURING 0.4 X 0.4 X 0.3 CM. THE SPECIMEN IS ENT IRELY SUBMITTED IN ON E CASSETTE.COMMEN T: ANTIBODIES WERE PERFORMED A DOUBLE STAIN. A POSIT AUDIE CONTROL FOR EACH ANTIBODY HAS BE EN REVIEWED AND AC CEPTED, 2 IHC STAIN(S) WERE PERFORMED. T HIS CASE HAS BEEN PEER-R EVIEWED. Hannah SOLANO. JOANA GUTIÉRREZ CERTIFIED DERMATOPATHOLOG IST, EX. [id number] This report was electronically signed. FINAL REPORT Lab Interpretation Abnormal (test code = 54476-8) [place] [facility] [id number] 11:00:00Alberto Murray MD 02/05/2020 12:51 PMBiopsy vulvaDate/Time: 02/05/2020 12:50 PMPerformed by: Alberto Murray MDAuthorized by: Alberto Murray MD Procedure Details - Skin Biopsy: Number of lesions treated: 1 Lesion 1: Area prepped and draped in sterile fashion: yes Body area: anogenital Anogenital location: vulva Initial size (mm): 4 Final defect size (mm): 4 Malignancy: malignancy unknown Sent for pathology: yes Biopsy method: punch biopsy Anesthetic used: local infiltration Complexity: simple Hemostasis: silver nitrate Patient tolerated procedure well: yes Ultrasound guided: no biopsy ultrasound guidedLas [place] MethodistManual [id number] 11:02:17 Test Item Value Reference Range Interpretation Comments Manual differential (test code = PERFORMED 86660-8) Neutrophils (test code = 48996-7) 19.0 % 39-69 L Lymphocytes (test code = 76773-3) 31.0 % 25-45 Monocytes (test code = 04333-8) 50.0 % 0-10 H Eosinophils (test code = 48379-5) 0.0 % 0-5 Basophils (test code = 50897-5) 0.0 % 0-1 Metamyelocytes (test code = 740-1) 0 % Promyelocytes (test code = 783-1) 0 % Platelet slide review (test code = Decreased A 31565-8) Ovalocytes (test code = 774-0) Moderate Lab Interpretation (test code = Abnormal 24704-9) [place] [facility] [id number] 11:19:54 Test Item Value Reference Range Interpretation Comments Case number (test [id number] code = 3891310) Surgical pathology See link below for PDF report (test code = Lab Report 2255) Result status (test This is Supplemental code = 7686009) Report for [id number] [place] [facility] [id number] 11:43:05 Test Item Value Reference Range Interpretation Comments Misc test name Breast Cancer 76 This orde r is for a (test code = Gene Somatic Breat Cancer 76 Gene 2566) Somatic Mutatio n Test Misc test result see note Miscellaneo us ordered (test code = for tracking pu rposes 1730) only, all reese ng and reporting will be performed by [employer] [place] [facility]Cytology (non-gynecological) [id number] 12:59:07 Test Item Value Reference Range Interpretation Comments Case number (test code = [id number]) Cytology See link below for (non-gynecological) PDF Lab Report report (test code = 1178) Result status (test code This is Final Report = [id number]) for [id number] [facility] Needle [id number] 15:26:59Hm Interface, Radiology Results - 10/19/2019 3:30 PM CSTEXAMINATION: US NEEDLE BIOPSYCLINICAL HISTORY: C21.0 Malignant neoplasm of anus unspecified, R59.1 Generalized enlarged lymph nodes,evaluate for metastatic anal cancer vs lymphoma vs otherTECHNIQUE:The risks, benefits, and alternatives were discussed with the patient and written informed consent was obtained.A site for needle injury was selected and the skin was prepped and draped in the usual sterile fashion. After local administration of 1% buffered lidocaine, a tiny dermatotomy was made. Using ultrasound guidance, serial 18-gauge core samples were obtained. The specimens were reviewed with pathology and were deemed adequate. The patient was discharged to the radiology recovery area for monitoring prior to discharge. They have been instructed to follow-up with for the results of the biopsy.Conscious sedation: None EBL: None.Complications: None.Assistants: None.IMPRESSION:Successful ultrasound-guided left supraclavicular lymph node biopsySELECT [id number] 14:01:00 Test Item Value Reference Range Interpretation Comments LDH (test code = 221 U/L 120-250 50921-5) [place] (test code = FASTING:NOFASTING: NO [place]) RAC (test code = Performing Organization RAC) Information: Site ID: RGA Name: [facility] Address: [address] [place] [phone] Director: Eliecer DevriesProthrombin time with [id number] 14:01:00 Test Item Value Reference Range Interpretation Comments INR (test code = 1.0 Reference R geoff 6301-6) 0.9-1.1Moderate -i ntensity Warfar in Therapy 2.0-3.0Higher-i nt ensity Warfarin Therapy 3.0-4 .0 Prothrombin time 10.4 9.0- 11.5 sec For more (test code = information on 5902-2) this test, go to:[email or web address] ti [email or web address]/faq/FAQ1 04 [place] (test code = FASTING:NOFASTING: [place]) NO RAC (test code = Performing RAC) Organization Information: Site ID: RGA Name: [facility] Address: [address] [place] [phone] Director: Eliecer DevriesPartial thromboplastin time, [id number] 14:01:00 Test Item Value Reference Interpretation Comments Range PTT (test 30 22- 34 sec This test has not been code = [place] [address]-4) monitoringunfra ctionated heparin therapy . For testing thatis validate d for this type of therapy , please referto the Hep nivia Anti-Xa assay (test [place] e [address]). For additional info rmation, please refer [email or web address] ion.[employer]/faq/ FEL879(This link is being p rovided for informational/e ducational purposes only.) [place] (test FASTING:NOFASTING code = : NO [place]) RAC (test Performing code = Organization RAC) Information: Site ID: RGA Name: [facility] Address: [address] [place] [phone] Director: Eliecer Devries
--- NOTE | 2020-08-20 16:39 | RAD REPORT ---
EXAM DESCRIPTION: RAD - Chest Single View - 08/20/2020 4:33 pm CLINICAL HISTORY: COUGH Chest pain. COMPARISON: Chest Single View dated 01/12/2019; CHEST SINGLE VIEW dated 02/04/2015 FINDINGS: Portable technique limits examination quality. Innumerable nodules are present in the lungs bilaterally likely representing metastatic disease. The heart is mildly prominent size. Right port catheter has tip in the SVC.
[2020-08-20 16:52] LABS: Absolute Lymphocytes (CBC) 0.3 K/uL (0.7-4.9); Basophils % 0.3 % (0-1.3); Hematocrit 20.5 % (36.0-45.0); Lymphocytes % 8.8 % (15.3-44.8); RBC Red Blood Cell Count 2.12 M/uL (3.86-4.86)
[2020-08-20] MEDS ORDERED: NA CHLORIDE 0.9% 2,000 ML ONE (16:52)
[2020-08-20 16:53] LABS: Protime INR 1.12
[2020-08-20] MEDS ORDERED: VANCOMYCIN/NS 1 gm 1 GM/250 ML BAG IVPB ONE (17:00)
[2020-08-20 17:08] LABS: Albumin 2.5 g/dL (3.4-5.0); Bilirubin Direct 0.3 mg/dL (0-0.2); Bilirubin Total 0.9 mg/dL (0.2-1.0); Potassium 4.4 mmol/L (3.5-5.1); Protein, Total 6.5 g/dL (6.4-8.2); Troponin (Emerg Dept Use Only) 0.09 ng/mL (0.0-0.045)
[2020-08-20 17:30] LABS: Blood Morphology Comment NOTED (NOT SEEN); Hypochromasia 1+; Platelet Estimate DECR; White Blood Cell Scan OK (OK)
[2020-08-20] MEDS ORDERED: NOREPINEPHRINE 4mg/D5W 250mL 4 MG/250 ML BAG IV ONE ×2 (18:32→22:33)
--- NOTE | 2020-08-20 20:23 | ER ---
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 85% on RA upon our arrival. we placed her on 2L nc and she went to 93%, we gave 1gram Tylenol PO. Coronavirus screen: At this time, the client does not indicate any symptoms associated with coronavirus-19. Ebola Screen: Patient denies travel to an Ebola-affected area in the 21 days before illness onset. 16:00 Method Of Arrival: EMS: [facility] tw2 16:00 Initial Sepsis Screen: Does the patient meet any 2 criteria? HR > 90 bpm. Does the tw2 patient have a suspected source of infection? Yes: Skin breakdown/wound Other: cancer. Risk Assessment: Do you want to hurt yourself or someone else? Patient reports no desire to harm self or others. Onset of symptoms was August 20, 2020. 16:02 Acuity: DEBBI 2 hb Triage Assessment: 16:00 General: Appears in no apparent distress. Behavior is calm, cooperative, appropriate tw2 for age. Pain: Denies pain. GI: Reports nausea, pt had a BM in gown at this time, pt was cleaned and placed in brief at this time. Historical: - Allergies: 16:45 No Known Drug Allergies; tw2 - PMHx: 16:45 Hypokalemia; Hyperlipidemia; Hypertension; Cancer, Brain; Cancer, Breast; Cancer, Lung; tw2 cancer, rectum; - PSHx: 16:45 Eyes; tw2 - Immunization history:: Adult Immunizations. - Social history:: Smoking status: . Screenin:05 Abuse screen: Denies threats or abuse. Nutritional screening: No deficits noted. tw2 Tuberculosis screening: No symptoms or risk factors identified. Fall Risk Secondary diagnosis (15 points) impaired mobility. Assessment: 16:10 General: Appears in no apparent distress. Behavior is calm, cooperative, appropriate tw2 for age. Pain: Denies pain. Neuro: Level of Consciousness is awake, alert, obeys commands, Oriented to person, place, time, situation. Cardiovascular: Heart tones S1 S2 Patient's skin is warm and dry. Respiratory: Airway is patent Respiratory effort is even, unlabored, Respiratory pattern is regular, symmetrical, Breath sounds are clear bilaterally. GI: Abdomen is flat, Bowel sounds present X 4 quads. : No signs and/or symptoms were reported regarding the genitourinary system. redness and swelling noted to vagina and rectum per pt "is from the radiation". EENT: No signs and/or symptoms were reported regarding the EENT system. Derm: No signs and/or symptoms reported regarding the dermatologic system. Derm: Skin is dry, Skin is pale, Skin temperature is warm. Musculoskeletal: Range of motion: intact in all extremities. 17:30 Reassessment: pts daughter at bedside states chemo doctor is Dr. Marcelina Brambila at [address] ph#[phone], information given to FRANCI Hallman at this time. 17:36 Reassessment: Patient appears in no apparent distress at this time. No changes from tw2 previously documented assessment. Patient and/or family updated on plan of care and expected duration. Pain level reassessed. 17:51 Reassessment: provider FRANCI Cortez and Dr. Cunningham notified of pts BP and approximately tw2 300 ml NS left to infuse at this time. 18:01 Reassessment: provider Dr. Cunningham at bedside at this time. tw2 19:00 General: Appears comfortable, well groomed, Behavior is calm, cooperative. Pain: Denies bb pain. Neuro: Level of Consciousness is awake, alert, obeys commands, Oriented to person, place, time, situation. Cardiovascular: Capillary refill < 3 seconds Patient's skin is warm and dry. Respiratory: Airway is patent Respiratory effort is even, unlabored, Respiratory pattern is regular. GI: Abdomen is non-distended. : vulva swollen and reddened. Derm: Skin is dry, Skin is pink, warm \\T\\ dry. Skin temperature is warm. Musculoskeletal: Circulation, motion, and sensation intact. 20:00 Reassessment: No changes from previously documented assessment. Patient is alert, bb oriented x 3, equal unlabored respirations, skin warm/dry/pink. family at bedside, IV site to right femoral vein and bilateral ACs intact, patent, with fluids infusing, pt to receive blood transfusion consent has been signed, family at bedside. 20:20 Reassessment: blood transfusion started to right femoral vein. bb 21:20 Reassessment: bedside report given to Rayna REDDY for ICU pt is A\\T\\O x 4, resp unlabored, bb blood transfusing to right femoral vein, pt with no transfusion reaction at this time. IV sites intact, patent, no erythema or edema noted. Vital Signs: 16:00 BP 90 / 44; Pulse 90; Resp 22; Pulse Ox 88% on R/A; Weight 58.06 kg (R); tw2 16:17 BP 90 / 44; Pulse 99; Resp 20; Temp 99.9(O); Pulse Ox 88% on R/A; tw2 17:04 BP 63 / 46; Pulse 105; Resp 20; Pulse Ox 96% on 2 lpm NC; tw2 17:36 BP 78 / 53; Pulse 85; Resp 22; Pulse Ox 95% on 2 lpm NC; tw2 17:48 BP 65 / 41; Pulse 82; Resp 16; Pulse Ox 95% ; sv 18:02 BP 67 / 43; Pulse 79; Resp 20; Temp 98.2(O); Pulse Ox 95% on 2 lpm NC; tw2 18:30 BP 85 / 53; Pulse 74; Resp 16; Pulse Ox 95% on 2 lpm NC; tw2 18:35 BP 80 / 50; Pulse 72; Resp 16; Pulse Ox 95% on 2 lpm NC; tw2 18:40 BP 74 / 49; Pulse 72; Resp 17; Pulse Ox 92% on 2 lpm NC; tw2 18:45 BP 73 / 52; Pulse 72; Resp 17; Pulse Ox 93% on 2 lpm NC; tw2 18:50 BP 73 / 52; Pulse 70; Resp 17; Pulse Ox 94% on 3 lpm NC; tw2 18:55 BP 73 / 50; Pulse 72; Resp 15; Pulse Ox 93% on 2 lpm NC; tw2 19:00 BP 73 / 50; Pulse 72; Resp 13; Pulse Ox 92% on 2 lpm NC; bb 19:15 BP 92 / 62; Pulse 75; Resp 20 S; Pulse Ox 93% on 2 lpm NC; bb 19:30 BP 90 / 64; Pulse 79; Resp 20 S; Pulse Ox 93% on 2 lpm NC; bb 19:45 BP 99 / 63; Pulse 75; Resp 22 S; Pulse Ox 91% on 2 lpm NC; bb 20:00 BP 96 / 73; Pulse 77; Resp 18 S; Pulse Ox 91% on 2 lpm NC; bb 20:15 BP 91 / 58; Pulse 76; Resp 20 S; Pulse Ox 91% on 3 lpm NC; bb 20:30 BP 86 / 53; Pulse 75; Resp 17 S; Pulse Ox 90% on 3 lpm NC; bb 20:45 BP 109 / 68; Pulse 84; Resp 19 S; Pulse Ox 91% on 3 lpm NC; bb 16:00 pt placed on 2L nc, will continue to monitor tw2 16:17 Pt placed on O2 \\T\\ 2L per NC. O2 sat up to 95%. tw2 17:04 provider notified of BP tw2 18:02 Dr. Cunningham at bedside at this time. tw2 ED Course: 15:58 Patient arrived in ED. hb 15:58 Chilango Mccullough PA is PHCP. cp 15:59 Gwyn Cunningham MD is Attending Physician. cp 16:00 Placed in gown. Bed in low position. Side rails up X2. monitor and storage bin tender on. Pulse ox on. tw2 NIBP on. 16:26 Triage completed. hb 16:30 Inserted saline lock: 22 gauge in left antecubital area, using aseptic technique. Blood tw2 collected. 16:33 Chest Single View XRAY In Process Unspecified. EDMS 16:41 Vanessa Perry, RN is Primary Nurse. tw2 17:05 Arm band placed on. tw2 17:07 Maintain EMS IV. Dressing intact. Site clean \\T\\ dry. Gauge \\T\\ site: 20 g RIGHT ac. tw 2 18:25 Assisted provider with central line placement. Set up central line tray. Triple lumen tw2 line placed in right femoral. Line placed by Gwyn Cunningham MD Placement verified by blood return, Dressed with Tegaderm, Patient tolerated well. Before procedure, did Practitioner(s) obtain informed consent? Yes. Patient \\T\\ family education about procedure, CLABSI prevention and S/S of infection? Yes. Time-out/Briefing performed prior to start of procedure? Yes. Was handwashing/sanitizing done immediately prior to procedure? Yes. Was patient positioned to in a way to prevent air embolism? Yes. Was procedure site sterilized? Yes, with chlorhexidine. Was the site allowed to dry? Yes. Was local anesthetic and/or sedation utilized? Yes. During the procedure, did the Practitioner(s) maintain a sterile field? Yes. Were unused ports clamped during insertion? Yes. Was blood aspirated from each lumen? Yes. 19:05 Report given to MAUREEN Maradiaga and MAUREEN Marcelino. tw2 19:38 initiated transfer with Bon from [facility]. mw2 19:39 [facility] denied patient due to bed capacity. mw2 19:45 initiated transfer with Sunita from [facility]. mw2 20:00 transfer was canceled per Chilango KOROMA. mw2 20:21 Blake Duarte MD is Hospitalizing Provider. cp 21:20 Patient admitted, IV remains in place. bb 21:37 Cem Franco is Hospitalizing Provider. cp Administered Medications: 16:51 Drug: NS 0.9% (30 ml/kg) 30 ml/kg Route: IV; Rate: bolus; Site: left antecubital; tw2 16:51 Drug: Cefepime 1 grams Route: IVPB; Rate: 200 ml/hr; Infused Over: 30 mins; Site: left tw2 antecubital; 17:20 Follow up: Response: No adverse reaction; IV Status: Completed infusion tw2 17:20 Drug: vancoMYCIN 1 grams Route: IVPB; Infused Over: 2 hrs; Site: left antecubital; tw2 18:28 Drug: Levophed (4 mg/250 mL D5W 4 mcg/min Route: IV; Rate: calculated rate; Site: right tw2 femoral; 18:32 Follow up: Rate change 10 mcg/min tw2 Outcome: 20:00 Instructed on the need for admit. bb 20:22 Decision to Hospitalize by Provider. cp 21:20 Admitted to ICU accompanied by nurse, family with patient, via stretcher, room ICU11, bb with oxygen, on monitor, with chart, Report called to Rayna REDDY 21:20 Condition: stable 22:00 Patient left the ED. bb Signatures: Dispatcher [employer] EDMS Anne Villanueva RN RN Ashwini Corley RN RN bb Chilango Mccullough PA PA cp Baxter, Heather, RN RN Vanessa Perry RN RN tw2 Jason, MyYadira mw2 Corrections: (The following items were deleted from the chart) 16:18 16:17 Temp 99.9F Oral; sv sv 17:47 16:17 Pulse Ox 88% RA; Temp 99.9F Oral; Pt placed on O2 \\T\\ 2L per NC. O2 sat up to 95%.; tw2 sv 19:14 19:05 Report given to MAUREEN Maradiaga tw2 tw2 22:03 19:30 BP 90 / 64; Pulse 77bpm; Resp 15bpm; Spontaneous; Pulse Ox 93% 2 lpm Nasal bb Cannula; bb 22:15 19:15 BP 92 / 62; Pulse 75bpm; MonitorResp 15bpm; Pulse Ox 93% 2 lpm Nasal Cannula; bb bb 22:15 19:45 BP 99 / 63; Pulse 75bpm; Resp 17bpm; Spontaneous; Pulse Ox 91% 2 lpm Nasal bb Cannula; bb 22:16 19:30 BP 90 / 64; Pulse 77bpm; Resp 15bpm; Pulse Ox 93% 2 lpm Nasal Cannula; bb bb 22:16 20:00 BP 96 / 73; Pulse 77bpm; Resp 18bpm; Pulse Ox 91% 2 lpm Nasal Cannula; bb bb
--- NOTE | 2020-08-20 20:23 | EDPHYS ---
Physician Documentation [facility] Name: Sharon Medina Age: 70 yrs Sex: Female : 1950 Arrival Date: 08/20/2020 Time: 15:58 Bed 4 Private MD: ED Physician Gwyn Cunningham HPI: 08/20 16:10 This 70 yrs old Female presents to ER via EMS with complaints of cp Nausea/Vomiting, Weakness. 16:10 The patient presents to the emergency department with nausea, that is mild, vomiting, cp that is intermittent, loose stools. Onset: The symptoms/episode began/occurred 1 week(s) ago. Possible causes: History of metastatic CA and receiving radiation therapy. Last radiation treatment was yesterday. 16:10 EMS reports patient with temp of 101 upon initial assessment. Given acetaminophen prior cp to arrival by EMS. 16:10 Associated signs and symptoms: Pertinent negatives: abdominal pain, constipation, cp diarrhea, GI bleeding. Historical: - Allergies: 16:45 No Known Drug Allergies; tw2 - PMHx: 16:45 Hypokalemia; Hyperlipidemia; Hypertension; Cancer, Brain; Cancer, Breast; Cancer, Lung; tw2 cancer, rectum; - PSHx: 16:45 Eyes; tw2 - Immunization history:: Adult Immunizations. - Social history:: Smoking status: . ROS: 16:15 Constitutional: Positive for poor PO intake, reported fever, Negative for body aches. cp 16:15 Eyes: Negative for injury, pain, redness, and discharge. cp 16:15 ENT: Negative for ear pain, sore throat, difficulty swallowing, difficulty handling secretions. 16:15 Cardiovascular: Negative for chest pain. 16:15 Respiratory: Positive for cough, Negative for shortness of breath, wheezing. 16:15 Abdomen/GI: Positive for nausea and vomiting, Negative for abdominal pain, diarrhea, constipation. 16:15 : Negative for urinary symptoms. 16:15 Neuro: Positive for weakness, Negative for altered mental status. 16:15 All other systems are negative. Exam: 16:15 Constitutional: The patient appears in no acute distress, alert, awake, cp non-diaphoretic, well developed, well nourished, obviously ill. 16:15 Head/Face: Normocephalic, atraumatic. cp 16:15 Eyes: Periorbital structures: appear normal, Pupils: equal, round, and reactive to light and accomodation, Extraocular movements: intact throughout, Conjunctiva: normal, no exudate, no injection, Sclera: no appreciated abnormality, Lids and lashes: appear normal, bilaterally. 16:15 ENT: External ear(s): are unremarkable, Nose: is normal, Mouth: Lips: dry, Oral mucosa: moist, Posterior pharynx: Airway: no evidence of obstruction, patent. 16:15 Neck: ROM/movement: is normal, is supple, no meningismus, no nuchal rigidity. 16:15 Chest/axilla: Inspection: normal, Palpation: is normal, no crepitus, no tenderness. 16:15 Cardiovascular: Rate: normal, Rhythm: regular, Edema: is not appreciated, JVD: is not appreciated. 16:15 Respiratory: the patient does not display signs of respiratory distress, Respirations: normal, no use of accessory muscles, no retractions, labored breathing, is not present, Breath sounds: decreased breath sounds, that are mild, throughout, stridor, is not appreciated, wheezing: is not appreciated. 16:15 Abdomen/GI: Inspection: abdomen appears normal, Bowel sounds: active, all quadrants, Palpation: abdomen is soft and non-tender, in all quadrants. 16:15 Back: pain, is absent. 16:15 Skin: erythema in groin and pelvic area. 16:15 Neuro: Orientation: to person, place \T\ time. Mentation: able to follow commands, slow to respond, Motor: moves all fours, general weakness with no focal deficits, Sensation: no obvious gross deficits. 17:10 ECG was reviewed by the Attending Physician. cp Vital Signs: 16:00 BP 90 / 44; Pulse 90; Resp 22; Pulse Ox 88% on R/A; Weight 58.06 kg (R); tw2 16:17 BP 90 / 44; Pulse 99; Resp 20; Temp 99.9(O); Pulse Ox 88% on R/A; tw2 17:04 BP 63 / 46; Pulse 105; Resp 20; Pulse Ox 96% on 2 lpm NC; tw2 17:36 BP 78 / 53; Pulse 85; Resp 22; Pulse Ox 95% on 2 lpm NC; tw2 17:48 BP 65 / 41; Pulse 82; Resp 16; Pulse Ox 95% ; sv 18:02 BP 67 / 43; Pulse 79; Resp 20; Temp 98.2(O); Pulse Ox 95% on 2 lpm NC; tw2 18:30 BP 85 / 53; Pulse 74; Resp 16; Pulse Ox 95% on 2 lpm NC; tw2 18:35 BP 80 / 50; Pulse 72; Resp 16; Pulse Ox 95% on 2 lpm NC; tw2 18:40 BP 74 / 49; Pulse 72; Resp 17; Pulse Ox 92% on 2 lpm NC; tw2 18:45 BP 73 / 52; Pulse 72; Resp 17; Pulse Ox 93% on 2 lpm NC; tw2 18:50 BP 73 / 52; Pulse 70; Resp 17; Pulse Ox 94% on 3 lpm NC; tw2 18:55 BP 73 / 50; Pulse 72; Resp 15; Pulse Ox 93% on 2 lpm NC; tw2 19:00 BP 73 / 50; Pulse 72; Resp 13; Pulse Ox 92% on 2 lpm NC; bb 19:15 BP 92 / 62; Pulse 75; Resp 20 S; Pulse Ox 93% on 2 lpm NC; bb 19:30 BP 90 / 64; Pulse 79; Resp 20 S; Pulse Ox 93% on 2 lpm NC; bb 19:45 BP 99 / 63; Pulse 75; Resp 22 S; Pulse Ox 91% on 2 lpm NC; bb 20:00 BP 96 / 73; Pulse 77; Resp 18 S; Pulse Ox 91% on 2 lpm NC; bb 20:15 BP 91 / 58; Pulse 76; Resp 20 S; Pulse Ox 91% on 3 lpm NC; bb 20:30 BP 86 / 53; Pulse 75; Resp 17 S; Pulse Ox 90% on 3 lpm NC; bb 20:45 BP 109 / 68; Pulse 84; Resp 19 S; Pulse Ox 91% on 3 lpm NC; bb 16:00 pt placed on 2L nc, will continue to monitor tw2 16:17 Pt placed on O2 \T\ 2L per NC. O2 sat up to 95%. tw2 17:04 provider notified of BP tw2 18:02 Dr. Cunningham at bedside at this time. tw2 Procedures: 18:25 Central Line: the site was prepped with Betadine, in sterile fashion, a triple lumen rn catheter was inserted, in the right femoral vein, in 1 attempts. placement was verified, by blood return, the site was dressed with Tegaderm, using sterile technique, the patient tolerated the procedure, well. MDM: 16:02 Patient medically screened. cp 16:30 Differential diagnosis: gastritis, viral gastroenteritis, gastroenteritis, sepsis, cp pneumonia, volume depletion, electrolyte abnormality. 19:55 ED course: Attempt to transfer to [facility] by request of cp patient/family unsuccessful as transfer center declines due to facility being at capacity. 20:00 Data reviewed: vital signs, nurses notes, lab test result(s), EKG, radiologic studies, cp plain films. 20:00 Test interpretation: by ED physician or midlevel provider: ECG. Counseling: I had a cp detailed discussion with the patient and/or guardian regarding: the historical points, exam findings, and any diagnostic results supporting the discharge/admit diagnosis, lab results, radiology results, the need for further work-up and treatment in the hospital. Response to treatment: the patient's symptoms have markedly improved after treatment. ED course: Reevaluation: Patient afebrile, blood pressure improved with systolic pressure greater than 90 systolic, no signs of respiratory distress observed. 08/20 16: Order name: Urine Culture 08/20 16: Order name: Basic Metabolic Panel; Complete Time: 17:18 08/20 17:18 Interpretation: Normal except: CL 113; CO2 20; GLUC 123; BUN 76; CRE 1.82; GFR 27; CA cp 8.0. 08/20 16: Order name: Blood Culture Adult (2) 08/20 16:02 Order name: CBC with Diff; Complete Time: 18:49 08/20 17:23 Interpretation: Normal except: WBC 3.8; RBC 2.12; HGB 6.8; HCT 20.5; MCV 96.9; MCH cp 32.0; PLT 37; RDW 19.7; MICHELLE% 87.0; LYM% 8.8; LYMA 0.3. 08/20 16:02 Order name: CPK; Complete Time: 17:18 08/20 16: Order name: Lactate; Complete Time: 17:18 08/20 17:23 Interpretation: Abnormal: LAC 2.7. 08/20 16: Order name: LFT's; Complete Time: 17:18 08/20 16:02 Order name: Lipase; Complete Time: 17:18 08/20 16:02 Order name: Procalcitonin; Complete Time: 18:49 08/20 18:49 Interpretation: Abnormal: Procalcitonin 3.96. 08/20 16:02 Order name: Protime (+inr); Complete Time: 17:18 08/20 16:02 Order name: Ptt, Activated; Complete Time: 17:18 08/20 16:02 Order name: Troponin (emerg Dept Use Only); Complete Time: 17:18 08/20 17:23 Interpretation: Abnormal: TROPED 0.09. 08/20 16:02 Order name: Urine Microscopic Only 08/20 16:02 Order name: COVID-19 08/20 16:02 Order name: Chest Single View XRAY; Complete Time: 16:43 08/20 16:44 Interpretation: Report review. 08/20 16:02 Order name: Accucheck; Complete Time: 16:52 08/20 16:02 Order name: Flu; Complete Time: 17:18 08/20 17:19 Order name: Type And Screen 08/20 17:24 Order name: Bb Add On bd 08/20 17:30 Order name: CBC Smear Scan; Complete Time: 18:49 [facility] 08/20 18:06 Order name: Packed RBC Leukored [facility] 08/20 18:42 Order name: ABO/RH no charge; Complete Time: 18:49 [facility] 08/20 21:08 Order name: Lactate Sepsis 2 HR Follow-up; Complete Time: 21:38 [facility] 08/20 21:11 Order name: Vancomycin Level Trough [facility] 08/20 21:11 Order name: Vancomycin Peak [facility] 08/20 16:02 Order name: Cardiac monitoring; Complete Time: 16:52 08/20 16:02 Order name: EKG - Nurse/Tech; Complete Time: 17:34 08/20 16:02 Order name: IV Saline Lock - Large Bore; Complete Time: 17:34 08/20 16:02 Order name: Labs collected and sent; Complete Time: 16:53 08/20 16:02 Order name: O2 Per Protocol; Complete Time: 16:53 08/20 16:02 Order name: O2 Sat Monitoring; Complete Time: 16:53 cp 08/20 16:02 Order name: Allyson PUI# cp 08/20 16:02 Order name: Droplet/Contact Precautions cp 08/20 16:02 Order name: Notify Health Dept [phone]/ cp EC:10 Rate is 79 beats/min. Rhythm is regular. NC interval is normal. QRS interval is normal. cp QT interval is normal. T waves are Inverted in lead III. Interpreted by me. Reviewed by me. Administered Medications: 16:51 Drug: NS 0.9% (30 ml/kg) 30 ml/kg Route: IV; Rate: bolus; Site: left antecubital; tw2 16:51 Drug: Cefepime 1 grams Route: IVPB; Rate: 200 ml/hr; Infused Over: 30 mins; Site: left tw2 antecubital; 17:20 Follow up: Response: No adverse reaction; IV Status: Completed infusion tw2 17:20 Drug: vancoMYCIN 1 grams Route: IVPB; Infused Over: 2 hrs; Site: left antecubital; tw2 18:28 Drug: Levophed (4 mg/250 mL D5W 4 mcg/min Route: IV; Rate: calculated rate; Site: right tw2 femoral; 18:32 Follow up: Rate change 10 mcg/min tw2 Disposition: 08/20/20 20:22 Hospitalization ordered by Cem Franco for Inpatient Admission. Preliminary diagnosis are Severe sepsis with septic shock, Hypotension, Acute kidney failure, Anemia in other chronic diseases classified elsewhere. - Bed requested for Intensive Care Unit. - Status is Inpatient Admission. bb - Condition is Stable. - Problem is new. - Symptoms have improved. Critical care time excluding procedures: 21:00 Critical care time: Bedside Care: 20 minutes, Consultation: 25 minutes, Family cp Intervention: 10 minutes. Total time: 55 minutes Signatures: Dispatcher [employer] Ashwini Sanz RN RN bb Gwyn Cunningham MD MD rn Page, Corey, PA PA cp Wise, Tara, RN RN tw2 Corrections: (The following items were deleted from the chart) 17:18 17:18 Normal except: CL 113; CO2 20; GLUC 123; BUN 76; CRE 1.82; GFR 27. cp cp 17:35 16:02 [place] ordered. cp tw2 21:37 20:22 Hospitalization Ordered by Blake Duarte MD for Inpatient Admission. Preliminary cp diagnosis is Severe sepsis with septic shock. Bed requested for Intensive Care Unit. Status is Inpatient Admission. Condition is Stable. Problem is new. Symptoms have improved. cp 21:39 21:37 08/20/2020 20:22 Hospitalization Ordered by Cem Franco for Inpatient cp Admission. Preliminary diagnosis is Severe sepsis with septic shock; Hypotension. Bed requested for Intensive Care Unit. Status is Inpatient Admission. Condition is Stable. Problem is new. Symptoms have improved. cp 22:00 21:39 08/20/2020 20:22 Hospitalization Ordered by Cem Franco for Inpatient bb Admission. Preliminary diagnosis is Severe sepsis with septic shock; Hypotension; Acute kidney failure; Anemia in other chronic diseases classified elsewhere. Bed requested for Intensive Care Unit. Status is Inpatient Admission. Condition is Stable. Problem is new. Symptoms have improved. cp 08/21 17:31 08/20 17:55 ED course: Attempt to transfer to [facility] by request of cp patient/family unsuccessful as transfer center declines due to facility being at capacity. cp
[2020-08-20] MEDS ORDERED: NA CHLORIDE 0.9% 200 ML IV ONE (20:26)
[2020-08-20] MEDS ORDERED: ACETAMINOPHEN 500 MG TAB PO PRN (21:18)
[2020-08-20] MEDS ORDERED: ONDANSETRON 4 MG/2 ML VIAL IV PRN (21:18)
[2020-08-20] MEDS ORDERED: VANCOMYCIN 1 GM in NA CHLORIDE 0.9% 500 ML IVPB SCH (22:00)
[2020-08-20] MEDS ORDERED: NA CHLORIDE 0.9% 1,000 ML IV SCH (22:00)
[2020-08-20 22:25] VITALS: BMI 25.8
[2020-08-20] MEDS: NOREPINEPHRINE 4 MG in D5W 250 ML IV PRN (22:32)
[2020-08-20] MEDS ORDERED: NA CHLORIDE 0.9% 1,000 ML ONE (22:58)
[2020-08-20] MEDS: NA CHLORIDE 0.9% 1,000 ML IV SCH (23:07)
--- NOTE | 2020-08-20 23:15 | P.HP ---
Certification for Inpatient With expected LOS: >2 Midnights Patient will require the following post-hospital care: None Practitioner: I am a practitioner with admitting privileges, knowledge of patient current condition, hospital course, and medical plan of care. Services: Services provided to patient in accordance with Admission requirements found in Title 42 Section 412.3 of the Code of Federal Regulations <Noel Dickens - Last Filed: 08/20/20 23:05> Patient History Date of Service: 08/20/20 Reason for admission: Septic shock History of Present Illness: 70-year-old female with past medical history of essential hypertension, hyperlipidemia, colon cancer with metastasis to lung, brain and liver currently undergoing radiation therapy presents to the emergency room with complaints of nausea and vomiting and intermittent loose stools. Patient denies active bleeding. States that when they found her cancer in the colon she was actively bleeding. The emergency room patient is found to be in septic shock. Patient was hypotensive with an elevated lactic acid of 2.7, procalcitonin of 3.96, BUN of 76, creatinine of 1.8 with a GFR of 27. Sepsis protocol was initiated. Patient has received 3 L IV fluids. Patient is alert and oriented and in no distress. States she has not eaten much and feels thirsty. Patient was started on a Levophed drip. She was also found to be anemic with a hemoglobin of 6.8 and a hematocrit of 20.5 on admission. Platelets of 37. Source of infection is unclear. Last radiation treatment was Wednesday. Her nausea and vomiting have resolved after IV fluids. She is also noted to have some skin breakdown on the pelvic area from radiation therapy. Patient will be admitted to the ICU and further evaluated. Patient is DNR. - Past Medical/Surgical History Diabetic: No -: Essential hypertension -: Colon cancer with metastasis to brain, liver and lungs -: Hyperlipidemia -: quirino cataract surgery Psychosocial/ Personal History: Lives at home with daughter - Family History Mother -: Heart disease, Diabetes Notes: open heart sx, pacemaker placed, Father -: Heart disease Notes: open heart sx - Social History Smoking Status: Never smoker Alcohol use: No CD- Drugs: No Caffeine use: Yes Place of Residence: Home <GilbertNoel bocanegra - Last Filed: 08/20/20 23:05> Date of Service: 08/24/20 <lucacesario - Last Filed: 08/24/20 08:12> Allergies No Known Drug Allergies Allergy (Verified 04/26/19 12:23) Unknown Home Medications: Enalapril [Vasotec*] 20 mg PO DAILY 02/05/15 Furosemide [Lasix*] 40 mg PO DAILY 02/05/15 Potassium Chloride 20 meq PO DAILY 02/05/15 Pravastatin Sodium [Pravachol] 20 mg PO DAILY 02/05/15 Atenolol [Tenormin] 50 mg PO DAILY 08/20/20 Gabapentin 600 mg PO BID 08/20/20 Iron/FA/Vit B-Com W/C [Hemocyte Plus*] 1 cap PO DAILY 08/20/20 Review of Systems General: Weakness, As per HPI Eyes: Unremarkable ENT: Unremarkable Respiratory: Unremarkable Cardiovascular: Unremarkable Gastrointestinal: Nausea, Vomiting, As per HPI Genitourinary: Unremarkable Musculoskeletal: Unremarkable Integumentary: As per HPI Neurological: Unremarkable Lymphatics: Unremarkable <Noel Dickens - Last Filed: 08/20/20 23:05> Physical Examination - Vital Signs Temperature: 98.2 F Blood Pressure: 99/63 Pulse: 75 Respirations: 17 Pulse Ox (%): 95 (2L NC) - Physical Exam General: Alert, In no apparent distress, Oriented x3 HEENT: Atraumatic, Normocephalic, PERRLA, Mucous membr. moist/pink Neck: Supple, No Thyromegaly, Other (Trachea midline) Respiratory: Clear to auscultation bilaterally, Diminished Cardiovascular: No edema, Normal pulses Capillary refill: Brisk Gastrointestinal: Normal bowel sounds, Soft and benign Musculoskeletal: No clubbing, No swelling, No contractures, No erythema, No tenderness Integumentary: No rashes, No tenderness/swelling, Skin breakdown Neurological: Normal gait, Normal speech, Normal affect - Studies Laboratory Data (last 24 hrs) 08/20/20 16:30: PT 13.2 H, INR 1.12, APTT 31.6 08/20/20 16:30: WBC 3.8 L, Hgb 6.8 L*, Hct 20.5 L*, Plt Count 37 L* 08/20/20 16:30: Sodium 143, Potassium 4.4, BUN 76 H, Creatinine 1.82 H, Glucose 123 H, Total Bilirubin 0.9, AST 62 H, ALT 26, Alkaline Phosphatase 104, Lipase 51 L Microbiology Data (last 24 hrs): 08/20/20 16:20 Nasopharnyx Influenza Type A Antigen Screen - Final 08/20/20 16:20 Nasopharnyx Influenza Type B Antigen Screen - Final <Noel Dickens - Last Filed: 08/20/20 23:05> Assessment and Plan - Plan Impression: Septic shock: Anemia of chronic disease: Acute kidney injury: Dehydration: History of colon cancer with metastasis to liver lungs and brain: Plan: Septic shock: Patient had an elevated lactic acid, elevated procalcitonin of 3.96 that she is also dehydrated with a BUN of 76 and a creatinine of 1.8 and a GFR of 27. Patient was started empirically on vancomycin. Source of infection unclear. Patient is currently undergone radiation therapy in the brain as well as in the pelvic area for cancer. There is some skin breakdown from the radiation. Mostly in the pelvic area. Patient received 3 L IV fluid bolus. She is on a Levophed drip and responding well. Her blood pressure is stabilizing. Patient wants to be DNR. Continue to monitor and follow protocol. Anemia of chronic disease: Likely from a history of metastatic cancer and radiation. Receiving 2 units PRBCs. Hemoglobin of 6.8 with hematocrit of 20.5 on arrival to ED. Will monitor. Acute kidney injury: Likely secondary to dehydration. Bolused 3 L of IV fluids in the ER. Continue gentle IV hydration. Monitor creatinine levels. Dehydration: Patient dehydrated. BUN of 76 with a creatinine of 1.8 and a GFR of 27. Received 3 L of IV fluids in the ED. Will continue gentle IV hydration. Monitor. History of colon cancer with metastasis to liver lungs and brain: Patient's last radiation therapy to the brain and the pelvic area were on Wednesday of last week. Patient is currently undergoing radiation therapy. Discharge Plan: Home Plan to discharge in: Greater than 2 days - Advance Directives Does patient have a Living Will: No Does patient have a Durable POA for Healthcare: No - Code Status/Comfort Care Code Status Assessed: Yes Time Spent Managing Pts Care (In Minutes): 55 <Noel Dickens - Last Filed: 08/20/20 23:05> - Problems (Diagnosis) (1) Septic shock Current Visit: Yes Status: Acute (2) Acute renal failure Current Visit: Yes Status: Acute (3) Metastatic colon cancer in female Current Visit: Yes Status: Acute (4) Metabolic acidosis Current Visit: Yes Status: Acute (5) Thrombocytopenia Current Visit: Yes Status: Acute (6) Anemia Current Visit: Yes Status: Acute Physician Review: Patient Assessed, Agree with Above Assessment and Plan Physician Review Additional Text: Septic shock Metastatic colon cancer. Plan: Vasopressors as needed IV fluid Aggressive antibiotics. <cesario segovia - Last Filed: 08/24/20 08:12>
--- NOTE | 2020-08-20 23:27 | P.INFCA ---
Sepsis Focused Assessment - Sepsis Screen Result Severe Sepsis: Positive Septic Shock: Negative - Evaluation Current stage of sepsis: Severe sepsis - Vital Signs Reviewed: Yes Temperature: 98.2 F Heart rate: 75 Blood Pressure: 99/63 Respiratory Rate: 17 O2 Sat by Pulse Oximetry: 95 (2L NC) - Examination Date exam was performed: 08/20/20 Time exam was performed: 23:25 Heart: Regular rate/rhythm Lungs: Clear bilaterally Peripheral pulses: 3+ Normal Peripheral pulse location: Posterior tibial Capillary refill: <2 Seconds Skin examination: Normal turgor Comments: Weaning off the Levophed. Map of 71. Vital stable. A&Ox3
[2020-08-21] MEDS ORDERED: HYDRALAZINE HCL 20 MG/ML VIAL IV PRN (02:20)
[2020-08-21] MEDS ORDERED: HYDRALAZINE HCL 20 MG/ML VIAL ONE (02:47)
[2020-08-21 05:52] LABS: Absolute Lymphocytes (CBC) 0.4 K/uL (0.7-4.9); Basophils % 0.1 % (0-1.3); Hematocrit 25.9 % (36.0-45.0); Lymphocytes % 5.9 % (15.3-44.8); MPV 8.2 fL (7.6-11.3); RBC Red Blood Cell Count 2.84 M/uL (3.86-4.86)
[2020-08-21 06:06] LABS: Albumin 2.1 g/dL (3.4-5.0); Potassium 4.1 mmol/L (3.5-5.1); Protein, Total 5.8 g/dL (6.4-8.2)
[2020-08-21 08:03] LABS: Blood Morphology Comment NOT SEEN (NOT SEEN); Dohle Bodies NOTED; Platelet Estimate DECR; Polychromasia SLIGHT
[2020-08-21] MEDS: GABAPENTIN 300 MG CAP PO SCH ×2 (09:00→21:52)
[2020-08-21] MEDS: POTASSIUM CL SA 10 MEQ TAB PO SCH (09:00)
[2020-08-21] MEDS ORDERED: ENALAPRIL 10 MG TAB PO SCH (09:00)
[2020-08-21] MEDS ORDERED: CEFEPIME 1 GM/VIAL IV SCH ×2 (09:00)
[2020-08-21] MEDS ORDERED: FUROSEMIDE 40 MG TABLET PO SCH (09:00)
[2020-08-21] MEDS ORDERED: atenoloL 50 MG TAB PO SCH (09:00)
[2020-08-21] MEDS ORDERED: ATORVASTATIN 10 MG TAB PO SCH (09:00)
[2020-08-21] MEDS: NA CHLORIDE 0.9% 1,000 ML IV SCH ×2 (10:09→18:00)
[2020-08-21] MEDS: CEFEPIME/SWI 1gm 10 ML IV SCH ×2 (10:10→21:00)
[2020-08-21] MEDS: FE SULF/FA/VIT B COMP & C TAB PO SCH (10:10)
[2020-08-21] MEDS ORDERED: POTASSIUM CL SA 10 MEQ TAB PO ONE (10:16)
[2020-08-21] MEDS ORDERED: NA CHLORIDE 0.9% 1,000 ML ONE ×2 (10:16→20:20)
[2020-08-21] MEDS ORDERED: GABAPENTIN 300 MG CAP ONE (10:16)
--- NOTE | 2020-08-21 12:04 | EKG ---
Test Date: 2020-08-20 Test Time: 16:59:16 [employer]immer And Reinforcer: [place] MEASUREMENT RESULTS: Intervals: Rate: 79 PA: 150 QRSD: 76 QT: 360 QTc: 412 [place]: P: 13 PA: 150 QRS: -16 T: 12 INTERPRETIVE STATEMENTS: Normal sinus rhythm Normal ECG Compared to ECG 04/26/2019 10:26:58 Atrial premature complex(es) no longer present Electronically Signed On 08-21-20 12:01:34 CDT by Abdulaziz Patricio
[2020-08-21 12:54] LABS: Absolute Lymphocytes (CBC) 0.7 K/uL (0.7-4.9); Basophils % 0.1 % (0-1.3); Hematocrit 28.9 % (36.0-45.0); Lymphocytes % 7.6 % (15.3-44.8); MPV 8.5 fL (7.6-11.3); RBC Red Blood Cell Count 3.15 M/uL (3.86-4.86)
--- NOTE | 2020-08-21 14:25 | P.PN ---
Subjective Date of Service: 08/21/20 Chief Complaint: Septic shock Patient blood pressure has improved but still requiring low dose Levophed drip. She does not appear sick. She has been having frequent diarrhea at home. She is requiring 4-5 L of oxygen to maintain oxygen saturation above 90%. She has been afebrile. Physical Examination - Vital Signs Temperature: 98.6 F Blood Pressure: 103/67 Pulse: 84 Respirations: 20 Pulse Ox (%): 98 - Physical Exam General: Alert, In no apparent distress HEENT: Mucous membr. moist/pink Neck: Supple Respiratory: Clear to auscultation bilaterally, Normal air movement Cardiovascular: No edema, Regular rate/rhythm, Normal S1 S2 Gastrointestinal: Normal bowel sounds, Soft and benign, Non-distended, No tenderness Musculoskeletal: No swelling Integumentary: No rashes Neurological: Normal speech, Normal strength at 5/5 x4 extr - Studies Laboratory Data (last 24 hrs) 08/20/20 16:30: PT 13.2 H, INR 1.12, APTT 31.6 08/20/20 16:30: WBC 3.8 L, Hgb 6.8 L*, Hct 20.5 L*, Plt Count 37 L* 08/20/20 16:30: Sodium 143, Potassium 4.4, BUN 76 H, Creatinine 1.82 H, Glucose 123 H, Total Bilirubin 0.9, AST 62 H, ALT 26, Alkaline Phosphatase 104, Lipase 51 L Microbiology Data (last 24 hrs): 08/20/20 16:20 Nasopharnyx Influenza Type A Antigen Screen - Final 08/20/20 16:20 Nasopharnyx Influenza Type B Antigen Screen - Final Assessment And Plan - Current Problems (Diagnosis) (1) Septic shock Current Visit: Yes Status: Acute (2) Acute renal failure Current Visit: Yes Status: Acute (3) Metastatic colon cancer in female Current Visit: Yes Status: Acute (4) Metabolic acidosis Current Visit: Yes Status: Acute (5) Thrombocytopenia Current Visit: Yes Status: Acute (6) Anemia Current Visit: Yes Status: Acute - Plan Continue treatment in the ICU. Weaned off Levophed as tolerated. Continue IV hydration with normal saline. They should also help correct metabolic acidosis. Aggressive antibiotic therapy-IV cefepime and vancomycin. Follow blood cultures. Obtain urinalysis and reflex urine culture. Repeat chest x-ray. Monitor CBC to follow hemoglobin and platelet count. Avoid anticoagulants and antiplatelets. SCD for DVT prophylaxis. Critical Care: Yes (Critical care time spent is about 42 min.) Time Spent Managing PTS Care (In Minutes): 56
--- NOTE | 2020-08-21 15:21 | RAD REPORT ---
EXAM DESCRIPTION: RAD - Chest Single View - 08/21/2020 3:13 pm CLINICAL HISTORY: Hypoxia Chest pain. COMPARISON: Chest Single View dated 08/20/2020; Chest Single View dated 01/12/2019; CHEST SINGLE VIEW dated 02/04/2015 FINDINGS: Portable technique limits examination quality. Innumerable bilateral pulmonary nodules are again seen compatible with metastasis. The heart is mildl y enlarged in size. Right-sided port catheter its tip in the SVC.
[2020-08-21] MEDS ORDERED: CEFEPIME/SWI 1gm 10 ML IV SCH (17:00)
[2020-08-21] MEDS ORDERED: VANCOMYCIN 0.75 GM in NA CHLORIDE 0.9% 250 ML IVPB SCH (17:00)
[2020-08-21] MEDS: NOREPINEPHRINE 4 MG in D5W 250 ML IV PRN (17:24)
[2020-08-21] MEDS: ATORVASTATIN 10 MG TAB PO SCH (21:00)
[2020-08-21] MEDS: dexAMETHasone 4 MG TAB PO SCH (21:51)
[2020-08-21] MEDS ORDERED: CEFAZOLIN SODIUM 1 GM/VIAL ONE (21:55)
[2020-08-21] MEDS ORDERED: ATORVASTATIN 20 MG TAB ONE ×2 (21:56→22:16)
[2020-08-21] MEDS ORDERED: dexAMETHasone 4 MG TAB ONE (22:01)
[2020-08-21] MEDS ORDERED: CEFEPIME 2 GM VIAL ONE (22:01)
[2020-08-22] MEDS: NA CHLORIDE 0.9% 1,000 ML IV SCH ×2 (04:00→14:00)
[2020-08-22] MEDS ORDERED: NA CHLORIDE 0.9% 1,000 ML ONE ×3 (04:37→20:30)
[2020-08-22] MEDS: VANCOMYCIN/NS 1 gm 1 GM/250 ML BAG IVPB SCH (05:07)
[2020-08-22] MEDS: POTASSIUM CL SA 10 MEQ TAB PO SCH (09:00)
[2020-08-22] MEDS: GABAPENTIN 300 MG CAP PO SCH ×2 (09:00→20:25)
[2020-08-22] MEDS: dexAMETHasone 4 MG TAB PO SCH (09:57)
[2020-08-22] MEDS: CEFEPIME/SWI 1gm 10 ML IV SCH ×2 (10:03→20:28)
[2020-08-22] MEDS ORDERED: dexAMETHasone 4 MG TAB ONE (10:03)
[2020-08-22] MEDS ORDERED: POTASSIUM CL SA 10 MEQ TAB PO ONE (10:03)
[2020-08-22] MEDS: FE SULF/FA/VIT B COMP & C TAB PO SCH (10:04)
--- NOTE | 2020-08-22 14:23 | P.PN ---
Subjective Date of Service: 08/22/20 Chief Complaint: Septic shock Patient states she feels better today. Levophed drip has been weaned off since this morning. Patient was seen eating. She has small mucoid frequent stools. She does not appear sick. She has been afebrile. Blood cultures have yielded no growth. Physical Examination - Vital Signs Temperature: 98.5 F Blood Pressure: 116/85 Pulse: 78 Respirations: 18 Pulse Ox (%): 96 - Physical Exam General: Alert, In no apparent distress Neck: Supple Respiratory: Clear to auscultation bilaterally, Normal air movement Cardiovascular: No edema, Regular rate/rhythm, Normal S1 S2 Gastrointestinal: Normal bowel sounds, Soft and benign, No tenderness Musculoskeletal: No swelling Integumentary: No rashes Neurological: Normal speech, Normal strength at 5/5 x4 extr Assessment And Plan - Current Problems (Diagnosis) (1) Septic shock Current Visit: Yes Status: Acute (2) Acute renal failure Current Visit: Yes Status: Acute (3) Metastatic colon cancer in female Current Visit: Yes Status: Acute (4) Metabolic acidosis Current Visit: Yes Status: Acute (5) Thrombocytopenia Current Visit: Yes Status: Acute (6) Anemia Current Visit: Yes Status: Acute - Plan Continue antibiotics Continue IV hydration with normal saline. They should also help correct metabolic acidosis. Aggressive antibiotic therapy-IV cefepime and vancomycin. Follow blood cultures. Urine analysis is pending. Feeding as tolerated. Transferred to the medical floor. Monitor CBC to follow hemoglobin and platelet count. Avoid anticoagulants and antiplatelets. SCD for DVT prophylaxis.
[2020-08-22] MEDS ORDERED: HYDROCODONE/APAP 7.5/325 MG TAB ONE (15:32)
[2020-08-22] MEDS ORDERED: GABAPENTIN 300 MG CAP ONE (20:30)
[2020-08-22] MEDS: ATORVASTATIN 10 MG TAB PO SCH (20:32)
[2020-08-22] MEDS ORDERED: ATORVASTATIN 10 MG TAB ONE (20:41)
[2020-08-23] MEDS: NA CHLORIDE 0.9% 1,000 ML IV SCH (00:57)
[2020-08-23 08:11] LABS: Absolute Lymphocytes (CBC) 0.4 K/uL (0.7-4.9); Basophils % 0.1 % (0-1.3); Hematocrit 27.3 % (36.0-45.0); MPV 9.6 fL (7.6-11.3); RBC Red Blood Cell Count 2.96 M/uL (3.86-4.86)
[2020-08-23 08:16] LABS: Potassium 4.2 mmol/L (3.5-5.1)
[2020-08-23] MEDS: POTASSIUM CL SA 10 MEQ TAB PO SCH (09:00)
[2020-08-23] MEDS: GABAPENTIN 300 MG CAP PO SCH ×2 (09:00→20:26)
[2020-08-23] MEDS: dexAMETHasone 4 MG TAB PO SCH (10:00)
[2020-08-23] MEDS: FE SULF/FA/VIT B COMP & C TAB PO SCH (10:00)
[2020-08-23] MEDS: D5W 1,000 ML with NA BICARB 8.4% 50 MEQ IV SCH ×4 (10:22→18:13)
[2020-08-23] MEDS ORDERED: dexAMETHasone 4 MG TAB ONE (10:39)
[2020-08-23] MEDS: CEFEPIME/SWI 1gm 10 ML IV SCH ×2 (11:08→20:27)
--- NOTE | 2020-08-23 17:15 | RAD REPORT ---
EXAM DESCRIPTION: US - Extremity Venous Uni Ltd - 08/23/2020 4:41 pm CLINICAL HISTORY: r/o dvt swollen and slightly discolored COMPARISON: None. TECHNIQUE: Real-time sonographic evaluation of the right lower extremity deep venous systems was per formed. FINDINGS: Normal compressibility, flow augmentation, phasic flow and spontaneous flow are identified in the right lower extremity common femoral, superficial femoral, popliteal and posterior tibial vei ns. No intraluminal filling defects seen. IMPRESSION: No DVT in the right lower extremity.
--- NOTE | 2020-08-23 17:38 | P.PN ---
Subjective Date of Service: 08/23/20 Chief Complaint: Septic shock Patient states she is doing better today. Blood pressure has been stable. Patient was seen eating. She has small mucoid frequent stools. She has been afebrile. Blood cultures have yielded no growth. Physical Examination - Vital Signs Temperature: 98.5 F Blood Pressure: 125/78 Pulse: 74 Respirations: 18 Pulse Ox (%): 98 - Physical Exam General: Alert, In no apparent distress HEENT: Mucous membr. moist/pink Respiratory: Clear to auscultation bilaterally, Normal air movement Cardiovascular: Edema (Bilateral lower extremities worse on the right) Gastrointestinal: Normal bowel sounds, Soft and benign, Non-distended, No tenderness Musculoskeletal: No erythema Neurological: Normal strength at 5/5 x4 extr Assessment And Plan - Current Problems (Diagnosis) (1) Septic shock Current Visit: Yes Status: Acute (2) Acute renal failure Current Visit: Yes Status: Acute (3) Metastatic colon cancer in female Current Visit: Yes Status: Acute (4) Metabolic acidosis Current Visit: Yes Status: Acute (5) Thrombocytopenia Current Visit: Yes Status: Acute (6) Anemia Current Visit: Yes Status: Acute - Plan Continue antibiotics. Change IV fluids to D5 with bicarb to correct metabolic acidosis. Nephrology consult. Follow blood cultures. Feeding as tolerated. Transfer to the medical floor. Monitor CBC to follow hemoglobin and platelet count. Avoid anticoagulants and antiplatelets. SCD for DVT prophylaxis.
[2020-08-23] MEDS: VANCOMYCIN/NS 1 gm 1 GM/250 ML BAG IVPB SCH (18:22)
[2020-08-23] MEDS: ATORVASTATIN 10 MG TAB PO SCH (20:26)
[2020-08-23] MEDS ORDERED: GABAPENTIN 300 MG CAP ONE (20:31)
[2020-08-23] MEDS ORDERED: ATORVASTATIN 20 MG TAB ONE (20:31)
[2020-08-24] MEDS: D5W 1,000 ML with NA BICARB 8.4% 50 MEQ IV SCH ×8 (04:57→20:38)
[2020-08-24] MEDS: GABAPENTIN 300 MG CAP PO SCH ×2 (08:23→20:40)
[2020-08-24] MEDS: dexAMETHasone 4 MG TAB PO SCH (08:23)
[2020-08-24] MEDS: FE SULF/FA/VIT B COMP & C TAB PO SCH (08:23)
[2020-08-24] MEDS: POTASSIUM CL SA 10 MEQ TAB PO SCH ×2 (08:25→20:39)
[2020-08-24] MEDS: CEFEPIME/SWI 1gm 10 ML IV SCH (10:13)
--- NOTE | 2020-08-24 12:05 | P.CNS ---
Date of Consult: 08/24/20 Reason for Consult: elevated creatinine and low bicarbonate Requesting Physician: cesario segovia Chief Complaint: Septic shock History of Present Illness: 70 yr old female with HTN , HLD, colon cancer with brain and lung mets , on estella mo-radition at oncology care with Dr Brambila at [facility] -unsure chemo regime names, admitted for anemia with h/h down to 6.8, acute renal failure with azotemia of 1.88 creatinine and LE edema . She is being ruled out for septic shock since low BP and elevated procalcitonin levels . Her serum bicarbonate on presentation was low at 13 but improving with bicarbonate gtt to 17 now . She desnies nay diarrhea but admit to soft stools with incontinence .She denies any nausea or vomiting but states slight reduced appetite She was noted with sacral area radiation dermatitis .She state increasing lower extremity edema since last 3 months . She feels tired of further chemo now and will like to quit Allergies No Known Drug Allergies Allergy (Verified 04/26/19 12:23) Unknown Home Medications: Enalapril [Vasotec*] 20 mg PO DAILY 02/05/15 Furosemide [Lasix*] 40 mg PO DAILY 02/05/15 Potassium Chloride 20 meq PO DAILY 02/05/15 Pravastatin Sodium [Pravachol] 20 mg PO DAILY 02/05/15 Atenolol [Tenormin] 50 mg PO DAILY 08/20/20 Gabapentin 600 mg PO BID 08/20/20 Iron/FA/Vit B-Com W/C [Hemocyte Plus*] 1 cap PO DAILY 08/20/20 - Past Medical/Surgical History Diabetic: No -: Essential hypertension -: Colon cancer with metastasis to brain, liver and lungs -: Hyperlipidemia -: quirino cataract surgery Psychosocial/ Personal History: Lives at home with daughter - Family History Sister Medical History: Cancer Mother Medical History: Heart disease, Diabetes Notes: open heart sx, pacemaker placed, Father Medical History: Heart disease Notes: open heart sx - Social History Alcohol use: No CD- Drugs: No Caffeine use: Yes Place of Residence: Home Review of Systems 10-point ROS is otherwise unremarkable Physical Examination Temp Pulse Resp BP Pulse Ox 97.8 F 90 18 140/76 96 08/24/20 08:00 08/24/20 08:00 08/24/20 08:00 08/24/20 08:00 08/24/20 08:00 General: Alert, Other (eldelry female , ) HEENT: Atraumatic, Normocephalic, PERRLA, Sclerae nonicteric Neck: 2+ carotid pulse no bruit, JVD not distended Respiratory: Normal air movement, Diminished Cardiovascular: Regular rate/rhythm, Normal S1 S2, Edema (2+ right > left LE ) Gastrointestinal: Normal bowel sounds, Distended, Ascites (mild , edematous wall ) Musculoskeletal: Swelling Integumentary: Rash(es) (sacral) Neurological: Normal speech, Sensation intact, Cranial nerves 3-12 intact Laboratory Last Values WBC 3.8 K/uL (4.3-10.9) L 08/20/20 16:30 RBC 2.12 M/uL (3.86-4.86) L 08/20/20 16:30 Hgb 6.8 g/dL (12.0-15.0) L* 08/20/20 16:30 Hct 20.5 % (36.0-45.0) L* 08/20/20 16:30 MCV 96.9 fL (80-100) D 08/20/20 16:30 MCH 32.0 pg (27.0-35.0) D 08/20/20 16:30 MCHC 33.0 g/dL (32.0-36.0) 08/20/20 16:30 RDW 19.7 % (12.1-15.2) H 08/20/20 16:30 Plt Count 37 K/uL (152-406) L* 08/20/20 16:30 MPV 8.0 fL (7.6-11.3) 08/20/20 16:30 Neutrophils % 87.0 % (41.7-73.7) H 08/20/20 16:30 Lymphocytes % 8.8 % (15.3-44.8) L 08/20/20 16:30 Monocytes % 3.8 % (3.3-12.3) 08/20/20 16:30 Eosinophils % 0.1 % (0-4.4) 08/20/20 16:30 Basophils % 0.3 % (0-1.3) 08/20/20 16:30 Absolute Neutrophils 3.3 K/uL (1.8-8.0) 08/20/20 16:30 Absolute Lymphocytes 0.3 K/uL (0.7-4.9) L 08/20/20 16:30 Absolute Monocytes 0.1 K/uL (0.1-1.3) 08/20/20 16:30 Absolute Eosinophils 0.0 K/uL (0-0.5) 08/20/20 16:30 Absolute Basophils 0.0 K/uL (0-0.5) 08/20/20 16:30 Platelet Estimate Decr 08/20/20 16:30 Hypochromasia 1+ 08/20/20 16:30 Morphology Comment Noted (NOT SEEN) 08/20/20 16:30 PT 13.2 SECONDS (9.5-12.5) H 08/20/20 16:30 INR 1.12 08/20/20 16:30 APTT 31.6 SECONDS (24.3-36.9) 08/20/20 16:30 Sodium 143 mmol/L (136-145) 08/20/20 16:30 Potassium 4.4 mmol/L (3.5-5.1) 08/20/20 16:30 Chloride 113 mmol/L (98-107) H 08/20/20 16:30 Carbon Dioxide 20 mmol/L (21-32) L 08/20/20 16:30 BUN 76 mg/dL (7-18) H 08/20/20 16:30 Creatinine 1.82 mg/dL (0.55-1.3) H 08/20/20 16:30 Estimated GFR 27 mL/min (=/>90) L 08/20/20 16:30 Glucose 123 mg/dL (74-106) H 08/20/20 16:30 Lactic Acid 1.0 mmol/L (0.4-2.0) 08/20/20 20:25 Calcium 8.0 mg/dL (8.5-10.1) L 08/20/20 16:30 Total Bilirubin 0.9 mg/dL (0.2-1.0) 08/20/20 16:30 Direct Bilirubin 0.3 mg/dL (0-0.2) H 08/20/20 16:30 AST 62 U/L (15-37) H 08/20/20 16:30 ALT 26 U/L (12-78) 08/20/20 16:30 Alkaline Phosphatase 104 U/L (45-117) 08/20/20 16:30 Creatine Kinase 67 U/L (26-192) 08/20/20 16:30 Rapid Troponin I 0.09 ng/mL (0.0-0.045) H 08/20/20 16:30 Serum Total Protein 6.5 g/dL (6.4-8.2) 08/20/20 16:30 Albumin 2.5 g/dL (3.4-5.0) L 08/20/20 16:30 Globulin 4.0 g/dL (2.3-3.5) H 08/20/20 16:30 Albumin/Globulin Ratio 0.6 (1.1-1.8) L 08/20/20 16:30 Lipase 51 U/L (73-393) L 08/20/20 16:30 Procalcitonin 3.96 ng/mL (<0.50) H 08/20/20 16:30 Urine RBC Cancelled 08/20/20 16:02 Urine WBC Cancelled 08/20/20 16:02 Ur Squamous Epith Cells Cancelled 08/20/20 16:02 Ur Urothelial Cells Cancelled 08/20/20 16:02 Calcium Oxalate Crystal Cancelled 08/20/20 16:02 Uric Acid Crystals Cancelled 08/20/20 16:02 Triple Phos Crystals Cancelled 08/20/20 16:02 Other Crystals Cancelled 08/20/20 16:02 Amorphous Sediment Cancelled 08/20/20 16:02 Glitter Cells Cancelled 08/20/20 16:02 Urine Bacteria Cancelled 08/20/20 16:02 Hyaline Casts Cancelled 08/20/20 16:02 Fine Granular Casts Cancelled 08/20/20 16:02 Coarse Granular Casts Cancelled 08/20/20 16:02 Waxy Casts Cancelled 08/20/20 16:02 RBC Casts Cancelled 08/20/20 16:02 WBC Casts Cancelled 08/20/20 16:02 Urine Mucus Cancelled 08/20/20 16:02 Urine Other Cancelled 08/20/20 16:02 Urine Trichomonas Cancelled 08/20/20 16:02 Urine Yeast Cancelled 08/20/20 16:02 Ur Yeast w Hyphae Cancelled 08/20/20 16:02 Urine Yeast (Budding) Cancelled 08/20/20 16:02 Urine Sperm Cancelled 08/20/20 16:02 Urine Culture Reflexed Cancelled 08/20/20 16:02 Urine Total Volume Cancelled 08/20/20 16:02 Smear Scan Ok (OK) 08/20/20 16:30 ABO/Rh O POSITIVE 08/20/20 17:29 Solid Phase Ab Screen Negative 08/20/20 17:29 Crossmatch See Detail 08/20/20 17:29 Imagings Data: CXR -b/l pulmonary nodules - Problems (1) Acute renal failure Current Visit: Yes Status: Acute (2) Anemia Current Visit: Yes Status: Acute (3) Metabolic acidosis Current Visit: Yes Status: Acute (4) Metastatic colon cancer in female Current Visit: Yes Status: Acute (5) Thrombocytopenia Current Visit: Yes Status: Acute (6) Chest pain, rule out acute myocardial infarction Onset Date: 01/13/19 Current Visit: No Status: Acute Physician Review Additional Text: # ARF - likely due to chemo-related tubular injury -possible fanconi syndrome considered -will obtain urine studies for fena , serum magnesium and phosphorous level -slight improving creatinine to 1.5 from IVF noted but given fluid overload and new onset SOB , will add diuretics -expected creatinine may worsen - obtain urine proteinuria level to r/o associated nephrotic syndrome - will adjust bicarb gtt -keep MAP > 70 # Metabolic Acidosis - will start po sodium bicarb 1300 mg tid - reduce IVF bicarb in D5W to 100cc/hr - due to OZZY # Hypokalemia - since plan for diurteics - increase kcl to 20 meq bid # Anemia - may be due to chemo related -consider PRBC 2 unit today to keep h/h > 9 since chest pain and r/o ACS # Hypotension -controlled , improved BP now # Colon cancer with mets -agree with palliative care approach if needed
[2020-08-24] MEDS: SODIUM BICARB 325 MG TAB PO SCH ×2 (12:52→20:39)
[2020-08-24] MEDS: FUROSEMIDE 40 MG/4 ML VIAL IV SCH (12:52)
--- NOTE | 2020-08-24 13:36 | P.PN ---
Subjective Date of Service: 08/24/20 Chief Complaint: Septic shock Patient states she is feeling much better. Blood pressure has been stable. Patient is also eating well. She also stated his stool frequency has improved. She has been afebrile. Blood cultures have yielded no growth. Physical Examination - Vital Signs Temperature: 98.0 F Blood Pressure: 131/69 Pulse: 81 Respirations: 18 Pulse Ox (%): 95 - Physical Exam General: Alert, In no apparent distress HEENT: Mucous membr. moist/pink Respiratory: Clear to auscultation bilaterally, Normal air movement Cardiovascular: Normal pulses, Regular rate/rhythm, Normal S1 S2, Edema (Bila teral lower extremities, worse on the right.) Gastrointestinal: Normal bowel sounds, Soft and benign, Non-distended, No tenderness Assessment And Plan - Current Problems (Diagnosis) (1) Septic shock Current Visit: Yes Status: Acute (2) Acute renal failure Current Visit: Yes Status: Acute (3) Metastatic colon cancer in female Current Visit: Yes Status: Acute (4) Metabolic acidosis Current Visit: Yes Status: Acute (5) Thrombocytopenia Current Visit: Yes Status: Acute (6) Anemia Current Visit: Yes Status: Acute - Plan Continue antibiotics. Nephrology input appreciated. Patient started on oral bicarb replacement. IV fluid reduce. Blood cultures: No growth to date. Feeding as tolerated. Monitor CBC to follow hemoglobin and platelet count. PRBC transfusion p.r.n. Avoid anticoagulants and antiplatelets. SCD for DVT prophylaxis.
[2020-08-24] MEDS: CEFEPIME/SWI 1gm 10 ML IVP SCH (20:39)
[2020-08-24] MEDS: ATORVASTATIN 10 MG TAB PO SCH (20:40)
[2020-08-25 05:54] LABS: Absolute Lymphocytes (CBC) 0.3 K/uL (0.7-4.9); Basophils % 0.3 % (0-1.3); Hematocrit 26.3 % (36.0-45.0); MPV 8.8 fL (7.6-11.3); RBC Red Blood Cell Count 2.89 M/uL (3.86-4.86)
[2020-08-25 06:03] LABS: Albumin 2.1 g/dL (3.4-5.0); Bilirubin Total 0.5 mg/dL (0.2-1.0); Potassium 3.7 mmol/L (3.5-5.1); Protein, Total 5.9 g/dL (6.4-8.2)
[2020-08-25] MEDS ORDERED: POTASSIUM CL SA 10 MEQ TAB PO ONE (06:06)
[2020-08-25] MEDS: VANCOMYCIN/NS 1 gm 1 GM/250 ML BAG IVPB SCH (06:20)
[2020-08-25] MEDS: CEFEPIME/SWI 1gm 10 ML IVP SCH ×2 (08:56→20:23)
[2020-08-25] MEDS: GABAPENTIN 300 MG CAP PO SCH ×2 (08:59→20:23)
[2020-08-25] MEDS: FE SULF/FA/VIT B COMP & C TAB PO SCH (09:00)
[2020-08-25] MEDS: dexAMETHasone 4 MG TAB PO SCH (09:00)
[2020-08-25] MEDS: POTASSIUM CL SA 10 MEQ TAB PO SCH ×2 (09:00→20:23)
[2020-08-25] MEDS: FUROSEMIDE 40 MG/4 ML VIAL IV SCH (09:01)
--- NOTE | 2020-08-25 11:55 | P.PN ---
Subjective Date of Service: 08/25/20 Chief Complaint: Septic shock Patient states she is feeling much better. She has no nd she is complain and she is eating well. She also stated his stool frequency has improved. She has been afebrile. Platelet, hemoglobin and WBC are dropping. Physical Examination - Vital Signs Temperature: 97.9 F Blood Pressure: 129/71 Pulse: 86 Respirations: 18 Pulse Ox (%): 93 - Physical Exam General: Alert, In no apparent distress Respiratory: Clear to auscultation bilaterally, Normal air movement Cardiovascular: Regular rate/rhythm, Normal S1 S2, Edema (Trace bilateral edema lower extremities.) Gastrointestinal: Normal bowel sounds, Soft and benign, No tenderness Musculoskeletal: No erythema Assessment And Plan - Current Problems (Diagnosis) (1) Septic shock Current Visit: Yes Status: Acute (2) Acute renal failure Current Visit: Yes Status: Acute (3) Metastatic colon cancer in female Current Visit: Yes Status: Acute (4) Metabolic acidosis Current Visit: Yes Status: Acute (5) Thrombocytopenia Current Visit: Yes Status: Acute (6) Anemia Current Visit: Yes Status: Acute (7) Diarrhea Current Visit: Yes Status: Acute - Plan Continue antibiotics for 1 more day. Nephrology input appreciated. Patient started on oral bicarb replacement. Metabolic acidosis has improved. Reduce IV fluid rate. Blood cultures: No growth to date. Diarrhea improved. Feeding as tolerated. Monitor CBC to follow hemoglobin and platelet count. PRBC transfusion p.r.n. Avoid anticoagulants and antiplatelets. SCD for DVT prophylaxis.
[2020-08-25] MEDS: D5W 1,000 ML with NA BICARB 8.4% 50 MEQ IV SCH ×4 (14:57→20:23)
[2020-08-25] MEDS: SODIUM BICARB 325 MG TAB PO SCH ×2 (14:58→20:23)
[2020-08-25] MEDS: ATORVASTATIN 10 MG TAB PO SCH (20:23)
[2020-08-26 04:20] LABS: Absolute Lymphocytes (CBC) 0.3 K/uL (0.7-4.9); Basophils % 0.1 % (0-1.3); Hematocrit 23.5 % (36.0-45.0); Lymphocytes % 10.6 % (15.3-44.8); MPV 9.1 fL (7.6-11.3)
[2020-08-26 04:30] LABS: Bilirubin Total 0.5 mg/dL (0.2-1.0); Potassium 4.3 mmol/L (3.5-5.1); Protein, Total 5.4 g/dL (6.4-8.2)
[2020-08-26] MEDS: D5W 1,000 ML with NA BICARB 8.4% 50 MEQ IV SCH ×4 (05:39→16:34)
[2020-08-26] MEDS: SODIUM BICARB 325 MG TAB PO SCH (08:56)
[2020-08-26] MEDS: dexAMETHasone 4 MG TAB PO SCH (08:56)
[2020-08-26] MEDS: FE SULF/FA/VIT B COMP & C TAB PO SCH (08:57)
[2020-08-26] MEDS: POTASSIUM CL SA 10 MEQ TAB PO SCH (08:57)
[2020-08-26] MEDS: FUROSEMIDE 40 MG/4 ML VIAL IV SCH (08:59)
[2020-08-26] MEDS: GABAPENTIN 300 MG CAP PO SCH (08:59)
[2020-08-26] MEDS: CEFEPIME/SWI 1gm 10 ML IVP SCH (09:00)
[2020-08-26] MEDS ORDERED: MAGNESIUM SULFATE 1 gm IVPB 1 GM/100 ML BAG IV ONE (12:32)
--- NOTE | 2020-08-26 15:12 | P.DS ---
Admission Date: 08/20/20 Discharge Date: 08/26/20 Disposition: HOSPICE-HOME Discharge Condition: FAIR Reason for Admission: Septic shock - Problems (1) Septic shock Current Visit: Yes Status: Acute (2) Acute renal failure Current Visit: Yes Status: Acute (3) Metastatic colon cancer in female Current Visit: Yes Status: Acute (4) Metabolic acidosis Current Visit: Yes Status: Acute (5) Thrombocytopenia Current Visit: Yes Status: Acute (6) Anemia Current Visit: Yes Status: Acute (7) Diarrhea Current Visit: Yes Status: Acute Brief History of Present Illness: 70-year-old woman with a history of colon cancer on radiation therapy presented to the emergency department with a complaint fatigue, intermittent mucoid stools and nausea and vomiting. Patient was found to be in septic shock in the ED, with low blood pressure, severe leukocytosis and febrile. Patient was given IV normal saline bolus, antibiotic and started on Levophed drip and admitted for further management. Hospital Course: Patient admitted to the ICU and treated with aggressive antibiotic therapy, IV hydration and vasopressors. Her blood cultures and urine culture yielded no growth. Patient responded to treatment. Her blood pressure improved and she became normotensive after weaning off vasopressors. She had an episode of rectal bleed. Her hemoglobin also dropped requiring PRBC transfusion. Patient did not require intubation. She was maintained on oxygen by nasal cannula. She has clinically improve, eating better and has been afebrile for several days. Patient and daughter opted for hospice placement. Patient seen and evaluated by hospice. She is discharged to home with hospice. Vital Signs/Physical Exam: Temp Pulse Resp BP Pulse Ox 98.5 F 103 H 18 126/61 91 08/26/20 12:00 08/26/20 12:00 08/26/20 12:00 08/26/20 12:08/26/20 12:00 General: Alert, In no apparent distress HEENT: Mucous membr. moist/pink Respiratory: Clear to auscultation bilaterally, Normal air movement Cardiovascular: Regular rate/rhythm, Normal S1 S2, Edema (Bilateral lower extremities) Gastrointestinal: Normal bowel sounds, Soft and benign, Non-distended, No tenderness Neurological: Normal speech, Normal strength at 5/5 x4 extr Laboratory Data at Discharge: WBC 3.3 K/uL (4.3-10.9) L D 08/26/20 03:21 Hgb 7.9 g/dL (12.0-15.0) L* 08/26/20 03:21 Hct 23.5 % (36.0-45.0) L 08/26/20 03:21 Plt Count 17 K/uL (152-406) L* 08/26/20 03:21 PT 13.2 SECONDS (9.5-12.5) H 08/20/20 16:30 INR 1.12 08/20/20 16:30 APTT 31.6 SECONDS (24.3-36.9) 08/20/20 16:30 Sodium 139 mmol/L (136-145) 08/26/20 03:21 Potassium 4.3 mmol/L (3.5-5.1) 08/26/20 03:21 BUN 56 mg/dL (7-18) H 08/26/20 03:21 Creatinine 1.65 mg/dL (0.55-1.3) H 08/26/20 03:21 Glucose 159 mg/dL (74-106) H 08/26/20 03:21 Phosphorus 2.6 mg/dL (2.5-4.9) 08/24/20 12:30 Magnesium 1.6 mg/dL (1.8-2.4) L 08/26/20 12:01 Total Bilirubin 0.5 mg/dL (0.2-1.0) 08/26/20 03:21 AST 46 U/L (15-37) H 08/26/20 03:21 ALT 28 U/L (12-78) 08/26/20 03:21 Alkaline Phosphatase 100 U/L (45-117) 08/26/20 03:21 Triglycerides 205 mg/dL (<150) H 08/21/20 05:30 Cholesterol 200 mg/dL (<200) 08/21/20 05:30 HDL Cholesterol 31 mg/dL (40-60) L 08/21/20 05:30 Cholesterol/HDL Ratio 6.45 08/21/20 05:30 Lipase 51 U/L (73-393) L 08/20/20 16:30 Home Medications: Furosemide [Lasix*] 40 mg PO DAILY 02/05/15 Potassium Chloride 20 meq PO DAILY 02/05/15 Pravastatin Sodium [Pravachol] 20 mg PO DAILY 03/10/15 Gabapentin 600 mg PO BID 08/20/20 Iron/FA/Vit B-Com W/C [Hemocyte Plus*] 1 cap PO DAILY 08/20/20 Ensure Enlive 237 ml PO BID #60 can 08/26/20 Na Bicarb Tab [Sodium Bicarb 325 MG Tab*] 1,300 mg PO BID #60 tab 08/26/20 dexAMETHasone [Decadron*] 4 mg PO DAILY #10 tab 08/26/20 New Medications: dexAMETHasone [Decadron*] 4 mg PO DAILY #10 tab Ensure Enlive 237 ml PO BID #60 can Na Bicarb Tab [Sodium Bicarb 325 MG Tab*] 1,300 mg PO BID #60 tab Diet: Regular Activity: Fall precautions Time spent managing pt's care (in minutes): 42
[2020-08-26 16:35] VITALS: O2SAT 93
[2020-08-26 20:51] VITALS: BP 134/67; TEMP 99.4
[2020-08-26] MEDS ORDERED: ENSURE ENLIVE 237 ML CAN PO SCH (21:00)
== END 2020-08-26 20:25 | disposition hospice, home (50) | DRG 871 ==
LOC: ER 15:53 → ERHOLD 21:11 → 4TH 08-23 20:14
PROVIDERS: ADMIT Internal Medicine; ATTEND Internal Medicine
PROC: 30233N1 Transfusion of Nonautologous Red Blood Cells into Peripheral Vein, Percutaneous Approach (ICD-10-PCS; principal; 2020-08-20)
DX: A41.9 Sepsis, unspecified organism (principal); R65.21 Severe sepsis with septic shock; C78.00 Secondary malignant neoplasm of unspecified lung; C79.31 Secondary malignant neoplasm of brain; C78.7 Secondary malignant neoplasm of liver and intrahepatic bile duct; N17.9 Acute kidney failure, unspecified; E87.2 Acidosis; I10 Essential (primary) hypertension; E78.5 Hyperlipidemia, unspecified; D63.8 Anemia in other chronic diseases classified elsewhere; E86.0 Dehydration; D64.81 Anemia due to antineoplastic chemotherapy; D63.0 Anemia in neoplastic disease; D69.6 Thrombocytopenia, unspecified; L59.8 Other specified disorders of the skin and subcutaneous tissue related to radiation; E87.6 Hypokalemia; Z85.038 Personal history of other malignant neoplasm of large intestine; Z79.899 Other long term (current) drug therapy; Z66 Do not resuscitate; Z20.828 Contact with and (suspected) exposure to other viral communicable diseases
CPT/HCPCS: 36415; 71045; 80048; 80053; 80061; 80076; 80202; 82550; 82565; 83605; 83690; 83735; 84100; 84145; 84484; 85025; 85610; 85730; 86850; 86900; 86901; 87040; 87804; 93005; 93971; 97116; 97161; 97530; 99291; 99292; J0360; J0690; J0692; J1940; J3370; J3475; J7030; J7060; J8540; P9016; U0002